=== PATIENT | female | born 1970 | race Caucasian/White ===

== ENCOUNTER 2023-03-19 09:18 | Outpatient (CLI) | payer MEDICARE, SELFPAY | END 2023-03-19 09:19 | disposition home or self-care (01) | LOC: KYNREF 09:20 | PROVIDERS: PCP Nurse Practitioner Family; Visit Provider Nurse Practitioner Family | DX: Z01.818 Encounter for other preprocedural examination (principal) | CPT/HCPCS: 84132 ==

== ENCOUNTER 2023-03-23 06:32 | Day surgery (SDC) | payer MEDICARE, SELFPAY ==
[2023-03-23 06:46] VITALS: BP 140/87; PULSE 84; RESP 16; TEMP 36.7; O2SAT 96
[2023-03-23] MEDS: LACTATED RINGERS 1000 ML 1,000 ML 100 ML IV (06:50)
[2023-03-23] MEDS: SODIUM CHLORIDE 0.9 % (FLUSH) 10 ML SYRINGE IVF (06:50)
[2023-03-23 06:59] VITALS: BMI 40.3
[2023-03-23] MEDS: MIDAZOLAM HCL 1 MG/ML inj IVP (07:08)
[2023-03-23] MEDS: fentaNYL 100 MCG/2 ML inj IVP (07:08)
[2023-03-23 07:09] VITALS: BP 130/84; PULSE 81; RESP 16; O2SAT 96
--- NOTE | 2023-03-23 07:15 | CRLHL7_ITS ---
For Patients: As a result of the Cures Act, medical imaging exams and procedure reports are released immediately into your electronic medical record. You may view this report before your referring provider. If you have questions, please contact your health care provider. Indication: intra-op wrist fx Technique: Four fluoroscopic images of the right wrist. Fluoroscopic time is 61.1 seconds. IMPRESSION: Fluoroscopic guidance for open reduction internal fixation right distal radial metaphyseal fracture. Dictated by Talib Donaldson MD @ 03/23/2023 10:45:39 AM (Electronically Signed)
--- NOTE | 2023-03-23 07:15 | SUR.PREOP ---
TIME?OUT:?0708 PT/RN/MDA?VERIFICATION?OF?SURGICAL?SITE,?PROCEDURE,?AND?CONSENT OBTAINED?PRIOR?TO?INVASIVE?PROCEDURE.
--- NOTE | 2023-03-23 08:02 | W.ANESCHARGE ---
Anesthesia Charges Start Date/Time Anesthesia Start Date: 03/23/23 Anesthesia Start Time: 07:19 Stop Date/Time Anesthesia Stop Date: 03/23/23 Anesthesia Stop Time: 08:51
--- NOTE | 2023-03-23 08:24 | P.ORPRC_ITS ---
Procedure Note Date of procedure: 03/23/23 Procedure: PREOPERATIVE DIAGNOSIS: Angulated 2 part extra-articular right upper extremity distal radius fracture POSTOPERATIVE DIAGNOSIS: Angulated 2 part extra-articular right upper extremity distal radius fracture NAME OF OPERATION: Open reduction internal fixation SURGEON: Nitin Ogden MD SECURITY ATTENDANT: Jessy Gerard PA-C ANESTHESIA: Supraclavicular block plus monitored anesthesia care ESTIMATED BLOOD LOSS: 0 mL COMPLICATIONS: None SPECIMENS: None DRAINS: None PREOPERATIVE ANTIBIOTICS: Ancef 3 grams INDICATIONS: The patient is a 52-year-old who fell landing on their upper extremity sustaining the above injury. Given the amount of angulation, reduction and plate fixation were recommended. The risks, benefits and expected outcomes were discussed in detail. These included but were not limited to: Infection, bleeding, injury to blood vessel or nerve, venous thromboembolism. All questions were answered to their satisfaction. Use of an assistant golf course superintendent was necessary throughout the case for patient positioning and safety, maintenance of the reduction, surgical site dressing and splint application. PROCEDURE: A supraclavicular block was placed by Anesthesia. The patient was placed supine on the operating room table. IV sedation was administered. The reduction was obtained with longitudinal traction and volar force on the distal fragment, held by the assistant golf course superintendent. The image intensifier was used to confirm an excellent reduction. The extremity was prepped and draped in the usual sterile fashion. The limb was exsanguinated with the bandage. The pneumatic tourniquet was inflated to 250 mm of mercury. A longitudinal incision was made over the flexor carpi radialis. Subcutaneous dissection was taken sharply through the FCR sheath. The FCR was retracted radially. Sharp dissection was carried through the floor of the FCR sheath. The flexor pollicis longus was retracted ulnarly. Sharp dissection was carried through the radial border of the pronator quadratus which was elevated ulnarly, exposing the fracture site. The assistant golf course superintendent held retractors to expose the fracture. The volar cortex of the fracture is anatomically aligned. We placed a Synthes standard, 6 hole volar locking plate over the volar cortex. It was provisionally held with a K-wire x 2, while the assistant golf course superintendent held the reduction. Its placement was confirmed with the image intensifier. We placed a cortical screw in the slot. We placed a locking screw in the shaft. We then filled the distal screw holes with smooth locking pegs using the image intensifier to confirm their extra-articular placement. Finally, a 2nd locking screw was placed in the shaft fragment. This construct was imaged in multiple views and was felt to be well placed with an anatomic reduction and well placed implants. The wound was irrigated normal saline. Subcutaneous tissues were reapproximated a 2-0 Vicryl, skin with a running 3-0 Monocryl in a subcuticular fashion. Glue was used to seal the skin. A dry dressing and short-arm dorsal volar splint was applied. These steps were all completed by the assistant golf course superintendent. The tourniquet was released, sponge and needle counts were correct x2. The patient tolerated the procedure well, there were no apparent complications. They were taken to the postanesthesia care unit in satisfactory condition. PLAN: The patient will be discharged home. They will work on elevation of the hand and active range of motion of the fingers. They will follow up next week in the office for a wound check with a PA, oblique, lateral and fossa lateral view of the wrist out of the splint prior to being seen in preparation for early active motion with Orthoplast splint protection.
--- NOTE | 2023-03-23 08:42 | P.NB_ITS ---
Nerve Block Nerve Block Time Seen by Provider: 07:13 Date Seen: 03/23/23 Type of block requested by surgeon for post-operative analgesia: axillary Side: right Time out performed: Yes Verification of patient name: Yes Verification of date of : Yes Site marking: site marked Name of person performing procedure: George Continuous monitoring Was continuous monitoring of O2 sat, B/P, portfolio specialist, recorded every 15 minutes?: Yes Procedure Checklist: sterile prep, needles and gloves Ultrasound guided. Images saved: Yes Medications given in 5ml increments after negative aspiration: Ropivicaine %: 0.5 mL: 30 Needle gauge: 22 Patient tolerated procedure well: Yes Additional comments: Needle noted adjacent to nerve Block Charges Block Charge (with Pro Fee): Brachial Plexus Use of Ultrasound Machine for Block: Yes- US Guidance/pain block
--- NOTE | 2023-03-23 08:42 | W.ANESCHARGE ---
Anesthesia Charges Start Date/Time Anesthesia Start Date: 03/23/23 Anesthesia Start Time: 07:19 Stop Date/Time Anesthesia Stop Date: 03/23/23 Anesthesia Stop Time: 08:51
[2023-03-23 08:47] VITALS: BP 140/96; PULSE 86; RESP 16; TEMP 36.7; O2SAT 95
[2023-03-23] MEDS: hydrOXYzine pamoate 25 MG CAPSULE PO (08:56)
[2023-03-23 09:00] VITALS: BP 102/77; PULSE 75; RESP 16; O2SAT 93
[2023-03-23 09:15] VITALS: BP 138/84; PULSE 77; RESP 16; O2SAT 96
[2023-03-23] MEDS: OXYCODONE 5 MG TABLET PO (09:26)
[2023-03-23 09:30] VITALS: BP 138/85; PULSE 75; RESP 16; O2SAT 96
== END 2023-03-23 10:13 | disposition home or self-care (01) ==
PROVIDERS: PCP Nurse Practitioner Family; Visit Provider Orthopaedic Surgery
PROC: (CPT 25575; principal; 2023-03-23 07:15)
DX: S52.551A Other extraarticular fracture of lower end of right radius, initial encounter for closed fracture (principal); G89.18 Other acute postprocedural pain
CPT/HCPCS: 25607; 01830; 64415; 73110; 76000; 76942; A4580; A9270; C1713; J2250; J2704; J2795; J3010; J7120

== ENCOUNTER 2023-05-05 15:00 | Outpatient (RCR) | payer MEDICARE, SELFPAY ==
--- NOTE | 2023-03-31 15:59 | OT.OPOE ---
OT Outpatient Ortho Eval OT Outpatient Ortho Eval* Start: 03/31/23 14:59 Freq: Status: Active Protocol: Document 03/31/23 14:59 AMB (Rec: 03/31/23 15:57 AMB [id number]) E-signed By Sarika Pires, OTR/L, CLT, BLASTING HELPER OT OP Ortho Eval Details Complexity Complexity Low Insurance Information Other Insurance A[employer] Outpatient History/Precautions Current Condition/Medical Diagnosis Referring Provider Dr Ogden Treatment Diagnosis RUE DR Steiner Date of Onset DOI: 03/11/23, DOS:03/23/23 Medical Conditions Depression,Metal Implants, Arthritis Other Conditions PMH: (copied from medical chart) Active Problems (Updated 03/11 @ 12:02 by Ariana Hammonds, GRAIN UNLOADER MACHINE, DELIMBER OPERATOR) Distal radial fracture (Acute) S52.509A - Unspecified fracture of the lower end of unspecified radius, initial encounter for closed fracture (ICD-10) Urinary tract infection (Acute ) N39.0 - Urinary tract infection, site not specified (ICD-10) History of gastric bypass ( Acute) Z98.84 - Bariatric surgery status (ICD-10) Urinary incontinence (Acute) R32 - Unspecified urinary incontinence (ICD-10) History of bladder surgery ( Acute) bladder sling x2 Z98.890 - Other specified postprocedural states (ICD-10) Encounter to establish care ( Acute) Z76.89 - Persons encountering health services in other specified circumstances (ICD- 10) Urinary frequency (Acute) R35.0 - Frequency of micturition (ICD-10) Cough (Acute) R05.9 - Cough, unspecified ( ICD-10) Nasal sore (Acute) right nostril, non-healing J34.89 - Other specified disorders of nose and nasal sinuses (ICD-10) Iron deficiency (Acute) E61.1 - Iron deficiency (ICD- 10) Chronic neck pain (Acute) M54.2 - Cervicalgia (ICD-10) G89.29 - Other chronic pain ( ICD-10) Chronic back pain (Acute) M54.9 - Dorsalgia, unspecified (ICD-10) G89.29 - Other chronic pain ( ICD-10) Anxiety and depression (Acute) F41.9 - Anxiety disorder, unspecified (ICD-10) F32.A - Depression, unspecified (ICD-10) Insomnia (Acute) G47.00 - Insomnia, unspecified (ICD-10) Hypertension (Acute) I10 - Essential (primary) hypertension (ICD-10) Surgical History (Updated @ 17:02 by Ariana Hammonds APRN, DELIMBER OPERATOR) History of gastric bypass Z98.84 - Bariatric surgery status (ICD-10) History of total knee replacement Z96.659 - Presence of unspecified artificial knee joint (ICD-10) History of bladder surgery Z98.890 - Other specified postprocedural states (ICD-10) History of bunionectomy Z98.890 - Other specified postprocedural states (ICD-10) History of tonsillectomy Z90.89 - Acquired absence of other organs (ICD-10) History of back surgery Z98.890 - Other specified postprocedural states (ICD-10) History of hysterectomy Z90.710 - Acquired absence of both cervix and uterus (ICD-10 ) Medical/Functional History Medical History Reviewed Yes Prior Level of Function/Mobility Full, pain-free use of her RUE . Social History Employment Status Retired Hobbies NA Fitness NA Ortho Subjective Subjective Subjective Pt states that she slipped and fell down the steps at her home on 03/11/23 sustaining the wrist fx. Pt was seen in urgent care and referred to orthopedics, underwent ORIF of the RUE DR on 03/23/23. Pt states she feels she is doing well, minimal pain most of the time, but if she bumps or twists her wrist/hand pain is 8/10. Range of Motion and Strength Wrist Range of Motion and Strength Wrist Range of Motion and Strength 03/31/23 AROM of the RUE wrist flex is 45, ext is 35, UD is 30, RD is 20, pronation is 50, supination is 70, composite fist is WNL. Strength testing was deferred secondary to the acuteness of injury/surgery. OT Objective Data Hand Hand Dominance Right Skin/Wounds/Edema Comments 03/31/23 Surgical incision is healing well, no drainage, no s/s of infection, covered with surgical glue. OT Problems Problems Problems Decreased Strength,Decreased Range of Motion,Decreased Dexterity,Pain,Lifting, Gripping,Pinching Other Problems Writing,Opening Containers, Dressing,Computer,Fasteners Patient Potential Good Assessment Assessment Assessment Pt presents to OT with pain, swelling, limited AROM, and weakness of the RUE secondary to DR steiner with ORIF. Pt is limited in her ability to open containers, cook, clean and has difficulty with self care tasks such as hooking her bra, brushing her teeth, etc. Pt will benefit from skilled OT intervention to address deficits and restore full, pain-free use of her RUE in order to resume independence with all ADLs and IADLs. Occupational Therapy Treatment Plan - OP Potential Rehabilitation Potential Good Set Goals Goals Set with Patient Yes Goals Goals 1. Pt will be independent and compliant with HEP in order to resume full, pain-free use of the involved UE. 3 weeks 2. Pt will demonstrate full, pain-free AROM of the involved UE in order to improve ability to grasp and hold. 6 weeks 3. 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 8 weeks. Treatment Plan Treatment Plan Evaluation,Edema Control,Joint Mobilization,Manual Therapy, Splinting,Wound Care/Scar Management,Therapeutic Exercise,Therapeutic Activities,Self Care/Home Management,Education Expected Frequency 1-2x Week Expected Duration 6-8 Weeks Home Program Home Program Home Program Initiated Home Program Specifics 03/31/23 Provided training and practice in HEP for AROM and non resisted muscle pumps for edema reduction of the RUE. Following demo, pt is able to complete exs with minimal cues . Pt was provided with written inst for use at home as well. Certification Certification I Certify That: Therapy Services Provided, Therapy Plan Established, Therapy Plan Reviewed Recertification Information Recertification Information Initial Certification Date 03/31/23 Recertification Due Date 06/29/23 Reasons to Continue Skilled Therapy Initiated OT today secondary to pain, weakness, swelling, and limited AROM of the RUE which limits independence in ADLs and IADLs. Rehabilitation Potential Good Continued Plan of Care and Interventions Please see above Provider Signature Shows Agreement With POC & Medical Necessity Physician Comment/Change Comment or Changes Physician NPI Number #
== END 2023-06-11 16:04 | disposition home or self-care (01) ==
PROVIDERS: PCP Nurse Practitioner Family; Visit Provider Orthopaedic Surgery
DX: S52.501D Unspecified fracture of the lower end of right radius, subsequent encounter for closed fracture with routine healing (principal); Z51.89 Encounter for other specified aftercare
CPT/HCPCS: 97140; 97165; L3906

== ENCOUNTER 2023-05-28 11:48 | Outpatient (CLI) | payer MEDICARE, SELFPAY | END 2023-05-28 11:49 | disposition home or self-care (01) | PROVIDERS: PCP Nurse Practitioner Family; Visit Provider Nurse Practitioner Family | DX: M25.50 Pain in unspecified joint (principal) | CPT/HCPCS: 85651; 86039; 86140; 86431 ==

== ENCOUNTER 2023-06-24 13:10 | Outpatient (CLI) | payer MEDICARE, SELFPAY | END 2023-06-24 13:11 | disposition home or self-care (01) | PROVIDERS: PCP Nurse Practitioner Family; Visit Provider Nurse Practitioner Family | DX: M25.50 Pain in unspecified joint (principal); R51.9 Headache, unspecified; Z11.9 Encounter for screening for infectious and parasitic diseases, unspecified; Z11.3 Encounter for screening for infections with a predominantly sexual mode of transmission | CPT/HCPCS: 85025; 85651; 86140; 86618; 87798 ==

== ENCOUNTER 2023-07-01 12:54 | Outpatient (CLI) | payer MEDICARE, SELFPAY | END 2023-07-01 12:55 | disposition home or self-care (01) | PROVIDERS: PCP Nurse Practitioner Family; Visit Provider Nurse Practitioner Family | DX: R82.90 Unspecified abnormal findings in urine (principal) | CPT/HCPCS: 81015; 87086 ==

== ENCOUNTER 2023-08-17 14:45 | Outpatient (CLI) | payer MEDICARE, SELFPAY ==
[2023-08-17 22:35] LABS: SARS PCR* POSITIVE SARS-CoV-2 (Negative)
== END 2023-08-17 14:46 | disposition home or self-care (01) ==
LOC: KYNREF 14:45
PROVIDERS: PCP Nurse Practitioner Family; Visit Provider Nurse Practitioner Family
DX: J11.1 Influenza due to unidentified influenza virus with other respiratory manifestations (principal)
CPT/HCPCS: 87635

== ENCOUNTER 2024-01-20 15:53 | Outpatient (CLI) | payer MEDICARE, SELFPAY ==
--- OUTSIDE RECORDS SUMMARY | 2024-01-20 15:56 | XMS_ITS | Clinical Summary ---
Author Name Unknown Organization [facility] Address [place], [place] [address] Care Team Providers Care Thread Cutter Name Role Phone Ayala Benites DO Primary Care Provider [phone] Allergies No known active allergies Medications Medication Sig Dispensed Refills Start Date End Date Status Cholecalciferol, Vitamin D3, (VITAMIN D-3) 5,000 unit tab Take by mouth once daily. Active Biotin 10,000 mcg capsule Take 1 capsule by mouth once daily. 0 10/28/2017 Active DULoxetine (CYMBALTA) 60 mg Delayed-release capsuleIndications:C hronic anxiety,Chronic bilateral low back pain with right-sided sciatica Take 1 capsule by mouth once daily. 90 capsule 3 06/28/2018 Active multivitamins with minerals (HAIR,SKIN AND NAILS) tablet Take 1 tablet by mouth once daily. 01/30/2019 Active ferrous sulfate, 65 mg elemental, tabletIndications:Ir on deficiency Take 1 tablet by mouth 2 times daily. 180 tablet 2 05/10/2019 Active ibuprofen (ADVIL; MOTRIN) 800 mg tabletIndications:Ba ck pain without radiation Take 1 tablet by mouth every 8 hours if needed. 270 tablet 1 05/10/2019 Active QUEtiapine (SEROQUEL) 100 mg tabletIndications:In somnia, idiopathic,MDD (major depressive disorder), recurrent severe, without psychosis (HC) Take 1 tablet by mouth at bedtime. 90 tablet 09/04/2019 Active ondansetron (ZOFRAN ODT) 4 mg disintegrating tabletIndications:Al cohol abuse Place 1 tablet on the tongue every 8 hours if needed for Nausea/Vomiting. 30 tablet 09/04/2019 Active zolpidem CR (AMBIEN CR) 12.5 mg Extended-Release tabletIndications:In somnia, idiopathic Take 1 tablet by mouth at bedtime if needed. 30 tablet 2 10/30/2019 Active gabapentin (NEURONTIN) 600 mg tabletIndications:Ch ronic bilateral low back pain with right-sided sciatica Take 1 tablet by mouth 3 times daily. 270 tablet 10/30/2019 Active cyclobenzaprine (FLEXERIL) 10 mg tabletIndications:Ch ronic bilateral low back pain with right-sided sciatica Take 1 tablet by mouth 3 times daily if needed for Muscle Spasm. 270 tablet 10/30/2019 Active sertraline (ZOLOFT) 100 mg tabletIndications:Al cohol abuse Take 1.5 tablets by mouth once daily. 135 tablet 10/30/2019 Active ondansetron (ZOFRAN) 4 mg tablet Take 4 mg by mouth 3 times daily if needed. 02/20/2020 Active amLODIPine (NORVASC) 10 mg tablet Take 10 mg by mouth. 05/22/2020 Active methylPREDNISolone (MEDROL) 4 mg tabletIndications:Ada mbar radicular pain Medrol Dosepack, Take As Directed 1 tablet 1 07/11/2020 Active busPIRone (BUSPAR) 15 mg tabletIndications:An xiety Take 15 mg by mouth 2 times daily. 60 Tab 5 07/17/2020 Active buprenorphine 5 mcg/hr (BUTRANS) 5 mcg/hour transdermal patchIndications:Lum bar disc herniation Apply 1 Patch on dry, clean, hairless skin once weekly. 4 Patch 07/23/2020 Active semaglutide (Ozempic) 2 mg/dose (8 mg/3 mL) pen Inject 0.75 mL (2 mg) subcutaneous once weekly. 3 mL 3 09/10/2023 Active Hospital, Clinic, or Other Facility Administered Medication Ordered Dose Route Frequency Start Date End Date Status midazolam (PF) (VERSED) injection 0.5-6 mgIndications:Lumbar radicular pain 0.5 - 6 mg IV EACH TIME PRN 07/17/2020 Active fentaNYL (PF) 50 mcg injection (SUBLIMAZE)Indications:Ada mbar radicular pain 50 mcg IV EACH TIME PRN 07/17/2020 Ac tive midazolam (PF) (VERSED) injection 0.5-6 mgIndications:Spondylosis of lumbar region without myelopathy or radiculopathy 0.5 - 6 mg IV EACH TIME PRN 08/09/2020 Active fentaNYL (PF) 50 mcg injection (SUBLIMAZE)Indications:Sp ondylosis of lumbar region without myelopathy or radiculopathy 50 mcg IV EACH TIME PRN 08/09/2020 Activ e Active Problems Patient Care Coordination No te Formatting of this note migh t be different from the original. Her children, and grandchildren are what matters most to Peggy. Peggy would like her care team to know has supportive kids, mother and her grandchildren. What are Peggy's challenges, stressors, or barriers? Financials, anxiety, Problem Noted Date Diagnosed Date Alcohol withdrawal syndrome without complication 04/01/2019 Hypertensive urgency 04/01/2019 Controlled substance agreement signed 04/11/2018 Overview: Controlled substance agreement signed on 04-11-18 in the pain clinic with Dr. Halley Verde MD, PhD Pain Management and Rehabilitation Specilialist of the [facility] pain clinic. See scanned images for further details. Last Assessment & Plan: Updated on 04-24-19. Primary osteoarthritis of both knees 12/24/2017 s/p pubovaginal sling repair 04/09/2017 Degenerative lumbar disc 02/19/2017 Status post lumbar discectomy 02/19/2017 Annular tear of lumbar disc 02/19/2017 Iron deficiency 12/02/2016 Menopausal hot flushes 12/02/2016 Failed back surgical syndrome 11/30/2016 Chronic bilateral low back pain with right-sided sciatica 08/24/2016 MDD (major depressive disord er), recurrent severe, without psychosis 08/24/2016 Closed fracture of sacrum and coccyx 03/09/2016 Controlled substance agreement signed 02/07/2016 Chronic abdominal pain 05/15/2015 Nausea and vomiting 06/22/2013 Gastric bypass status for obesity 03/23/2013 Torn meniscus S/P surgery 10/29/11 11/03/2011 Chronic anxiety 06/04/2011 Sleep disturbance 03/11/2011 Chronic headaches 01/29/2011 Chronic neck pain 01/29/2011 Incontinence in female Hypertension Resolved Problems Problem Noted Date Diagnosed Date Resolved Date Anxiety 02/05/2016 03/09/2016 Menopausal and perimenopausal disorder 11/07/2015 12/02/2016 Wheezing 02/07/2015 08/24/2016 Chronic pain 02/04/2015 03/09/2016 DUB (dysfunctional uterine bleeding) 02/04/2015 08/24/2016 Hypokalemia 06/22/2013 08/24/2016 Dehydration 06/22/2013 08/24/2016 Renal insufficiency 06/22/2013 08/24/20 16 Anxiety 03/23/2013 03/09/2016 Acute low back pain 11/03/2011 08/24/20 16 Chronic low back pain 11/06/20102015 Immunizations Name Administration Dates Next Due DT (Age < 7 years) 10/10/1993 Td (Age >=7 Years) 10/31/1992 Tdap 08/31/2018,09/15/2017,10/19/2007 Family History Medical History Relation Name Comments Cancer Maternal Grandfather Stroke Maternal Grandmother Diabetes Mother s/p amputations , kidney problems Kidney failure Mother Stage 4 Other Other Relation Name Status Comments Maternal Grandfather Maternal Grandmother Mother Other Social History Tobacco Use Types Packs/Day Years Used Date Smoking Tobacco: Never Cigarettes Smokeless Tobacco: Never Tobacco Cessation:Counseling Given: Yes Alcohol Use Standard Drinks/Week Comments Not Currently 0 (1 standard drink = 0.6 oz pure alcohol) 09/04/2019 - Declined to answer PHQ-2 Answer Date Recorded PHQ-2 Score 6 06/22/2019 Sex and Gender Information Value Date Recorded Sex Assigned at Not on file Gender Identity Not on file Sexual Orientation Not on file Obstetrics History Para Term AB IAB SAB Ectopic Multiple Livin g Live Births 2 2 2 2 Date Outcome GA Total Labor Labor/2nd/3rd Weight Sex Delivery Anes PTL Maggi A1 A5 Name Cl in Term Term Last Filed Vital Signs Vital Sign Reading Time Taken Comments Blood Pressure 136/80 09/04/2019 1:45 PM NEUROPHYSIOLOGICAL TECHNICIAN Pulse 102 09/04/2019 1:45 PM NEUROPHYSIOLOGICAL TECHNICIAN Temperature 36.6 ??C (97.8 ??F) 08/09/2020 1:26 PM CD T Respiratory Rate 18 09/04/2019 1:45 PM NEUROPHYSIOLOGICAL TECHNICIAN Oxygen Saturation 98% 08/09/2020 1:26 PM CDT Inhaled Oxygen Concentration - - Weight 104.3 kg (230 lb) 08/09/2020 1:26 PM CDT Height 172.7 cm (5' 8) 08/09/2020 1:26 PM CDT Body Mass Index 34.97 08/09/2020 1:26 PM CDT Plan of Treatment Health Maintenance Due Date Last Done Comments Colonoscopy through age 75 2014 Mammogram for age 45-75 2014 Zoster (shingles) series for age 50+ (1 of 2) 2019 Depression screening for age 12+ 09/04/2020 09/04/2019, 09/04/2019, 06/26/2019, Additional history exists BMI (ht and wt on same day) for age 18+ 08/09/2021 08/09/2020, 07/17/2020, 07/11/2020, Additional history exists Lipids for age 45-75 11/05/2021 11/05/2016, 11/24/19 14 COVID-19 vaccine series (2022- season) 2023 Influenza for age 50-64 06/11/2024 Tetanus booster 08/31/2028 08/31/2018, 03/2017, 10/19/2007, Additional history exists HIV for age 15-65 Completed 05/01/2016, 05/20/2012 Hepatitis C screening for age 18-79 Completed 05/01/2016 Tdap Completed 08/31/2018, 1203/2017, 10/19/2007 Pneumococcal series for age 6-64 Aged Out No longer eligible based on patient's age to complete this topic Goals Goal Patient Goal Type Associated Problems Recent Progress Patient-Stated? Author BLOOD PRESSURE-MA INTAINS BP LESS THAN 130/80 Blood Pressure No Janes [employer]e [employer] Medical Devices Implanted Type Area Threat Analyst Device Identifier Shelf Expiration Date Model / Serial / Lot Seamguard Reinforcement [id number] - [id number] Implanted:Qty: 2 on 03/22/2013 by Sergio Early MD at [facility] N/A: Stomach [employer] 11/10/2015 [id number] # / / [id number] Seamguard Reinforcement Gec60 - [id number] Implanted:Qty: 1 on 03/22/2013 by Sergio Early MD at [facility] N/A: Stomach [employer] 11/10/2015 [id number] # / / [id number] Screw Cnnltd [id number] Asnis Micro - [id number] Implanted:Qty: 1 on 07/04/2014 by Lukas Mcadams DPM at [facility] Right: Foot [employer] [id number]# / / Description:Load #4-3 2013 [employer]nn[employer] [id number] Asnis Micro - [id number] Implanted:Qty: 1 on 07/04/2014 by Lukas Mcadams DPM at [facility] Right: Foot [employer] [id number]# / / Description:Load #4-3 2013 Sling Pelvic Exact Retropubic Continence - [id number] Implanted:Qty: 1 on 02/04/2015 by Naveed Jimenes MD at [facility] N/A: Vagina [employer] 11/10/2015 [id number]# / / [id number] Sling Pelvic Lynx Suprapubic Continence - [id number] Implanted:Qty: 1 on 04/05/2017 by Cm Lucio MD at [facility] N/A: Vagina [facility] 02/05/2018 850-300# / / [id number] Explanted Type Area Threat Analyst Device Identifier Shelf Expiration Date Model / Serial / Lot Wire Kirs .[id number] Smooth6/Pk - [id number] Explanted:Qty: 1 on 07/04/2014 by Lukas Mcadams DPM at [facility] Right: Foot [employer]OMET TRAUMA 0# / / Description:Load #2-6 K-Wire [id number] Strl Sgl Use - [id number] Explanted:Qty: 3 on 07/04/2014 by Lukas Mcadams DPM at [facility] Right: Foot [employer] [id number]# / / Description:load#4-3 014 Procedures Procedure Name Priority Date/Time Associated Diagnosis Comments LIPID PANEL W REFLEX MEASURED LDL Routine 11/05/2016 2:35 PM NEUROPHYSIOLOGICAL TECHNICIAN Gastric bypass status for obesity ANTI HIV 1/2 Routine 05/01/2016 11:48 AM CDT Screening for STD (sexually transmitted disease) ANTI HCV Routine 05/01/2016 11:48 AM CDT Screening for STD (sexually transmitted disease) from Last 3 Months or Most Recently Relevant to Health Maintenance Results * (ABNORMAL) LIPID PANEL W REFLEX MEASURED LDL (11/05/2016 2:35 PM NEUROPHYSIOLOGICAL TECHNICIAN) CHOLESTEROL,TOTAL 180 100 - 199 mg/dL 11/05/2016 3:07 PM [facility] TRIGLYCERIDES 191(H) <150 mg/dL 11/05/2016 3:07 PM [facility] HDL CHOLESTEROL 47 >40 mg/dL 7 3:07 PM [facility] NON-HDL CHOLESTEROL 133 <145 mg/dl 11/05/2016 3:07 PM [facility] CHOL/HDL RATIO 3.83 <4.50 11/05/2016 3:07 PM [facility] LDL CHOLESTEROL 95 <=130 mg/dL 11/05/2016 3:07 PM [facility] PATIENT STATUS FASTING 11/05/2016 3:07 PM [facility] Blood BLOOD SPECIMEN / Unknown Venipuncture / Unknown 11/05/2016 2:35 PM NEUROPHYSIOLOGICAL TECHNICIAN 11/05/2016 2:48 PM NEUROPHYSIOLOGICAL TECHNICIAN Alisha Gomez MD CHEMISTRY [facility] SENDOUT INTERNAL ZIP [id number] [place] [address] * ANTI HCV (05/01/2016 11:48 AM CDT) HEPATITIS C ANTIBODY Non-Reacti ve Non-Reacti ve 05/01/2016 8:49 PM CDT [facility] Blood BLOOD SPECIMEN / Unknown Venipuncture / Unknown 05/01/2016 11:48 AM CDT 05/01/2016 12:57 PM CDT Narrative [facility] - 05/01/2016 8:49 PM CDT Antibodies to HCV not detected; does not exclude the possibility of exposure to HCV. Janes MUÑOZ [facility] [address] [place] [address], * ANTI HIV 1/2 (05/01/2016 11:48 AM CDT) HIV-1/HIV-2 ANTIBODY Non-Reacti ve Non-Reacti ve 05/01/2016 8:50 PM CDT [facility] Blood BLOOD SPECIMEN / Unknown Venipuncture / Unknown 05/01/2016 11:48 AM CDT 05/01/2016 11:50 AM CDT Narrative [facility] - 05/01/2016 8:50 PM CDT HIV-1 p24 and HIV-1/HIV-2 Ab not detected Janes MUÑOZ SEND OUTS [facility] [address] [place] [address], from Last 3 Months or Most Recently Relevant to Health Maintenance Mireille,Peggy S Workers Comp Self 1970 [address] [place] [id number] Mireille,Peggy S Workers Comp Self 1970 [address] [place] [address] Mireille,Peggy S Personal/Family Self 1970 [address] [place] [address] Peggy Kendrick Personal/Family Self 1970 [address] [place] [id number] Advance Directives * Full Code (Latest Code Status on File) Date Activated Date Inactivated Comments 04/01/2019 3:27 AM 04/01/2019 6:42 AM * Full Code Date Activated Date Inactivated Comments 04/05/2017 6:09 AM 04/05/2017 3:52 PM * Full Code Date Activated Date Inactivated Comments 03/09/2016 6:13 AM 03/10/2016 1:17 PM Question Answer Comments Code Status Discussion: Discussed * Full Code Date Activated Date Inactivated Comments 02/04/2015 11:13 AM 02/07/2015 3:57 PM * Full Code Date Activated Date Inactivated Comments 02/04/2015 10:21 AM 02/04/2015 11:13 AM Care Teams Thread Cutter Relationship Specialty Start Date End Date Ayala Benites DO [address] [place] [id number] PCP - General Family Practice 06/27/20
== END 2024-01-20 15:54 | disposition home or self-care (01) ==
LOC: KYNREF 15:54
PROVIDERS: PCP Nurse Practitioner Family; Visit Provider Nurse Practitioner Family
DX: R39.9 Unspecified symptoms and signs involving the genitourinary system (principal)
CPT/HCPCS: 81001; 87086

== ENCOUNTER 2024-01-25 08:21 | Outpatient (CLI) | payer MEDICARE, SELFPAY ==
--- OUTSIDE RECORDS SUMMARY | 2024-01-25 08:30 | XMS_ITS | Clinical Summary ---
Author Name Unknown Organization [facility] [employer] Address [place], [place] [address] Care Team Providers Care Electric Drill Operator Name Role Phone Ayala Benites DO Primary Care Provider [phone] Allergies No known active allergies Medications Medication [...] Pain Management and Rehabilitation Specilialist of the [facility] pain clinic. See scanned images for further [...] Comments Blood Pressure 136/80 09/04/2019 1:45 PM SUPPLY CATALOGUER Pulse 102 09/04/2019 1:45 PM SUPPLY CATALOGUER Temperature 36.6 ??C (97.8 ??F) 08/09/2020 1:26 PM CD T Respiratory Rate 18 09/04/2019 1:45 PM SUPPLY CATALOGUER Oxygen Saturation 98% 08/09/2020 1:26 PM CDT [...] [employer]e [employer] Medical Devices Implanted Type Area Dental Receptionist Device Identifier Shelf Expiration Date Model / Serial / Lot Seamguard Reinforcement Gec60 - [id number] Implanted:Qty: 2 on 03/22/2013 by Sergio Early MD at N/A: Stomach [employer] 11/10/2015 [id number] # / / [id number] Seamguard Reinforcement Gec60 - [id number] Implanted:Qty: 1 on 03/22/2013 by Sergio Early MD at N/A: Stomach [employer] 11/10/2015 [id number] # / / [id number] Scre[employer]nn[employer] [id number] Asnis Micro - [id number] Implanted:Qty: 1 on 07/04/2014 by Lukas Mcadams DPM at Right: Foot [employer] [id number]# / / Description:Load #4-3 2013 Scre[employer]nn[employer]td [id number] Asnis Micro - [id number] Implanted:Qty: 1 on 07/04/2014 by Lukas Mcadams DPM at Right: [employer] [id number]# / / Description:Load #4-3 2013 Sling Pelvic Exact Retropubic Continence - [id number] Implanted:Qty: 1 on 02/04/2015 by Naveed Jimenes MD at N/A: Vagina [employer] 11/10/2015 TVTRL# / / [id number] Sling Pelvic Lynx Suprapubic Continence - [id number] Implanted:Qty: 1 on 04/05/2017 by Cm Lucio MD at [facility] N/A: Vagina [facility] 02/05/2018 850-300# / / [id number] Explanted Type Area Dental Receptionist Device Identifier Shelf Expiration Date Model / Serial / Lot Wire Kirs .[id number] Smooth6/Pk - [id number] Explanted:Qty: 1 on 07/04/2014 by Lukas Mcadams DPM at Right: Foot BIOMET TRAUMA 0# / / Description:Load #2-6 K-Wire [id number] Strl Sgl Use - [id number] Explanted:Qty: 3 on 07/04/2014 by Lukas Mcadams DPM at Right: Foot [employer] [id number]# / / Description:load#4-3 014 Procedures Procedure Name Priority Date/Time Associated Diagnosis Comments LIPID PANEL W REFLEX MEASURED LDL Routine 11/05/2016 2:35 PM SUPPLY CATALOGUER Gastric bypass status for obesity ANTI HIV 1/2 Routine 05/01/2016 11:48 AM CDT Screening for STD (sexually transmitted disease) ANTI HCV Routine 05/01/2016 11:48 AM CDT Screening for STD (sexually transmitted disease) from Last 3 Months or Most Recently Relevant to Health Maintenance Results * (ABNORMAL) LIPID PANEL W REFLEX MEASURED LDL (11/05/2016 2:35 PM SUPPLY CATALOGUER) CHOLESTEROL,TOTAL 180 100 - 199 mg/dL 11/05/2016 3:07 PM [facility] TRIGLYCERIDES 191(H) <150 mg/dL 11/05/2016 3:07 PM [facility] HDL CHOLESTEROL 47 >40 mg/dL 7 3:07 PM [facility] NON-HDL CHOLESTEROL 133 <145 mg/dl 11/05/2016 3:07 PM [facility] CHOL/HDL RATIO 3.83 <4.50 11/05/2016 3:07 PM [facility] LDL CHOLESTEROL 95 <=130 mg/dL 11/05/2016 3:07 PM [facility] PATIENT STATUS FASTING 11/05/2016 3:07 PM [facility] Blood BLOOD SPECIMEN / Unknown Venipuncture / Unknown 11/05/2016 2:35 PM SUPPLY CATALOGUER 11/05/2016 2:48 PM SUPPLY CATALOGUER Alisha Gomez MD CHEMISTRY LABORATORY SENDOUT INTERNAL ZIP [address] [place] [id number] * ANTI HCV (05/01/2016 11:48 AM CDT) HEPATITIS C ANTIBODY Non-Reacti ve Non-Reacti ve 05/01/2016 8:49 PM CDT [facility] Blood BLOOD SPECIMEN / Unknown Venipuncture / Unknown 05/01/2016 11:48 AM CDT 05/01/2016 12:57 PM CDT Narrative [facility] - 05/01/2016 8:49 PM CDT Antibodies to HCV not detected; does not exclude the possibility of exposure to HCV. Janes MUÑOZ [facility] [address] [place] [address], * ANTI HIV 1/2 (05/01/2016 11:48 AM CDT) HIV-1/HIV-2 ANTIBODY Non-Reacti ve Non-Reacti ve 05/01/2016 8:50 PM CDT [facility] Blood BLOOD SPECIMEN / Unknown Venipuncture / Unknown 05/01/2016 11:48 AM CDT 05/01/2016 11:50 AM CDT Narrative [facility] - 05/01/2016 8:50 PM CDT HIV-1 p24 and HIV-1/HIV-2 Ab not detected Janes MUÑOZ SEND OUTS [facility] [address] [place] [address], from Last 3 Months or Most Recently Relevant to Health Maintenance Mireille,Peggy S Workers Comp Self [address] [place] [address] Mireille,Peggy S Workers Comp Self [address] [place] [address] Mireille,Peggy S Personal/Family Self [address] [place] [address] Peggy Kendrick Personal/Family Self [address] [place] [address] Advance Directives * Full Code (Latest Code [...] 10:21 AM 02/04/2015 11:13 AM Care Teams Electric Drill Operator Relationship Specialty Start Date End Date Ayala Benites DO [address] [place] [id number] PCP - General Family Practice 06/27/20
== END 2024-01-25 08:22 | disposition home or self-care (01) ==
PROVIDERS: PCP Nurse Practitioner Family; Visit Provider Nurse Practitioner Family
DX: E61.1 Iron deficiency (principal); I10 Essential (primary) hypertension; Z13.220 Encounter for screening for lipoid disorders; Z79.899 Other long term (current) drug therapy
CPT/HCPCS: 80053; 80061; 82306; 85025

== ENCOUNTER 2024-05-23 14:56 | Outpatient (CLI) | payer OTHER, SELFPAY ==
--- OUTSIDE RECORDS SUMMARY | 2024-05-23 15:01 | XMS_ITS | Encounter Summary ---
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 Venipuncture / Unknown 04/29/2024 7:31 AM CDT 04/29/2024 7:36 AM CDT Ayala Garcia MD LAB_1 Performing Organization Address City/[facility]/ZIP Co de Phone Number [address] * Troponin I (04/29/2024 7:31 AM CDT) Troponin I 0.01 0.00 - 0.03 ng/mL 04/29/2024 8:08 AM [facility] Blood Venipuncture / Unknown 04/29/2024 7:31 AM CDT 04/29/2024 7:36 AM CDT Michael Salter MD LAB_1 Performing Organization Address City/[facility]/ZIP Co de Phone Number [address] * (ABNORMAL) Basic Metabolic Panel (04/29/2024 7:31 AM CDT) Sodium 140 136 - 145 mmol/L 04/29/2024 8:04 AM [facility] Potassium 3.5 3.5 - 5.1 mmol/L 04/29/2024 8:04 AM [facility] Chloride 110(H) 98 - 109 mmol/L 04/29/2024 8:04 AM [facility] CO2 22 20 - 29 mmol/L 04/29/2024 8:04 AM [facility] Anion Gap 8 6 - 16 mmol/L 04/29/2024 8:04 AM [facility] Calcium 8.7 8.4 - 10.4 mg/dL 04/29/2024 8:04 AM [facility] BUN 11 7 - 26 mg/dL 04/29/2024 8:04 AM [facility] Creatinine 0.74 0.55 - 1.02 mg/dL 04/29/2024 8:04 AM [facility] Glucose 118(H) 70 - 100 mg/dL 04/29/2024 8:04 AM [facility] Comment:The given reference range is for the fasting state. Non-fasting reference range for glucose is 70 - 180 mg/dL. GFR, Estimated >60 >60 mL/min/1.7 3m2 04/29/2024 8:04 AM [facility] Blood Venipuncture / Unknown 04/29/2024 7:31 AM CDT 04/29/2024 7:36 AM CDT Oscar Gary MD LAB_1 Performing Organization Address [facility]/ZIP Co de Phone Number [address] * IV Insertion, LST Perform (04/28/2024 6:42 PM CDT) Pathologist [facility] IV INSERTION, LST PERFORM (LAB) Done 04/29/2024 12:00 AM [facility] Other Specimen Type IV Start / Unknown 04/28/2024 6:42 PM CDT 04/28/2024 10:11 PM CDT Oscar Gary MD LAB_1 Performing Organization Address [facility]/ZIP Co de Phone Number [address] * (ABNORMAL) Liver Panel(Hepatic Function Panel) (04/28/2024 8:02 AM CDT) Alkaline Phosphatase 146 40 - 150 U/L 04/28/2024 8:54 AM [facility] Bilirubin, Total 0.7 0.2 - 1.2 mg/dL 04/28/2024 8:54 AM [facility] Bilirubin, Direct 0.2 0.0 - 0.5 mg/dL 04/28/2024 8:54 AM [facility] AST (SGOT) 44(H) 10 - 40 U/L 04/28/2024 8:54 AM [facility] ALT (SGPT) 36 <=55 U/L 04/28/2024 8:54 AM CDT [facility] Protein, Total 6.5 6.4 - 8.3 g/dL 04/28/2024 8:54 AM CDT [facility] Albumin 3.8 3.5 - 5.0 g/dL 04/28/2024 8:54 AM CDT [facility] Blood Venipuncture / Unknown 04/28/2024 8:02 AM CDT 04/28/2024 8:20 AM CDT Michael Salter MD LAB_1 Performing Organization Address City/[facility]/ZIP Co de Phone Number [address] * Phosphorus (04/28/2024 8:02 AM CDT) Phosphorus 3.1 2.3 - 4.7 mg/dL 04/28/2024 8:54 AM CDT [facility] Blood Venipuncture / Unknown 04/28/2024 8:02 AM CDT 04/28/2024 8:20 AM CDT Michael Salter MD LAB_1 Performing Organization Address [facility] Co de Phone Number [address] * Magnesium (04/28/2024 8:02 AM CDT) Magnesium 2.0 1.6 - 2.6 mg/dL 04/28/2024 8:54 AM CDT [facility] Blood Venipuncture / Unknown 04/28/2024 8:02 AM CDT 04/28/2024 8:20 AM CDT Michael Salter MD LAB_1 Performing Organization Address [facility] Co de Phone Number [address] * (ABNORMAL) Basic Metabolic Panel (04/28/2024 8:02 AM CDT) Sodium 138 136 - 145 mmol/L 04/28/2024 8:54 AM [facility] Potassium 3.8 3.5 - 5.1 mmol/L 04/28/2024 8:54 AM [facility] Comment:Specimen slightly he molyzed. Hemolysis may affect result. Chloride 106 98 - 109 mmol/L 04/28/2024 8:54 AM [facility] CO2 19(L) 20 - 29 mmol/L 04/28/2024 8:54 AM [facility] Anion Gap 13 6 - 16 mmol/L 04/28/2024 8:54 AM [facility] Calcium 8.7 8.4 - 10.4 mg/dL 04/28/2024 8:54 AM [facility] BUN 10 7 - 26 mg/dL 04/28/2024 8:54 AM [facility] Creatinine 0.72 0.55 - 1.02 mg/dL 04/28/2024 8:54 AM [facility] Glucose 103(H) 70 - 100 mg/dL 04/28/2024 8:54 AM [facility] Comment:The given reference range is for the fasting state. Non-fasting reference range for glucose is 70 - 180 mg/dL. GFR, Estimated >60 >60 mL/min/1.7 3m2 04/28/2024 8:54 AM [facility] Blood Venipuncture / Unknown 04/28/2024 8:02 AM CDT 04/28/2024 8:20 AM T Michael Salter MD LAB_1 Performing Organization Address City/[facility] Co de Phone Number [id number] [place] [address] * Complete Blood Count-No Diff (04/28/2024 8:02 AM CDT) WBC 8.3 3.5 - 10.5 x10(9)/L 04/28/2024 8:36 AM [facility] RBC 4.72 3.90 - 5.03 x10(12)/L 04/28/2024 8:36 AM [facility] Hemoglobin 13.7 12.0 - 15.5 g/dL 04/28/2024 8:36 AM [facility] HCT 41.0 34.9 - 44.5 % 04/28/2024 8:36 AM [facility] MCV 86.9 80.0 - 100.0 fL 04/28/2024 8:36 AM [facility] MCH 29.0 27.6 - 33.3 pg 04/28/2024 8:36 AM [facility] MCHC 33.4 31.5 - 35.2 g/dL 04/28/2024 8:36 AM [facility] RDW 14.6 11.9 - 15.5 % 04/28/2024 8:36 AM [facility] Platelets 275 150 - 450 x10(9)/L 04/28/2024 8:36 AM [facility] Automated NRBC 0 <=0 /100 WBC 04/28/2024 8:36 AM [facility] Blood Venipuncture / Unknown 04/28/2024 8:02 AM CDT 04/28/2024 8:20 AM CDT Michael Salter MD LAB_1 Performing Organization Address City/[facility]/ZIP Co de Phone Number [address] * Blood Culture (04/28/2024 1:00 AM CDT) Blood Culture No Growth at 5 Days RH LAB ETEST METHOD 05/03/2024 2:00 AM CDT [facility] Blood VENIPUNCTURE / Unknown Venipuncture / Unknown 04/28/2024 1:00 AM CDT 04/28/2024 1:08 AM CDT Janie Valle MD LAB_1 [address] * Blood Culture (04/28/2024 1:00 AM CDT) Blood Culture No Growth at 5 Days RH LAB ETEST METHOD 05/03/2024 2:00 AM CDT [facility] Blood VENIPUNCTURE / Unknown Venipuncture / Unknown 04/28/2024 1:00 AM CDT 04/28/2024 1:08 AM CDT Janie Valle MD LAB_1 Performing Organization Address [facility] Phone Number [address] * Lactate Panel, Venous POCT (04/28/2024 12:42 AM CDT) Lactate, Whole Blood 0.60 0.50 - 2.00 mmol/L 04/28/2024 12:44 AM CDT [facility] PO2, Venous 42 30 - 50 mmHg 04/28/2024 12:44 AM CDT [facility] Performing Location [facility]CLAB ED E 04/28/2024 12:44 AM CDT [facility] Blood 04/28/2024 12:4 2 AM CDT 04/28/2024 12:44 AM CDT Janie Vlale MD LAB_1 Performing Organization Address [facility] Phone [address] * Troponin I (04/27/2024 11:36 PM CDT) Troponin I <0.01 0.00 - 0.03 ng/mL 04/28/2024 12:17 AM CDT [facility] Blood Venipuncture / Unknown 04/27/2024 11:36 PM CDT 04/27/2024 11:42 PM CDT Janie Valle MD LAB_1 Performing Organization Address [facility] de Phone Number [address] * (ABNORMAL) Urine Culture (04/27/2024 11:35 PM CDT) Urine Culture Growth(A) 04/29/2024 5:07 PM T [facility] Urine Culture >100,000 CFU/mL Mixed Bacterial Growth 04/29/2024 5:07 PM CDT [facility] Comment:Mixed Bacterial Grow th indicates the specimen is likely contaminated at collection with urogenital and/or fecal jen. Urine URINE SPECIMEN COLLECTION, CLEAN CATCH / Unknown Non-blood Collection / Unknown 04/27/2024 11:35 PM CDT 04/28/2024 12:47 AM CDT Khurram Graham PA-C LAB_[address] [address], [facility] * (ABNORMAL) UA Conditional UC: Clean Catch (04/27/2024 11:35 PM CDT) Urine Culture Comment Urinalysis results meet criteria for reflex, culture performed. 04/28/2024 12:47 AM [facility] Urine Color Yellow 04/28/2024 12:47 AM [facility] Urine Clarity Turbid(A) Clear 04/28/2024 12:47 AM [facility] Specific [place], Urine 1.026 <1.030 04/28/2024 12:47 AM [facility] PH Urine 6.0 5.0 - 8.0 04/28/2024 12:47 AM [facility] Protein, Urine Qual (mg/dL) 20 Negative, 10 , 20 04/28/2024 12:47 AM [facility] Glucose Urine Qual (mg/dL) Normal (Negative) Normal (Negative), 30 , 50 04/28/2024 12:47 AM [facility] Ketones, Urine (mg/dL) 40(A) Negative, Trace 04/28/2024 12:47 AM [facility] Urobilinogen, Urine (EU/dL) Normal (Negative) Normal (Negative) 04/28/2024 12:47 AM [facility] Bilirubin Urine (mg/dL) Negative Negative 04/28/2024 12:47 AM [facility] Blood, Urine (mg/dL) 0.50 (Moderate)(A) Negative, 0.03 (Trace) 04/28/2024 12:47 AM [facility] Nitrite Urine Negative Negative 04/28/2024 12:47 AM [facility] Leukocyte Esterase, Urine (Mandi/uL) 500 (Large)(A) Negative, 25 (Trace) 04/28/2024 12:47 AM [facility] Red Blood Cells 6(H) 0 - 3 /HPF 04/28/2024 12:47 AM CDT [facility] White Blood Cells 34(H) 0 - 5 /HPF 04/28/2024 12:47 AM CDT [facility] Bacteria Few(A) None Seen /HPF 04/28/2024 12:47 AM [facility] Squamous Epithelial Cells Occasional None Seen, Occasional, Few /HPF 04/28/2024 12:47 AM [facility] Mucus Present(A) None Seen /HPF 04/28/2024 12:47 AM CDT [facility] Urine Source Clean Catch 04/28/2024 12:47 AM CDT [facility] Urine URINE SPECIMEN COLLECTION, CLEAN CATCH / Unknown Non-blood Collection / Unknown 04/27/2024 11:35 PM CDT 04/27/2024 11:42 PM CDT Narrative [facility] - 04/28/2024 12:47 AM CDT The qualitative interpretive guidance provided (e.g., small, moderate, large) is intended to aid in quantitative result interpretation. It is not itself an FDA-cleared test result. Khurram Graham PA-C LAB_1 Performing Organization Address City/State/[facility] [place] [address], [facility] * XR Chest 1 View (04/27/2024 10:37 PM CDT) Anatomical Region Laterality Modality Chest, Lung Computed Radiogr aphy 04/27/2024 10:3 7 PM CDT Narrative 04/27/2024 10:48 PM CDT EXAM: XR CHEST 1 VIEW LOCATION: [facility] DATE: 04/27/2024 INDICATION: Cp, PAIN COMPARISON: 04/01/2019 IMPRESSION: Heart size and pulmonary vascularity normal. The lungs are clear. Old left eighth rib fracture. Right cervical rib. Procedure Note Jesus Sheets MD - 04/27/2024 EXAM: XR CHEST 1 VIEW LOCATION: [facility] DATE: 04/27/2024 INDICATION: Cp, PAIN COMPARISON: 04/01/2019 IMPRESSION: Heart size and pulmonary vascularity normal. The lungs areclear. Old left eighth rib fracture. Right cervical rib. Khurram Graham PA-C RAD GD * Troponin I (04/27/2024 9:36 PM CDT) Pathologist [facility] Troponin I <0.01 0.00 - 0.03 ng/mL 04/27/2024 10:09 PM CDT [facility] Blood Venipuncture / Unknown 04/27/2024 9:36 PM CDT 04/27/2024 9:38 PM CDT Khurram Graham PA-C LAB_1 Performing Organization Address [facility]/ZIP Co de Phone Number [address] * (ABNORMAL) Magnesium (04/27/2024 9:36 PM CDT) Pathologist [facility] Magnesium 1.5(L) 1.6 - 2.6 mg/dL 04/27/2024 10:07 PM CDT [facility] Blood Venipuncture / Unknown 04/27/2024 9:36 PM CDT 04/27/2024 9:38 PM CDT Donnie Felix MD LAB_1 Performing Organization Address [facility] Co de Phone Number [address] * (ABNORMAL) Liver Panel (Hepatic Function Panel) (04/27/2024 9:36 PM CDT) Pathologist [facility] Alkaline Phosphatase 156(H) 40 - 150 U/L 04/27/2024 10:07 PM CDT [facility] Bilirubin, Total 1.0 0.2 - 1.2 mg/dL 04/27/2024 10:07 PM CDT [facility] Bilirubin, Direct 0.4 0.0 - 0.5 mg/dL 04/27/2024 10:07 PM T [facility] AST (SGOT) 47(H) 10 - 40 U/L 04/27/2024 10:07 PM CDT [facility] ALT (SGPT) 33 <=55 U/L 04/27/2024 10:07 PM CDT [facility] Protein, Total 6.9 6.4 - 8.3 g/dL 04/27/2024 10:07 PM [facility] Albumin 4.1 3.5 - 5.0 g/dL 04/27/2024 10:07 PM [facility] Blood Venipuncture / Unknown 04/27/2024 9:36 PM CDT 04/27/2024 9:38 PM CDT Donnie Felix MD LAB_1 Performing Organization Address [facility] Co de Phone Number [address] * Alcohol (ethyl) Level (04/27/2024 9:36 PM CDT) Ethyl Alcohol <0.01 <=0.01 g/dL 04/27/2024 10:07 PM [facility] Blood Venipuncture / Unknown 04/27/2024 9:36 PM CDT 04/27/2024 9:38 PM CDT [facility] 04/27/2024 10:07 PM CDT For medical purposes only; not valid for forensic, legal, or employment use. Donnie Felix MD LAB_1 Performing Organization Address [facility] Phone Number [address] * (ABNORMAL) Basic Metabolic Panel (04/27/2024 9:36 PM CDT) Sodium 136 136 - 145 mmol/L 04/27/2024 10:07 PM [facility] Potassium 4.4 3.5 - 5.1 mmol/L 04/27/2024 10:07 PM [facility] Comment:Specimen slightly he molyzed. Hemolysis may affect result. Chloride 103 98 - 109 mmol/L 04/27/2024 10:07 PM [facility] CO2 16(L) 20 - 29 mmol/L 04/27/2024 10:07 PM [facility] Anion Gap 17(H) 6 - 16 mmol/L 04/27/2024 10:07 PM [facility] Calcium 9.0 8.4 - 10.4 mg/dL 04/27/2024 10:07 PM [facility] BUN 16 7 - 26 mg/dL 04/27/2024 10:07 PM [facility] Creatinine 0.74 0.55 - 1.02 mg/dL 04/27/2024 10:07 PM [facility] Glucose 145(H) 70 - 100 mg/dL 04/27/2024 10:07 PM [facility] Comment:The given reference range is for the fasting state. Non-fasting reference range for glucose is 70 - 180 mg/dL. GFR, Estimated >60 >60 mL/min/1.7 3m2 04/27/2024 10:07 PM [facility] Blood Venipuncture / Unknown 04/27/2024 9:36 PM CDT 04/27/2024 9:38 PM CDT Donnie Felix MD LAB_1 Performing Organization Address City/State/[facility] [place] [address], [facility] * (ABNORMAL) Complete Blood Count -no Diff (04/27/2024 9:02 PM CDT) WBC 13.7(H) 3.5 - 10.5 x10(9)/L 04/27/2024 9:10 PM [facility] RBC 5.53(H) 3.90 - 5.03 x10(12)/L 04/27/2024 9:10 PM [facility] Hemoglobin 15.7(H) 12.0 - 15.5 g/dL 04/27/2024 9:10 PM [facility] HCT 48.2(H) 34.9 - 44.5 % 04/27/2024 9:10 PM [facility] MCV 87.2 80.0 - 100.0 fL 04/27/2024 9:10 PM [facility] MCH 28.4 27.6 - 33.3 pg 04/27/2024 9:10 PM [facility] MCHC 32.6 31.5 - 35.2 g/dL 04/27/2024 9:10 PM [facility] RDW 14.2 11.9 - 15.5 % 04/27/2024 9:10 PM [facility] Platelets 300 150 - 450 x10(9)/L 04/27/2024 9:10 PM CDT [facility] Automated NRBC 0 <=0 /100 WBC 04/27/2024 9:10 PM CDT [facility] Blood Venipuncture / Unknown 04/27/2024 9:02 PM CDT 04/27/2024 9:06 PM CDT Donnie Felix MD LAB_1 Performing Organization Address [facility] Co de Phone Number [facility] [address] [place] [address], [facility] * ECG 12-LEAD ROUTINE (04/27/2024 8:43 PM CDT) Ventricular Rate 109 BPM [facility] Atrial Rate 109 BPM [facility] P-R Interval 138 ms [facility] QRS Duration 74 ms [facility] QT 332 ms [facility] QTc 447 ms [facility] P [place] 80 degrees MUSE G[facility] R [place] 23 degrees MUSE [facility] T [place] 48 degrees [facility] 04/27/2024 8:43 PM CDT Narrative [facility] - 04/28/2024 8:30 AM CDT Poor data quality, interpretation may be adversely affected Sinus tachycardia Nonspecific ST abnormality Abnormal ECG When compared with ECG of 21-MAY-2020 18:41, No significant change was found Confirmed by Shaquille Lanier ([id number]) on 04/28/2024 8:30:17 AM Procedure Note Shaquille Lanier MD - 04/28/2024 Poor data quality, interpretation may be adversely affected Sinus tachycardia Nonspecific ST abnormality Abnormal ECG When compared with ECG of 21-MAY-2020 18:41, No significant change was found Confirmed by Shaquille Lanier ([id number]) on 04/28/2024 8:30:17 AM Lety Alvarez MD EKG Performing Organization Address [facility] Co de Phone Number [address] [place] [address] * Glucose, Whole Blood POCT (04/27/2024 8:32 PM CDT) Glucose, Whole Blood 130 70 - 180 mg/dL 04/27/2024 8:34 PM CDT [facility] Performing Location [facility] ED T 04/27/2024 8:34 PM CDT [facility] Blood 04/27/2024 8:32 PM CDT 04/27/2024 8:34 PM CDT Interface Provider LAB_1 Performing Organization Address City/State/[facility] de Phone Number [facility] [address] [place] [address], [facility] documented in this encounter Visit Diagnoses Diagnosis Ileus (HRC)- Primary Paralytic ileus Hypomagnesemia Disorders of magnesium metabolism Nausea and vomiting, unspecified vomiting type Urinary tract infection with hematuria, site unspecified Bladder problem Unspecified disorder of bladder Ileus (HRC) Paralytic ileus Nausea Nausea alone Essential hypertension (HRC) Unspecified essential hypertension History of alcohol abuse Nondependent alcohol abuse, in remission Chronic anxiety (HRC) Anxiety state, unspecified Chronic low back pain Lumbago Chronic neck pain Cervicalgia Bariatric surgery status * Plan of Care - Tami Grijalva RN - 05/01/2024 6:19 PM CDT Pt. Alert and oriented x4. Able to make her needs known. Stated feeling better today but still having some nausea with eating. Up walking in the [place] x1. Decided it would be best to stay one more night with nausea. Call light in reach. * Plan of Care - Raisa Joshua RN - 05/01/2024 7:03 AM CDT [facility] Plan of Care Note Assessment: pain, comfort, Plan: assess and intervene as needed Subjective: Objective: A/Ox4. VSS on room air. Denies CP, SOB, N/V, lightheadedness and dizziness. Pain 06/20. Medicated pain per DEC. CIWAs 1. Independent. Able to make needs known. Sleeping between cares. Call light within reach. --- End of Report --- * Plan of Care - Raisa Joshua RN - 04/30/2024 7:20 AM CDT [facility] Plan of Care Note Assessment: pain, comfort Plan: assess and intervene as needed Subjective: Objective: A/Ox4. VSS on room air. Denies CP, SOB. N/V continuous. Lightheadedness when up with activity. Educated pt about calling staff for assistance. Numbness and tingling in back. Pain 06/20. Medicated pain per DEC. CIWAs 3-4. Able to make needs known. Sleeping between cares. Call light within r each. 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 Yes Prior Level of Function Details: Independent at baseline.Denied the use of any DMEs. Living Environment: Living Arrangements (select all that apply): Spouse/significant other, Home - 2 story Medication management by: patient How medications are managed: pillbox Personal Assistive Devices: None Physical/Mobility Assistive Devices: None Food Insecurity: Food Insecurity Present (04/28/2024) Hunger Vital Sign Worried About Running Out of Food in the Last Year: Often true Ran Out of Food in the Last Year: Often true Coping/Stress: Sources of Support: spouse Emotional/Psychological: Current Patient Assessment: appropriate, pleasant, tearful Barriers: patient continues to require acute medical care Current Services: Prior Services: Selected Continued Care - Admitted Since 04/27/2024 No services have been selected for the patient. Transport Needs: Anticipated Transportation Mode: Private Vehicle Primary Care: Primary Care Clinic: [facility] Primary Care Physician: Agustin Kelly MD Functional Level Prior: Functional Screen (Baseline Prior to Admission) Ambulation: Independent Transferring: Independent Toileting: Independent Bathing: Independent Dressing: Independent Eating: Independent Communication: Understands/communicates without difficulty Swallowing: Swallows foods/liquids without difficulty Meal Preparation: Independent Laundry: Independent Finances: Independent Shopping: Independent Transportation: Drives Independently Prior Level of Function Details: Independent at baseline.Denied the use of any DMEs. Insurance: MEDICARE Readmission Assessment: Additional Comments: Reviewed patient's chart and discussed plan of care with team during care connection. Met with patient, introduced myself and my role as registered nurse hh case manager/rn social services. CM verified demographics, PCP and emergency contacts. Patient currently lives in a private residential home with her spouse, daughter, and grand kids. The patient is independent at baseline and denied the use of any DMEs at home. She denied current or prior services at home. She manages her own medications at home. Has support from spouse. Patient drives self to get to their medical appointments. PCP is Agustin Kelly MD Patient denies case management community support Admitted for Nausea and Vomiting. Patient is not medically cleared and not ready for discharge, pending clinical improvement and medical clearance. Provider anticipates patient will need another 1-2 more days in the hospital. Anticipated Discharge Plan: Home. Barriers to their discharge: Medical Clearance, Addiction Medicine Consult, [facility] Community Resources: N/A Anticipated transport at time of discharge: Spouse. CM/SW Action Items: Met with patient and discussed about discharge disposition. The patient denied any concerns about discharge once she is medically cleared and ready. She confirmed that her would be available to pick her up at [facility] once she's medically stable. The patient denied any concerns about substance abuse, alcohol intake, and about mental health whenasked by property underwriter. The patient stated that prior to this admission, she was baby sitting her grand kids. She admitted that she missed to take her medications thinking that she would be able to get by without taking it.Otherwise,she did stated and confirmed that she has enough supply of medications at home and actively making a follow-up with her PCP. The patient denied any interest with resourcesrelated to substance abuse/alcohol. The patient voiced out frustrations about feeling of being misjudged by staff about her drinking, as she have not been drinking alcohol for about a year now. Active listening provided by property underwriter. CM/SW Team will continue to follow for coordination of care, discharge planning and offer support as needed. Tai Mancuso RN * Plan of Care - Annie Hernandez RN - 04/29/2024 7:34 AM CDT [facility] Plan of Care Note Assessment: Plan of care Plan: Continue to monitor, intervene as needed Subjective: Pt reports mild nausea, BREWSTER and back pain Objective: Pt alert, withdrawn. Mild relief from nausea with prn anti-emetics. BREWSTER and back pain managed with [place] and warm packs. Mild tremor noted to BUE with activity. Ambulating to BR with SBA, gait unsteady. Slept between cares. Addendum: Pt reporting continued nausea, BREWSTER, CP and SOB this darlene VAUGHN notified - see note. PRN valium given for CIWA 11. Mild relief reported. --- End of Report --- * Plan of Care - Michael Salter MD - 04/29/2024 5:53 AM CDT [facility] note: Called for anxiety, shortness of breath, and chest pain. Chart review notable for concurrent diastolic hypertension. CIWA is 9. Will add diazepam per CIWA protocol. Trop w/ morning lab draw. * Plan of Care - Annie Hernandez RN - 04/29/2024 5:39 AM CDT [facility]. Practitioner Notified Note Name of Practitioner notified: Caitlin Time of Practitioner notification: 5:40 AM Reason: Pt c/o left side CP and feeling SOB. BP 159/102 HR 82, 97% on room air. Feels anxious. Similar symptoms upon arrival to ED. Please advise. Response: Additional labs ordered. PRN valium per [facility] protocol. * Plan of Care - Daniel Mensah, [facility] - 04/28/2024 8:13 AM CDT [facility] Medication History Note 1. Source(s) of Medication Information: Patient, Nacho/Dr. Smalls 2. Pertinent Information: Recent prior to admission medication changes: Medications added: albuterol, phentermine Medications deleted: cyclobenzaprine, mupirocin, nystatin Medications changed: baclofen 3. Outpatient Medications Marked as Taking: Outpatient Medications Marked as Taking for the 04/27/24 encounter (Hospital Encounter) Medication Sig Note Last Dose ALBUterol sulfate HFA 108 (90 Base) MCG/ACT inhaler Inhale 1-2 Puffs every 4 hours as needed for Wheezing. amitriptyline (ELAVIL) 25 MG tablet Take 1 Tablet (25 mg) by mouth every evening. amLODIPine (NORVASC) 10 MG tablet Take 1 Tablet (10 mg) by mouth daily. baclofen (LIORESAL) 10 MG tablet Take 1 Tablet (10 mg) by mouth three times a day. Patient states taking 2 tablets (20 mg) in the morning and 1 tablet (10 mg) at night busPIRone (BUSPAR) 15 MG tablet Take 1 Tablet (15 mg) by mouth two times a day. ferrous sulfate 325 (65 Fe) MG tablet Take 1 Tablet (325 mg) by mouth daily with breakfast. FLUoxetine (PROZAC) 20 MG capsule Take 3 Capsules (60 mg) by mouth daily. gabapentin (NEURONTIN) 800 MG tablet Take 1 Tablet (800 mg) by mouth 4 times a day. HYDROcodone-acetaminophen (NORCO) 5-325 MG tablet Take 1 Tablet by mouth three times a day as needed. hydrOXYzine pamoate (VISTARIL) 25 MG capsule Take 1-2 tablets by mouth every 6 hours as needed 04/28/2024: Takes prn for anxiety ibuprofen (MOTRIN) 800 MG tablet Take 1 Tablet (800 mg) by mouth every 8 hours as needed. for pain naloxone (NARCAN) 4 MG/0.1ML nasal spray ondansetron (ZOFRAN-ODT) 4 MG disintegrating tablet Take 1 Tablet (4 mg) by mouth every 8 hours as needed for Nausea. Phentermine HCl (ADIPEX-P) 37.5 MG tablet Take 0.5 Tablets (18.75 mg) by mouth daily before breakfast. Patient states she's taking 1/2 tablet (18.75 mg) right now with plan to increase to 1 full tablet (37.5 mg) QUEtiapine (SEROQUEL) 100 MG tablet Take 1 Tablet (100 mg) by mouth daily at bedtime. zolpidem tartrate (AMBIEN CR) 12.5 MG controlled release tablet Take 1 Tablet (12.5 mg) by mouth atbedtime as needed for Sleep. Thank you. This list represents the best possible medication history available at the time of note completion and should be used as a guide in reconciling home medications for hospital use. ? * Plan of Care - Leon Fischer RN - 04/28/2024 4:58 AM CDT [facility] Plan of Care Note Assessment: Safety, pain mgt, CIWA. Plan: Assess and intervene as needed. Subjective: The pain on my back is 9 Objective: Pt is alert & oriented x 4, lower back pain was managed with warm pack & norco was given, intervention was effective. On CIWA protocol with score of 8, provider was updated, symptoms mimic medication withdrawal & plan to monitor if symptoms subsides with home meds or persist after taking home med. Medicated for nausea with Zofran & was effective. Assist of 1 with walkerto bedside commode. She was bale to sleep in between cares. --- End of Report --- * Triage Assessment Note - Char Mandel RN - 04/27/2024 8:25 PM CDT Pt states drank too much today. States drank small bottle of vodka. States has not been taking medsfor 2 days due to babysitting son. Pt tremulous. Denies drinking everyday. Pt states needs her buspirone, fluoxetine, gabapentin, Seroquel. Pt states last drink this afternoon. Pt somewhat diaphoretic. Pt denies hx of withdrawal seizure. Pt also states has not eaten today. +nausea. documented in this encounter Administered Medications Inactive Administered Medications - up to 3 most recent administrations Medication Order MAR Action Action Date Dose Rate Site acetaminophen (TYLENOL) tablet 1,000 mg 1,000 mg, Oral, TID, First dose on Wed04/30/24 at 1400, Until Discontinued Given 05/02/2024 1:17 PM CDT 1,000 mg Given 05/02/2024 7:35 AM CDT 1,000 mg Given 05/01/2024 9:26 PM CDT 1,000 mg amitriptyline (ELAVIL) tablet 25 mg 25 mg, Oral, EVENING, First dose on Wed04/28/24 at 0300, Until Discontinued Given 05/02/2024 4:15 PM CDT 25 mg Given 05/01/2024 4:55 PM CDT 25 mg Given 04/30/2024 4:52 PM CDT 25 mg amLODIPine (NORVASC) tablet 10 mg 10 mg, Oral, DAILY, First dose (after last modification) on Wed04/28/24 at 0300, Until Discontinued Given 05/02/2024 7:36 AM CDT 10 mg Given 05/01/2024 7:58 AM CDT 10 mg Given 04/30/2024 9:44 AM CDT 10 mg baclofen (LIORESAL) tablet 10 mg 10 mg, Oral, TID, First dose (after last modification) on Wed04/28/24 at 0315, Until Discontinued Given 05/02/2024 1:17 PM CDT 10 mg Given 05/02/2024 7:36 AM CDT 10 mg Given 05/01/2024 9:27 PM CDT 10 mg busPIRone (BUSPAR) tablet 15 mg 15 mg, Oral, BID, First dose (after last modification) on Wed04/28/24 at 0800, Until Discontinued Given 05/02/2024 7:35 AM CDT 15 mg Given 05/01/2024 9:27 PM CDT 15 mg Given 05/01/2024 7:58 AM CDT 15 mg cefTRIAXone (ROCEPHIN) injection 2 g 2 g, Intravenous, ONCE, On Wed04/28/24 at 0115, For 1 dose, Dilute with 20 mL of normal saline and give slow IV push over 4-5 minutes , Indications: Pyelonephritis Given 04/28/2024 1:20 AM CDT 2 g cloNIDine (CATAPRES) tablet 0.1 mg 0.1 mg, Oral, Q4H PRN, Other, Give for SBP greater than 160 and/or DBP greater than 110. DO NOT GIVE if HR less than 70., Starting on Wed04/29/24 at 0924, Until Wed05/02/24 at 1919, Call practitioner for additional orders if elevated SBP or DBP and HR less than 70., Indications: Alcohol withdrawal associated hypertension cyclobenzaprine (FLEXERIL) tablet 10 mg 10 mg, Oral, TID PRN, Muscle Spasms, Starting on Wed04/28/24 at 0232, Until Wed05/02/24 at 1919 Given 05/02/2024 11:09 AM CDT 10 mg Given 05/01/2024 12:16 PM CDT 10 mg Given 05/01/2024 12:31 AM CDT 10 mg diazePAM (VALIUM) injection 2.5-10 mg 2.5-10 mg, Intravenous, Q30MIN PRN, Alcohol Withdrawal Symptoms, Starting on Wed04/29/24 at 0550, Until Wed04/30/24 at 0751, If patient has scheduled diazepam, use PRN dose if it is more than 1 hour until next scheduled dose; if it's within 1 hour of next scheduled dose give scheduled dose early. Give oral/enteral dose if able; give IV dose if unable to give oral/enteral dose. Rate of IV push: do not exceed 5mg/min in adults or 1-2mg/min in children Dosing Guidelines: *CIWA-Ar score 0-4: No diazepam dosing indicated. Reassess CIWA-Ar score in 8 hours. If symptoms arise/worsen during this 8 hour period check CIWA-Ar. If CIWA-Ar is 5 or greater, initiate medication as score indicates. *CIWA-Ar score 5-9: give diazepam 2.5 mg. If CIWA-Ar score stays the same or increases in 10 minutes, give additional diazepam 2.5 mg x 1 and then reassess CIWA-Ar score in 4 hours. *CIWA-Ar score 10-15: give diazepam 5 mg. If CIWA-Ar score stays the same or increases in 10 minutes, give additional diazepam 5 mg x 1 and then reassess CIWA-Ar score in 1 hour. *CIWA-Ar score 16 or greater: give diazepam 10 mg. If CIWA-Ar score stays the same or increases in 10 minutes, give additional diazepam 5 mg x 1 and then reassess CIWA-Ar score in 30 minutes. *If CIWA-Ar score 16 or greater x 3 after dosing with benzodiazepines: contact Practitioner to transfer to ICU/Critical Care team. If escalating CIWA-Ar symptoms/score or patient condition declining within reassessment window, review MAR for adjunct medication orders (e.g. haloperidol or clonidine) or contact Practitioner for one-time orders or permission to advance to next level before the scheduled time., Indications: alcohol withdrawal Given 04/29/2024 6:01 AM CDT 5 mg dicyclomine (BENTYL) capsule 10 mg 10 mg, Oral, QID, First dose on Wed05/02/24 at 1030, Until Discontinued Given 05/02/2024 4:18 PM CDT 10 mg Given 05/02/2024 11:15 AM CDT 10 mg droPERidol (INAPSINE) injection 2.5 mg 2.5 mg, Intravenous, ONCE, On Melissa 04/27/24 at 2145, For 1 dose, Administer via slow IV push Given 04/27/2024 9:3 2 PM CDT 2.5 mg FLUoxetine (PROZAC) capsule 60 mg 60 mg, Oral, DAILY, First dose on Wed04/28/24 at 1045, Until Discontinued Given 05/02/2024 7:35 AM CDT 60 mg Given 05/01/2024 7:58 AM CDT 60 mg Given 04/30/2024 9:44 AM CDT 60 mg gabapentin (NEURONTIN) capsule 800 mg 800 mg, Oral, QID, First dose (after last modification) on Wed04/28/24 at 0800, Until Discontinued Given 05/02/2024 4:15 PM CDT 800 mg Given 05/02/2024 11:09 AM CDT 800 mg Given 05/02/2024 7:35 AM CDT 800 mg HYDROcodone-acetaminophen (NORCO) 5-325 MG per tablet 1 Tablet 1 Tablet, Oral, TID PRN, Pain, Starting on Wed04/28/24 at 0232, Until Wed05/02/24 at 191 Given 05/02/2024 2:44 PM CDT 1 Tablet Given 05/02/2024 6:19 AM CDT 1 Tablet Given 05/01/2024 9:35 PM CDT 1 Tablet hydrOXYzine pamoate (VISTARIL) capsule 25-50 mg 25-50 mg, Oral, Q6H PRN, Pain, Anxiety, Nausea/Vomiting, Starting on Wed04/30/24 at 0755, Until Wed05/02/24 at 1919 Given 05/02/2024 4:14 PM CDT 50 mg Given 05/02/2024 7:34 AM CDT 50 mg Given 05/01/2024 4:55 PM CDT 50 mg lactated ringers IV bolus 1,000 mL 1,000 mL, Intravenous, Administer over 1 Hours, ONCE, On Wed04/28/24 at 1415, For 1 dose Started 04/28/2024 4:31 PM CDT 1,000 mL lidocaine (ASPERCREAM) 4 % patch 1 Patch 1 Patch, Transdermal, DAILY, First dose on Wed05/02/24 at 1030, Until Discontinued, Apply patch to left abdomen. Patch may remain in place for up to 12 hours in any 24 hour period, i.e. patches placed at 0800 should be removed at 2000. May cut patch to appropriate size. Patch Applied 05/02/2024 11:10 AM CDT 1 Patch Abdomen magnesium sulfate 1 g in dextrose 5% 100 mL premade IVPB 1 g, Intravenous, Administer over 60 Minutes, ONCE, On Wed04/29/24 at 1845, For 1 dose Started 04/29/2024 9:49 PM CDT 1 g magnesium sulfate 2 g in water 50 mL premade IVPB 2 g, Intravenous, Administer over 30 Minutes, ONCE, On Melissa 04/27/24 at 2245, For 1 dose Started 04/27/2024 10:30 PM CDT 2 g melatonin tablet 6 mg 6 mg, Oral, HS PRN, Sedation, Starting on Wed04/28/24 at 0232, Until Wed05/02/24 at 191 Given 05/01/2024 12:31 AM CDT 6 mg Given 04/30/2024 1:11 AM CDT 6 mg metoclopramide (REGLAN) injection 5 mg 5 mg, Intravenous, Q6H PRN, Nausea, Vomiting, Starting on Wed04/28/24 at 0232, Until Wed05/02/24 at 191, Give 1st line medications, then 2nd line, then 3rd line. Progress to next line if medication is ineffective after 15 minutes, or has been previously ineffective, or if a medication for a line is not ordered. May use medication from any line if patient preference indicates. If 3rd line agent is ineffective, call Practitioner. If unable to give IV medications contact Practitioner. Aromatherapy may be used at any time as adjunct therapy. 1st Line - ondansetron (give ondansetron ODT (oral) if able to take oral, otherwise give IV) 2nd Line -prochlorperazine 3rd Line - metoclopramide Given 05/01/2024 4:59 PM CDT 5 mg Given 04/28/2024 11:38 PM CDT 5 mg ondansetron (ZOFRAN) injection 4 mg 4 mg, Intravenous, Q6H PRN, Nausea, Vomiting, Other, If unable to take ODT ondansetron, Starting on Wed04/28/24 at 0232, Until Wed05/02/24 at 1919, Give 1st line medications, then 2nd line, then 3rd line. Progress to next line if medication is ineffective after 15 minutes, or has been previously ineffective, or if a medication for a line is not ordered. May use medication from any line if patient preference indicates. If 3rd line agent is ineffective, call Practitioner. If unable to give IV medications contact Practitioner. Aromatherapy may be used at any time as adjunct therapy. 1st line: ondansetron (give ondansetron ODT (oral) if able to take oral, otherwise give IV) 2nd line: prochlorperazine 3rd line: metoclopramide Given 04/29/2024 5:14 AM CDT 4 mg Given 04/28/2024 8:42 PM CDT 4 mg Given 04/28/2024 1:18 PM CDT 4 mg ondansetron (ZOFRAN-ODT) disintegrating tablet 4 mg 4 mg, Oral, ONCE, On Melissa 04/27/24 at 2115, For 1 dose, Do not swallow tablet whole. Allow to dissolve on the tongue without chewing. Given 04/27/2024 9:31 PM CDT 4 mg ondansetron (ZOFRAN-ODT) disintegrating tablet 4 mg 4 mg, Oral, Q6H PRN, Vomiting, Nausea, Starting on Wed04/28/24 at 0232, Until Wed05/02/24 at 1919, Give 1st line medications, then 2nd line, then 3rd line. Progress to next line if medication is ineffective after 15 minutes, or has been previously ineffective, or if a medication for a line is not ordered. May use medication from any line if patient preference indicates. If 3rd line agent is ineffective, call Practitioner. If unable to give IV medications contact Practitioner. Aromatherapy may be used at any time as adjunct therapy. 1st line: ondansetron (give ondansetron ODT (oral) if able to take oral, otherwise give IV) 2nd line: prochlorperazine 3rd line: metoclopramide Given 05/02/2024 11:14 AM CDT 4 mg Given 05/01/2024 9:35 PM CDT 4 mg Given 05/01/2024 10:45 AM CDT 4 mg pantoprazole (PROTONIX IV) 40 mg in sodium chloride 0.9% 10 mL IV push 40 mg, Intravenous, Administer over 2 Minutes, DAILY, First dose on Wed04/30/24 at 1300, Add 10 mL of 0.9% sodium chloride to 40 mg vial of pantoprazole for a final concentration of 4 mg/mL Give IV push over 2 minutes OR infuse over 10 minutes via a syringe pump. Given 05/02/2024 7:37 AM CDT 40 mg Given 05/01/2024 7:58 AM CDT 40 mg Given 04/30/2024 1:22 PM CDT [address] (PROTONIX) tablet 40 mg 40 mg, Oral, DAILY AT 0600, First dose on Wed05/03/24 at 0600, Until Discontinued, Tablet should be swallowed whole. Best when taken before a meal, but may be taken with food. prochlorperazine (COMPAZINE) injection 5 mg 5 mg, Intravenous, Q6H PRN, Nausea, Vomiting, Starting on Wed04/28/24 at 0232, Until Wed05/02/24 at 1919, Give 1st line medications, then 2nd line, then 3rd line. Progress to next line if medication is ineffective after 15 minutes, or has been previously ineffective, or if a medication for a line is not ordered. May use medication from any line if patient preference indicates. If 3rd line agent is ineffective, call Practitioner. If unable to give IV medications contact Practitioner. Aromatherapy may be used at any time as adjunct therapy. 1st Line - ondansetron (give ondansetron ODT (oral) if able to take oral, otherwise give IV) 2nd Line -prochlorperazine 3rd Line - metoclopramide Given 05/01/2024 12:16 PM CDT 5 mg Given 04/29/2024 3:04 PM CDT 5 mg Given 04/28/2024 6:21 PM CDT 5 mg QUEtiapine (SEROquel) tablet 100 mg 100 mg, Oral, HS, First dose (after last modification) on Wed04/28/24 at 0300, Until Discontinued Given 05/01/2024 9:27 PM CDT 100 mg Given 04/30/2024 8:47 PM CDT 100 mg Given 04/29/2024 9:47 PM CDT 100 mg senna (SENOKOT) tablet 2 Tablet 2 Tablet, Oral, BID, First dose on Wed04/29/24 at 0945, Until Discontinued, as laxative/stimulant agent Hold if loose stools. Given 05/02/2024 7:35 AM CDT 2 Tablets Given 05/01/2024 9:27 PM CDT 2 Tablets Given 05/01/2024 7:58 AM CDT 2 Tablets simethicone (MYLICON) chewable tablet 160 mg 160 mg, Oral, TID, First dose on Wed05/02/24 at 1030, Until Discontinued Given 05/02/2024 11:15 AM CDT 160 mg sodium chloride 0.9% bolus 1,000 mL 1,000 mL, Intravenous, Administer over 1 Hours, ONCE, On Melissa 04/27/24 at 2100, For 1 dose Started 04/27/2024 9:25 PM CDT 1,000 mL sodium chloride 0.9% bolus 1,000 mL 1,000 mL, Intravenous, Administer over 1 Hours, ONCE, On Wed04/28/24 at 0115, For 1 dose Started 04/28/2024 1:20 AM CDT 1,000 mL sodium chloride 0.9% infusion Intravenous, at 75 mL/hr, CONTINUOUS, Starting on 04/29/24 at 1845 Started 04/29/2024 9:49 PM CDT 75 mL/hr thiamine (VITAMIN B-1) 100 mg in sodium chloride 0.9 % 50 mL IVPB 100 mg, Intravenous, Administer over 30 Minutes, ONCE, On Wed04/28/24 at 0300, For 1 dose Started 04/28/2024 3:40 AM CDT 100 mg thiamine (VITAMIN B-1) tablet 100 mg 100 mg, Oral, DAILY, First dose on Wed04/29/24 at 0800, Until Discontinued Given 05/02/2024 7:35 AM CDT 100 mg Given 05/01/2024 7:58 AM CDT 100 mg Given 04/30/2024 9:44 AM CDT 100 mg documented in this encounter Active and Recently Administered Medications Times are shown in CDT. Scheduled Medication Order 04/30/2024 05/01/2024 05/02/2024 acetaminophen (TYLENOL) tablet 1,000 mg 1,000 mg, Oral, TID, First dose on Wed04/30/24 at 1400, Until Discontinued 1323 (Given - Provider: Fatemeh Torres RN)2031 (Not Given - Provider: Raisa Joshua RN - Reason: Patient/family refused) 0758 (Given - Provider: Tami Grijalva RN)1350 (Given - Provider: Tami Grijalva RN)2126 (Given - Provider: Prosper Castellanos RN) 0735 (Given - Provider: Tami Grijalva RN)1317 (Given - Provider: Tami Grijalva RN) amitriptyline (ELAVIL) tablet 25 mg 25 mg, Oral, EVENING, First dose on Wed04/28/24 at 0300, Until Discontinued 165 (Given - Provider: Fatemeh Torres RN) 165 (Given - Provider: Tami Grijalva RN) 1615 (Given - Provider: Tami Grijalva RN) amLODIPine (NORVASC) tablet 10 mg 10 mg, Oral, DAILY, First dose (after last modification) on Wed04/28/24 at 0300, Until Discontinued 0944 (Given - Provider: Fatemeh Torres RN) 075 (Given - Provider: Tami Grijalva RN) 0736 (Given - Provider: Tami Grijalva RN) baclofen (LIORESAL) tablet 10 mg 10 mg, Oral, TID, First dose (after last modification) on Wed04/28/24 at 0315, Until Discontinued 0945 (Given - Provider: Fatemeh Torres RN)1323 (Given - Provider: Fatemeh Torres RN)204 (Given - Provider: Raisa Joshua RN) 0758 (Given - Provider: Tami Grijalva RN)1350 (Given - Provider: Tami Grijalva RN)2127 (Given - Provider: Prosper Castellanos, JESSICA) 0736 (Given - Provider: Tami Grijalva RN)1317 (Given - Provider: Tami Grijalva RN) busPIRone (BUSPAR) tablet 15 mg 15 mg, Oral, BID, First dose (after last modification) on Wed04/28/24 at 0800, Until Discontinued 0944 (Given - Provider: Faetmeh Torres RN)204 (Given - Provider: Raisa Joshua RN) 0758 (Given - Provider: Tami Grijalva RN)2127 (Given - Provider: Prosper Castellanos, JESSICA) 0735 (Given - Provider: Tami Grijalva RN) dicyclomine (BENTYL) capsule 10 mg 10 mg, Oral, QID, First dose on Wed05/02/24 at 1030, Until Discontinued 1115 (Given - Provider: Tami Grijalva RN)1618 (Given - Provider: Tami Grijalva RN) FLUoxetine (PROZAC) capsule 60 mg 60 mg, Oral, DAILY, First dose on Wed04/28/24 at 1045, Until Discontinued 0944 (Given - Provider: Fatemeh Torres RN) 0758 (Given - Provider: Tami Grijalva RN) 0735 (Given - Provider: Tami Grijalva RN) gabapentin (NEURONTIN) capsule 800 mg 800 mg, Oral, QID, First dose (after last modification) on Wed04/28/24 at 0800, Until Discontinued 0944 (Given - Provider: Fatemeh Torres RN)1322 (Given - Provider: Fatemeh Torres RN)1651 (Given - Provider: Fatemeh Torres RN)2047 (Given - Provider: Raisa Joshua RN) 0758 (Given - Provider: Tami Grijalva RN)1216 (Given - Provider: Tami Grijalva RN)1654 (Given - Provider: Tami Grijalva RN)2127 (Given - Provider: Prosper Castellanos RN) 0735 (Given - Provider: Tami Grijalva RN)1109 (Given - Provider: Tami Grijalva RN)1615 (Given - Provider: Tami Grijalva RN) lidocaine (ASPERCREAM) 4 % patch 1 Patch 1 Patch, Transdermal, DAILY, First dose on Wed05/02/24 at 1030, Until Discontinued, Apply patch to left abdomen. Patch may remain in place for up to 12 hours in any 24 hour period, i.e. patches placed at 0800 should be removed at 2000. May cut patch to appropriate size. 1110 (Patch Applied - Provider: Tami Grijalva RN)2310 (Due: Patch Removed - Provider: Tami Grijalva RN) pantoprazole (PROTONIX IV) 40 mg in sodium chloride 0.9% 10 mL IV push (CANCELED) 40 mg, Intravenous, Administer over 2 Minutes, DAILY, First dose on Wed04/30/24 at 1300, Add 10 mL of 0.9% sodium chloride to 40 mg vial of pantoprazole for a final concentration of 4 mg/mL Give IV push over 2 minutes OR infuse over 10 minutes via a syringe pump. 1322 (Given - Provider: Fatemeh Torres RN) 0758 (Given - Provider: Tami Grijalva RN) 0737 (Given - Provider: Tami Grijalva RN) pantoprazole DR (PROTONIX) tablet 40 mg 40 mg, Oral, DAILY AT 0600, First dose on Wed05/03/24 at 0600, Until Discontinued, Tablet should be swallowed whole. Best when taken before a meal, but may be taken with food. QUEtiapine (SEROquel) tablet 100 mg 100 mg, Oral, HS, First dose (after last modification) on Wed04/28/24 at 0300, Until Discontinued 2046 (Given - Provider: Raisa Joshua RN) 2126 (Given - Provider: Prosper Castellanos, JESSICA) senna (SENOKOT) tablet 2 Tablet 2 Tablet, Oral, BID, First dose on Wed04/29/24 at 0945, Until Discontinued, as laxative/stimulant agent Hold if loose stools. 0947 (Not Given - Provider: Fatemeh Torres RN - Reason: Order parameters not [phone] (Not Given - Provider: Raisa Joshua RN - Reason: Patient/family refused) 075 (Given - Provider: Tami Grijalva RN)[phone] (Given - Provider: Prosper Castellanos RN) 0735 (Given - Provider: Tami Grijalva RN) simethicone (MYLICON) chewable tablet 160 mg 160 mg, Oral, TID, First dose on Wed05/02/24 at 1030, Until Discontinued 1115 (Given - Provider: Tami Grijalva RN) thiamine (VITAMIN B-1) tablet 100 mg(Linked Group 1) 100 mg, Oral, DAILY, First dose on Wed04/29/24 at 0800, Until Discontinued 0944 (Given - Provider: Fatemeh Torres RN) 075 (Given - Provider: Tami Grijalva RN) 0735 (Given - Provider: Tami Grijalva RN) PRN Medication Order 04/30/2024 05/01/2024 05/02/2024 benzocaine-menthol (Chloraseptic) lozenge 1 Lozenge 1 Lozenge, Oral, Q2H PRN, Throat Pain, Cough, Starting on Wed04/28/24 at 0232, Until Wed05/02/24 at 1918 calcium carbonate (TUMS) chewable tablet 1,000 mg 1,000 mg, Oral, Q4H PRN, Heartburn, Upset Stomach, Starting on Wed04/28/24 at 0232, Until Wed05/02/24 at 1918, For indigestion/upset stomach carboxymethylcellulose PF (REFRESHPLUS) 0.5 % eye drops 1 Drop 1 Drop, Both Eyes, Q1H PRN, Dry Eyes, Itchy Eyes, Starting on Wed04/28/24 at 0232, Until Wed05/02/24 at 1918 cloNIDine (CATAPRES) tablet 0.1 mg 0.1 mg, Oral, Q4H PRN, Other, Give for SBP greater than 160 and/or DBP greater than 110. DO NOT GIVE if HR less than 70., Starting on Wed04/29/24 at 0924, Until Wed05/02/24 at 1918, Call practitioner for additional orders if elevated SBP or DBP and HR less than 70., Indications: Alcohol withdrawal associated hypertension cyclobenzaprine (FLEXERIL) tablet 10 mg 10 mg, Oral, TID PRN, Muscle Spasms, Starting on Wed04/28/24 at 0232, Until Wed05/02/24 at 1918 0110 (Given - Provider: Raisa Joshua RN) 0031 (Given - Provider: Raisa Joshua RN)1216 (Given - Provider: Tami Grijalva RN) 1109 (Given - Provider: Tami Grijalva RN) HYDROcodone-acetaminophen (NORCO) 5-325 MG per tablet 1 Tablet 1 Tablet, Oral, TID PRN, Pain, Starting on Wed04/28/24 at 0232, Until Wed05/02/24 at 1918 0407 (Given - Provider: Raisa Joshua RN)1651 (Given - Provider: Fatemeh Torres RN)2046 (Given - Provider: Raisa Joshua RN) 0032 (Given - Provider: Raisa Joshua RN)1044 (Given - Provider: Tami Grijalva, JESSICA)2135 (Given - Provider: Prosper Castellanos, JESSICA) 0619 (Given - Provider: Prosper Castellanos RN)1444 (Given - Provider: Tami Grijalva RN) hydrOXYzine pamoate (VISTARIL) capsule 25-50 mg 25-50 mg, Oral, Q6H PRN, Pain, Anxiety, Nausea/Vomiting, Starting on Wed04/30/24 at 0755, Until Wed05/02/24 at 1919 0944 (Given - Provider: Fatemeh Torres RN)2045 (Given - Provider: Raisa Joshua RN) 0758 (Given - Provider: Tami Grijalva RN)1655 (Given - Provider: Tami Grijalva RN) 0734 (Given - Provider: Tami Grijalva RN)1614 (Given - Provider: Tami Grijalva RN) melatonin tablet 6 mg 6 mg, Oral, HS PRN, Sedation, Starting on Wed04/28/24 at 0232, Until Wed05/02/24 at 1919 0111 (Given - Provider: Raisa Joshua RN) 0031 (Given - Provider: Raisa Joshua RN) metoclopramide (REGLAN) injection 5 mg(Linked Group 2) 5 mg, Intravenous, Q6H PRN, Nausea, Vomiting, Starting on Wed04/28/24 at 0232, Until Wed05/02/24 at 1919, Give 1st line medications, then 2nd line, then 3rd line. Progress to next line if medication is ineffective after 15 minutes, or has been previously ineffective, or if a medication for a line is not ordered. May use medication from any line if patient preference indicates. If 3rd line agent is ineffective, call Practitioner. If unable to give IV medications contact Practitioner. Aromatherapy may be used at any time as adjunct therapy. 1st Line - ondansetron (give ondansetron ODT (oral) if able to take oral, otherwise give IV) 2nd Line -prochlorperazine 3rd Line - metoclopramide 1658 (Given - Provider: Tami Grijalva RN) nystatin (MYCOSTATIN) 496997 UNIT/GM topical powder Topical, BID PRN, Other, for rash due to yeast, Starting on Wed04/28/24 at 023, Apply topically to affected area. Hazardous waste disposal required. ondansetron (ZOFRAN) injection 4 mg(Linked Group 2) 4 mg, Intravenous, Q6H PRN, Nausea, Vomiting, Other, If unable to take ODT ondansetron, Starting on Wed04/28/24 at 0232, Until Wed05/02/24 at 191, Give 1st line medications, then 2nd line, then 3rd line. Progress to next line if medication is ineffective after 15 minutes, or has been previously ineffective, or if a medication for a line is not ordered. May use medication from any line if patient preference indicates. If 3rd line agent is ineffective, call Practitioner. If unable to give IV medications contact Practitioner. Aromatherapy may be used at any time as adjunct therapy. 1st line: ondansetron (give ondansetron ODT (oral) if able to take oral, otherwise give IV) 2nd line: prochlorperazine 3rd line: metoclopramide ondansetron (ZOFRAN-ODT) disintegrating tablet 4 mg(Linked Group 2) 4 mg, Oral, Q6H PRN, Vomiting, Nausea, Starting on Wed04/28/24 at 0232, Until Wed05/02/24 at 191, Give 1st line medications, then 2nd line, then 3rd line. Progress to next line if medication is ineffective after 15 minutes, or has been previously ineffective, or if a medication for a line is not ordered. May use medication from any line if patient preference indicates. If 3rd line agent is ineffective, call Practitioner. If unable to give IV medications contact Practitioner. Aromatherapy may be used at any time as adjunct therapy. 1st line: ondansetron (give ondansetron ODT (oral) if able to take oral, otherwise give IV) 2nd line: prochlorperazine 3rd line: metoclopramide 1045 (Given - Provider: Tami Grijalva RN)2135 (Given - Provider: Prosper Castellanos RN) 1114 (Given - Provider: Tami Grijalva RN) prochlorperazine (COMPAZINE) injection 5 mg(Linked Group 2) 5 mg, Intravenous, Q6H PRN, Nausea, Vomiting, Starting on Wed04/28/24 at 0232, Until Wed05/02/24 at 1918, Give 1st line medications, then 2nd line, then 3rd line. Progress to next line if medication is ineffective after 15 minutes, or has been previously ineffective, or if a medication for a line is not ordered. May use medication from any line if patient preference indicates. If 3rd line agent is ineffective, call Practitioner. If unable to give IV medications contact Practitioner. Aromatherapy may be used at any time as adjunct therapy. 1st Line - ondansetron (give ondansetron ODT (oral) if able to take oral, otherwise give IV) 2nd Line -prochlorperazine 3rd Line - metoclopramide 1216 (Given - Provider: Tami Grijalva RN) sodium chloride (OCEAN) 0.65 % nasal solution 1 [place] 1 [place], Both Nostrils, Q2H PRN, Dry Nose, Starting on Wed04/28/24 at 0232, Until Wed05/02/24 at 1918 Linked Groups Order Group 1: thiamine (VITAMIN B-1) 100 mg in sodium chloride 0.9 % 50 mL IVPB (COMPLETED) 100 mg, Intravenous, Administer over 30 Minutes, ONCE, On Wed04/28/24 at 0300, For 1 dose Followed by thiamine (VITAMIN B-1) tablet 100 mgJump to med 100 mg, Oral, DAILY, First dose on Wed04/29/24 at 0800, Until Discontinued Group 2: ondansetron (ZOFRAN-ODT) disintegrating tablet 4 mgJump to med 4 mg, Oral, Q6H PRN, Vomiting, Nausea, Starting on Wed04/28/24 at 0232, Until Wed05/02/24 at 191, Give 1st line medications, then 2nd line, then 3rd line. Progress to next line if medication is ineffective after 15 minutes, or has been previously ineffective, or if a medication for a line is not ordered. May use medication from any line if patient preference indicates. If 3rd line agent is ineffective, call Practitioner. If unable to give IV medications contact Practitioner. Aromatherapy may be used at any time as adjunct therapy. 1st line: ondansetron (give ondansetron ODT (oral) if able to take oral, otherwise give IV) 2nd line: prochlorperazine 3rd line: metoclopramide And ondansetron (ZOFRAN) injection 4 mgJump to med 4 mg, Intravenous, Q6H PRN, Nausea, Vomiting, Other, If unable to take ODT ondansetron, Starting on Wed04/28/24 at 0232, Until Wed05/02/24 at 191, Give 1st line medications, then 2nd line, then 3rd line. Progress to next line if medication is ineffective after 15 minutes, or has been previously ineffective, or if a medication for a line is not ordered. May use medication from any line if patient preference indicates. If 3rd line agent is ineffective, call Practitioner. If unable to give IV medications contact Practitioner. Aromatherapy may be used at any time as adjunct therapy. 1st line: ondansetron (give ondansetron ODT (oral) if able to take oral, otherwise give IV) 2nd line: prochlorperazine 3rd line: metoclopramide And prochlorperazine (COMPAZINE) injection 5 mgJump to med 5 mg, Intravenous, Q6H PRN, Nausea, Vomiting, Starting on Wed04/28/24 at 0232, Until Wed05/02/24 at 191, Give 1st line medications, then 2nd line, then 3rd line. Progress to next line if medication is ineffective after 15 minutes, or has been previously ineffective, or if a medication for a line is not ordered. May use medication from any line if patient preference indicates. If 3rd line agent is ineffective, call Practitioner. If unable to give IV medications contact Practitioner. Aromatherapy may be used at any time as adjunct therapy. 1st Line - ondansetron (give ondansetron ODT (oral) if able to take oral, otherwise give IV) 2nd Line -prochlorperazine 3rd Line - metoclopramide And metoclopramide (REGLAN) injection 5 mgJump to med 5 mg, Intravenous, Q6H PRN, Nausea, Vomiting, Starting on Wed04/28/24 at 0232, Until Wed05/02/24 at 191, Give 1st line medications, then 2nd line, then 3rd line. Progress to next line if medication is ineffective after 15 minutes, or has been previously ineffective, or if a medication for a line is not ordered. May use medication from any line if patient preference indicates. If 3rd line agent is ineffective, call Practitioner. If unable to give IV medications contact Practitioner. Aromatherapy may be used at any time as adjunct therapy. 1st Line - ondansetron (give ondansetron ODT (oral) if able to take oral, otherwise give IV) 2nd Line -prochlorperazine 3rd Line - metoclopramide documented in this encounter Care Teams [facility] Relationship Specialty Start Date End Date No Primary/Referring, Phy PCP - General 04/28/24 documented as of this encounter
--- OUTSIDE RECORDS SUMMARY | 2024-05-23 15:01 | XMS_ITS | Clinical Summary ---
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 12:47 [facility] Leukocyte Esterase, Urine (Mandi/uL) 500 (Large)(A) Negative, 25 (Trace) 04/28/2024 12:47 [facility] Red Blood Cells 6(H) 0 - 3 /HPF 04/28/2024 12:47 [facility] White Blood Cells 34(H) 0 - 5 /HPF 04/28/2024 12:47 [facility] Bacteria Few(A) None Seen /HPF 04/28/2024 12:47 [facility] Squamous Epithelial Cells Occasional None Seen, Occasional, Few /HPF 04/28/2024 12:47 [facility] Mucus Present(A) None Seen /HPF 04/28/2024 12:47 [facility] Urine Source Clean Catch 04/28/2024 12:47 AM [facility] Urine URINE SPECIMEN COLLECTION, CLEAN CATCH / Unknown Non-blood Collection / Unknown 04/27/2024 11:35 PM CDT 04/27/2024 11:42 PM CDT [facility] - 04/28/2024 12:47 AM CDT The qualitative interpretive guidance provided (e.g., small, moderate, large) is intended to aid in quantitative result interpretation. It is not itself an FDA-cleared test result. Khurram Graham PA-C LAB_1 [facility] [address] [place] [address], [facility] * XR Chest 1 View (04/27/2024 10:37 PM CDT) Anatomical Region Laterality Modality Chest, Lung Computed Radiogr aphy 04/27/2024 10:3 7 PM CDT Narrative 04/27/2024 10:48 PM CDT EXAM: XR CHEST 1 VIEW LOCATION: [facility] DATE: 04/27/2024 INDICATION: Cp, PAIN COMPARISON: 04/01/2019 IMPRESSION: Heart size and pulmonary vascularity normal. The lungs are clear. Old left eighth rib fracture. Right cervical rib. Procedure Note Jesus Sheets MD - 04/27/2024 EXAM: XR CHEST 1 VIEW LOCATION: [facility] DATE: 04/27/2024 INDICATION: Cp, PAIN COMPARISON: 04/01/2019 IMPRESSION: Heart size and pulmonary vascularity normal. The lungs areclear. Old left eighth rib fracture. Right cervical rib. Khurram Graham PA-C RAD GD * Alcohol (ethyl) Level (04/27/2024 9:36 PM CDT) Ethyl Alcohol <0.01 <=0.01 g/dL 04/27/2024 10:07 PM CDT [facility] Blood Venipuncture / Unknown 04/27/2024 9:36 PM CDT 04/27/2024 9:38 PM CDT [facility] - 04/27/2024 10:07 PM CDT For medical purposes only; not valid for forensic, legal, or employment use. Donnie Felix MD LAB_1 Performing Organization Address [facility] Co de Phone Number [address] * ECG 12-LEAD ROUTINE (04/27/2024 8:43 PM CDT) Ventricular Rate 109 BPM [facility]USE [facility] Atrial Rate 109 BPM [facility]USE [facility] P-R Interval 138 ms MUSE [facility] QRS Duration 74 ms MUSE GHP QT 332 ms MUSE GHP QTc 447 ms MUSE GHP P [place] 80 degrees MUSE GHP R [place] 23 degrees MUSE GHP T [place] 48 degrees MUSE GHP 04/27/2024 8:43 PM CDT Narrative [facility] - 04/28/2024 8:30 AM CDT Poor data quality, interpretation may be adversely affected Sinus tachycardia Nonspecific ST abnormality Abnormal ECG When compared with ECG of 21-MAY-2020 18:41, No significant change was found Confirmed by Shaquille Lanier ([id number]) on 04/28/2024 8:30:17 AM Procedure Note Shaquille Lanier MD - 04/28/2024 Poor data quality, interpretation may be adversely affected Sinus tachycardia Nonspecific ST abnormality Abnormal ECG When compared with ECG of 21-MAY-2020 18:41, No significant change was found Confirmed by Shaquille Lanier ([id number]) on 04/28/2024 8:30:17 AM Lety Alvarez MD EKG Performing Organization Address [facility] Co de Phone Number [facility] [address] [place] [address] * Lipid Panel and Direct LDL(If Needed) (01/08/2021 5:09 PM CDT) Cholesterol 195 0 - 199 mg/dL 01/08/2021 7:38 PM CDT [facility] Triglyceride 118 <=149 mg/dL 01/08/2021 7:38 PM CDT [facility] HDL Cholesterol 53 >=40 mg/dL 7:38 PM CDT [facility] LDL, Calculated 118 <130 mg/dL 7:38 PM CDT [facility] Non HDL Chol, Calculated 142 mg/dL 01/08/2021 7:38 PM CDT [facility] Cholesterol/HDL Ratio 3.7 01/08/2021 7:38 PM CDT [facility] Hours Fasting 5 01/08/2021 7:38 PM CDT [facility] Blood Venipuncture / Unknown 01/08/2021 5:09 PM CDT 01/08/2021 5:10 PM CDT Ayala Benites DO LAB_1 [facility] [address] [place] [address], [facility] [phone] [facility] [address] [place] [address], [facility] [phone] * (ABNORMAL) MM Mammogram Screening Bilat W CAD (10/16/2020 1:59 PM LOCKSTITCH HEMMER) Anatomical Region Laterality Modality Breast Bilateral Mammography Impressions 10/17/2020 8:52 AM LOCKSTITCH HEMMER : ACR BI-RADS Category 0: Need Additional Imaging Evaluation RECOMMENDATION: Additional Mammographic Images and Possible Ultrasound The results and recommendations of this examination will be communicated to the patient and the imaging center will attempt to schedule any recommended follow up with the patient. Narrative 10/17/2020 8:52 AM LOCKSTITCH HEMMER MM MAMMOGRAM SCREENING BILAT W CAD performed on 10/16/20 No comparisons were made when reading this study. ??Baseline. FINDINGS: Bilateral screening mammogram was performed with the assistance of Computer-Aided Detection . The breasts have scattered areas of fibroglandular density. There is an asymmetry in the right breast at the 10 o'clock position at middle depth. The remainder of the breast tissue is unremarkable. Ayala Benites DO RAD JASMIN * (ABNORMAL) FIT Colon Rectal Cancer Screening (08/23/2020 8:00 AM LOCKSTITCH HEMMER) FIT Specimen 1 Positive( A) Negative 08/26/2020 10:04 AM [facility]ST[facility] H[facility] Stool 08/23/2020 8:00 AM LOCKSTITCH HEMMER 08/23/2020 4:28 PM LOCKSTITCH HEMMER Ayala Benites DO LAB_1 [facility] [address] [address], [facility] [phone] from Last 3 Months or Most Recently Relevant to Health Maintenance Advance Directives * Full Code (Latest Code Status on File) Date Activated Date Inactivated Comments 04/28/2024 2:32 AM 05/02/2024 7:19 PM * Full Code Date Activated Date Inactivated Comments 10/24/2020 2:57 PM 10/26/2020 4:10 PM * Full Code Date Activated Date Inactivated Comments 05/23/2020 1:58 PM 05/25/2020 3:04 PM * Full Code Date Activated Date Inactivated Comments 09/01/2018 1:28 PM 09/04/2018 2:27 PM Care Teams Portrait Photographer Relationship Specialty Start Date End Date No Primary/Referring, Phy PCP - General 04/28/24
--- OUTSIDE RECORDS SUMMARY | 2024-05-23 15:02 | XMS_ITS | Encounter Summary ---
Author Organization [facility] Address [address], [place] [address] Care Team Providers Care Piling Setter Name Role Phone Unavailable Primary Care Provider Unavailabl e Reason for Visit * Reason Onset Date Comments Refill 04/10/2024 FLUoxetine (PROZ AC) 20 MG capsule Encounter Details Date Type Department Care Team (Late st Contact Info) Description 04/10/2024 Refill [facility] [address] [facility] [place] [address] Brice Al, WEBSPHERE ADMINISTRATOR, FIRE LOSS PREVENTION ENGINEER [address] [place] [address] Refill (FLUoxetine (PROZAC) 20 MG capsule ) Social History Tobacco Use Types Packs/Day Years Used Date Smoking Tobacco: Never Smokeless Tobacco: Never Alcohol Use Standard Drinks/Week Comments Not Currently 0 (1 standard drink = 0.6 oz pure alcohol) Quit 1.5 months ago. Was drinking a 6 pack and a shot at a time. Sex and Gender Information Value Date Recorded Sex Assigned at Not on file Gender Identity Not on file Sexual Orientation Not on file documented as of this encounter Nursing Notes * Isis Mendoza RN - 04/14/2024 8:08 AM CDT RN will deny per message below * Destiny Wellington - 04/12/2024 12:01 PM CDT Medication Refill - Due for Visit Medication still pending, patient is due to be seen in the next 30 days. Called patient, was: Successful in reaching patient. We recently received a refill request for one of your medications. To continue managing your medication refills, your clinician would like to see you for a(n): Patient is due for a: Video/Office Visit Patient declined to schedule due to: Patient no longer receiving care within organization. Frontline Action: Remove pended medication and Sign Visit or if unable, route as low priority to Refill bus driver. * Macie Rizvi - 04/12/2024 11:26 AM CDT Medication Refill - Due for Visit Medication still pending, patient is due to be seen in the next 30 days. Called patient, was: unable to reach patient. 1st call attempted. Left message to call back. Scheduling Action: Patient needs to schedule an appointment in the next 30 days. If able to schedule, please document date of appointment and route to clinician/pool identified in nursing documentation below. * Tiffany Valerio RN - 04/12/2024 8:29 AM CDT Further Assistance Needed on Refill from [facility] Nurse Practitioner Patient is due for Qualifying Visit The most recent order on 03/17/2023. Last qualifying visit: 02/17/2023 (with BRICE AL) Medication is still pending. Patient is due for an Office/Video Visit in the next 30 days. Call Patient and document using .EVLINCOLN. After attempting to schedule patient: Please route to: Scheduling proivder Requested Prescriptions Pending Prescriptions Disp Refills FLUoxetine (PROZAC) 20 MG capsule 270 Capsule 0 Sig: Take 3 Capsules (60 mg) by mouth daily. * Kane Canales Xrwcomjustin - 04/10/2024 9:52 AM CDT FLUoxetine (PROZAC) 20 MG capsule Antidepressants -> The most recent order on 03/17/2023. -> An office visit is overdue (performed 14 months ago, required every 12 months). Last qualifying visit: 02/17/2023 (with BRICE AL) Next scheduled visit: None Last ordered by BRICE AL: 12/17/2022 (480 days ago) QTY: 270, Refills: 3, Sig: take 3 capsules (60 mg) by mouth daily. (unchanged) Age: 54 [employer] Embedded Refills, Reference: [id number], 04/10/2024 9:52:55 AM [facility] - Primary Care [[id number]] ([id number]) YT Sharee Saldaña CMA - 04/10/2024 9:51 AM CDT FLUoxetine (PROZAC) 20 MG capsule Last date filled: 08/23/23 Qty: 270 Si caps daily Sharee Nova CMA 04/10/2024, 9:51 AM documented in this encounter Plan of Treatment Not on file documented as of this encounter Visit Diagnoses Diagnosis Chronic anxiety (HRC) Anxiety state, unspecified documented in this encounter
--- OUTSIDE RECORDS SUMMARY | 2024-05-23 15:02 | XMS_ITS | Encounter Summary ---
Author Organization [facility] Address [address], [place] [address] Care Team Providers Care Seeing Eye Dog Teacher Name Role Phone Unavailable Primary Care Provider Unavailabl e Reason for Visit * Reason Onset Date Comments Refill 02/23/2024 ferrous sulfate 325 (65 Fe) MG tablet Encounter Details Date Type Department Care Team (Late st Contact Info) Description 02/23/2024 Refill [facility] [address] [place] [phone] Ayala Benites, [address] [place], [place] [id number] Refill (ferrous sulfate 325 (65 Fe) MG tablet) Social History Tobacco Use Types Packs/Day Years [...] as of this encounter Nursing Notes * Aleah Cantu RN - 02/24/2024 1:48 PM CDT Per 02/17/23 encounter, pt lives in [place] and gets her care there Will deny * Kane Canaleswcomm - 02/23/2024 9:54 AM CDT ferrous sulfate 325 (65 Fe) MG tablet Iron Supplements -> An office visit is overdue (performed over 12 months ago, required every 12 months). -> The ordering provider on the previous renewal is linked to a different protocol set. -> The ordering provider is not on a protocol set. -> Labs required if chronic use -> HCT and HGB are overdue (performed over 37 months ago, required every 12 months) Last qualifying visit: 02/17/2023 (with BRICE STAPLETON) Next scheduled visit: None Last ordered by BRICE STAPLETON: 12/17/2022 (433 days ago) QTY: 90, Refills: 3, Sig: take 1 tablet (325 mg) by mouth daily with breakfast. (changed but equivalent) HCT: 41.1 % on 02/03/2021 HGB: 12.6 g/dL on 02/03/2021 [facility] Embedded Refills, Reference: [id number], 02/23/2024 9:53:59 AM Adelina JIM[facility] - Primary Care [[id number]] ([id number]) * Kane Canales Xrwcomm - 02/23/2024 9:54 AM CDT The following lab order(s) may be associated with the Result Note below: COMPLETE BLOOD COUNT-W/DIFF Notes recorded by Ayala Benites DO on 02/06/2021 at 10:27 AM CDT See telephone encounter. Ayala Benites DO 02/06/2021, 10:27 AM ------ Notes recorded by Ayala Benites DO on 02/05/2021 at 4:01 PM CDT Blood work is all normal, which is great news. Urine culture is positive for bladder infection. Please finish the antibiotics and let me know if your symptoms do not improve. Please call patient with above information. Thanks. Ayala Benites DO 02/05/2021, 4:01 PM * Trisha Fox - 02/23/2024 9:53 AM CDT ferrous sulfate 325 (65 Fe) MG tablet LAST FILL: 09/14/2023 QTY: 90 SI tablet by mouth daily Trisha Fox CMA 02/23/2024 9:53 AM documented in this encounter Plan of Treatment Not on file documented as of this encounter Visit Diagnoses Diagnosis Iron deficiency anemia, unspecified iron deficiency anemia type documented in this encounter
--- OUTSIDE RECORDS SUMMARY | 2024-05-23 15:02 | XMS_ITS | Encounter Summary ---
Author Organization [facility] Address [address], [place] [address] Care Team Providers Care Compression Molding Machine Operator Name Role Phone No Primary/Referring, Phy Primary Care Provider Unavailable Encounter Details Date Type Department Care Team (Late st Contact Info) Description 08/31/2018 Consent for Procedure/Treatme nt [facility] Department INFORMED CONSENT RECORD Social History Tobacco Use Types Packs/Day Years Used Date Smoking Tobacco: Never Assessed Sex and Gender Information Value Date Recorded Sex Assigned at Not on file Gender Identity Not on file Sexual Orientation Not on file documented as of this encounter Plan of Treatment Not on file documented as of this encounter Visit Diagnoses Not on filedocumented in this encounter Care Teams Compression Molding Machine Operator Relationship Specialty Start Date End Date No Primary/Referring, Phy PCP - General 04/28/24 documented as of this encounter
--- OUTSIDE RECORDS SUMMARY | 2024-05-23 15:02 | XMS_ITS | Encounter Summary ---
Author Organization [facility] Address [address] [address] Care Team Providers Care Veterinary X Ray Operator Name Role Phone No Primary/Referring, Phy Primary Care Provider Unavailable Encounter Details Date Type Department Care Team (Late st Contact Info) Description 08/31/2018 [facility] Department RH PERMISSION TO CUT RINGS Social History Tobacco Use Types Packs/Day Years Used Date Smoking Tobacco: Never Assessed Sex and Gender Information Value Date Recorded Sex Assigned at Not on file Gender Identity Not on file Sexual Orientation Not on file documented as of this encounter Plan of Treatment Not on file documented as of this encounter Visit Diagnoses Not on filedocumented in this encounter Care Teams Veterinary X Ray Operator Relationship Specialty Start Date End Date No Primary/Referring, Phy PCP - General 04/28/24 documented as of this encounter
--- OUTSIDE RECORDS SUMMARY | 2024-05-23 15:02 | XMS_ITS | Encounter Summary ---
Author Organization [facility] Address [address], [place] [address] Care Team Providers Care Employment Adjudicator Name Role Phone Unavailable Primary Care Provider Unavailabl e Reason for Visit * Auth/Cert (Routine) Specialty Diagnoses / Procedures Referred By Contac t Referred To Contact Diagnoses Nausea and vomiting, unspecified vomiting type Hypomagnesemia Urinary tract infection with hematuria, site unspecified Hypomagnesemia Nausea and vomiting, unspecified vomiting type Urinary tract infection with hematuria, site unspecified Referral ID Status Reason Start Date Expiration Date Visits Re quested Visits Authorized [id number] 1 1 Encounter Details Date Type Department Care Team (Late st Contact Info) Description 04/27/2024 10:30 PM CDT Ancillary Procedure [facility] [address] [place] [address] Social History Tobacco Use Types Packs/Day Years Used Date Smoking Tobacco: Never Smokeless Tobacco: Never Alcohol Use Standard Drinks/Week Comments Not Currently 0 (1 standard drink = 0.6 oz pure alcohol) Quit 1.5 months ago. Was drinking a 6 pack and a shot at a time. [facility] Utilities Answer Date Recorded In the past 12 months has [employer], gas, oil, or water [employer] threatened to shut off services in your [...] on file documented as of this encounter Procedures Procedure Name Priority Date/Time Associated Diagnosis Comments XR CHEST 1 VIEW STAT 04/27/2024 10:37 PM CDT documented in this encounter Results * XR Chest 1 View (04/27/2024 10:37 PM CDT) Anatomical Region Laterality Modality Chest, Lung Computed Radiogr aphy 04/27/2024 10:3 7 PM CDT Narrative 04/27/2024 10:48 PM CDT EXAM: XR CHEST 1 VIEW LOCATION: [facility] DATE: 04/27/2024 INDICATION: Cp, PAIN COMPARISON: 04/01/2019 IMPRESSION: Heart size and pulmonary vascularity normal. The lungs are clear. Old left eighth rib fracture. Right cervical rib. Procedure Note Jesus Sheets MD - 04/27/2024 EXAM: XR CHEST 1 VIEW LOCATION: [facility] DATE: 04/27/2024 INDICATION: Cp, PAIN COMPARISON: 04/01/2019 IMPRESSION: Heart size and pulmonary vascularity normal. The lungs areclear. Old left eighth rib fracture. Right cervical rib. Khurram Graham PA-C RAD GD documented in this encounter Visit Diagnoses Not on filedocumented in this encounter
--- OUTSIDE RECORDS SUMMARY | 2024-05-23 15:02 | XMS_ITS | Encounter Summary ---
Author Organization [facility] Address [address], [place] [address] Care Team Providers Care Aerospace Medicine Physician Name Role Phone Unavailable Primary Care Provider Unavailabl e Reason for Visit * Reason Comments Refill gabapentin (NEURONTI N) 800 MG tablet [Pharmacy Med Name: GABAPENTIN 800MG TABLETS] Encounter Details Date Type Department Care Team (Late st Contact Info) Description 02/23/2024 Refill [facility] [address] [place] [phone] Helen Mena, [address] [place], [place] [phone] Refill (gabapentin (NEURONTIN) 800 MG tablet [Pharmacy Med Name: GABAPENTIN 800MG TABLETS]) Social History Tobacco Use Types Packs/Day Years [...] as of this encounter Nursing Notes * Flory Olguin - 03/09/2024 2:00 PM CDT Medication Refill - Due for Visit Medication denied. Needs to be seen prior to refills. Called patient, was: unable to reach patient. 2nd call attempted. Unsuccessful in reaching patient. Frontline Action: Route to clinician identified in nursing documentation below. Clinician Action: Unsuccessful in reaching patient to schedule, requests refill. Please determine whether refill is appropriate. Recommend using ???Refuse All?? quick action to address request. * Flory Olguin - 03/07/2024 12:55 PM CDT Medication Refill - Due for Visit Medication denied. Needs to be seen prior to refills. Called patient, was: unable to reach patient. 1st call attempted. Left message to call back. Scheduling Action: Patient needs to schedule an appointment in the next 30 days. If able to schedule, please document date of appointment and route to clinician/pool identified in nursing documentation below. * Helen Mena DO - 02/23/2024 12:38 PM CDT I have not seen her since 2020. She needs an appointment. Refill request denied. Helen Mena DO 02/23/2024, 12:38 PM * Kane Canales Xrwcomm - 02/23/2024 5:36 AM CDT gabapentin (NEURONTIN) 800 MG tablet [Pharmacy Med Name: GABAPENTIN 800MG TABLETS] None Exists -> The ordering provider on the previous renewal is linked to a different protocol set. -> The ordering provider is not on a protocol set. -> Medication cannot be delegated. -> A qualifying visit was not found within the last 2 years. Last qualifying visit: None (A recent visit (in Family Practice with BRICE STAPLETON) was found) Next scheduled visit: None Last ordered by HELEN MENA: 01/10/2024 (44 days ago) QTY: 120, Refills: 0, Sig: take 1 tablet (800 mg) by mouth 4 times a day. (changed but equivalent) [facility] Embedded Refills, Reference: [id number], 02/23/2024 5:36:57 AM CDT, Crow: Rodri Refill [facility] - Primary Care [[id number]] ([id number]) documented in this encounter Plan of Treatment Not on file documented as of this encounter Visit Diagnoses Diagnosis Chronic bilateral low back pain with bilateral sciatica documented in this encounter
--- OUTSIDE RECORDS SUMMARY | 2024-05-23 15:02 | XMS_ITS | Encounter Summary ---
Author Organization [facility] Address [address] [address] Care Team Providers Care Monument Mason Name Role Phone No Primary/Referring, Phy Primary Care Provider Unavailable Encounter Details Date Type Department Care Team (Latest Contact Info) Description 12/11/1997 Orders Only Marjan Soliz, FRUIT BUYING GRADER, ANIMAL HEALTH TECHNICIAN [address] [address] Social History Tobacco Use Types Packs/Day Years Used Date Smoking Tobacco: Never Assessed Sex and Gender Information Value Date Recorded Sex Assigned at Not on file Gender Identity Not on file Sexual Orientation Not on file documented as of this encounter Plan of Treatment Not on file documented as of this encounter Visit Diagnoses Not on filedocumented in this encounter Care Teams Monument Mason Relationship Specialty Start Date End Date No Primary/Referring, Phy PCP - General 04/28/24 documented as of this encounter
--- OUTSIDE RECORDS SUMMARY | 2024-05-23 15:02 | XMS_ITS | Encounter Summary ---
Author Organization [facility] Address [address] [address] Care Team Providers Care Shaving Machine Operator Name Role Phone No Primary/Referring, Phy Primary Care Provider Unavailable Reason for Visit * Auth/Cert (Routine) Specialty Diagnoses / Procedures Referred By Contac t Referred To Contact Diagnoses Nausea and vomiting, unspecified vomiting type Hypomagnesemia Urinary tract infection with hematuria, site unspecified Hypomagnesemia Nausea and vomiting, unspecified vomiting type Urinary tract infection with hematuria, site unspecified Referral ID Status Reason Start Date Expiration Date Visits Re quested Visits Authorized [id number] 1 1 Encounter Details Date Type Department Care Team (Late st Contact Info) Description 04/29/2024 4:55 PM CDT Ancillary Procedure [facility] [address] [place] [id number] Social History Tobacco Use Types Packs/Day Years Used Date Smoking Tobacco: Never Smokeless Tobacco: Never Alcohol Use Standard Drinks/Week Comments Not Currently 0 (1 standard drink = 0.6 oz pure alcohol) Quit 1.5 months ago. Was drinking a 6 pack and a shot at a time. [facility] Utilities Answer Date Recorded In the past 12 months has [employer], gas, oil, or water [employer] threatened to shut off services in your [...] place to sleep or slept in a m[facility]p (including now)? No 04/28/2024 Sex and Gender Information Value Date Recorded Sex Assigned at Not on file Gender Identity Not on file Sexual Orientation Not on file documented as of this encounter Plan of Treatment Not on file documented as of this encounter Procedures Procedure Name Priority Date/Time Associated Diagnosis Comments XR ABD 2 VIEWS ROUTINE Routine 04/29/2024 5:19 PM CDT documented in this encounter Results * XR Abd 2 Views Routine (04/29/2024 5:19 PM CDT) Anatomical Region Laterality Modality Abdomen Computed Radiogr aphy 04/29/2024 5:19 PM CDT Narrative 04/29/2024 6:09 PM CDT EXAM: XR ABD 2 VIEWS ROUTINE LOCATION: [facility] DATE: 04/29/2024 INDICATION: Nausea, abdominal discomfort, no BM, concern for SBP or ileus, NAUSEA COMPARISON: None. IMPRESSION: Nondistended loops of large and small bowel with associated air- fluid levels suggesting ileus. No free air. No evidence for renal stones. Pelvic phleboliths. Procedure Note Beny Ruvalcaba MD - 04/29/2024 EXAM: XR ABD 2 VIEWS ROUTINE LOCATION: [facility] DATE: 04/29/2024 INDICATION: Nausea, abdominal discomfort, no BM, concern for SBP or ileus,NAUSEA COMPARISON: None. IMPRESSION: Nondistended loops of large and small bowel with associatedair-fluid levels suggesting ileus. No free air. No evidence for renalstones. Pelvic phleboliths. Ayala Garcia MD RAD GD documented in this encounter Visit Diagnoses Not on filedocumented in this encounter Care Teams Shaving Machine Operator Relationship Specialty Start Date End Date No Primary/Referring, Phy PCP - General 04/28/24 documented as of this encounter
--- OUTSIDE RECORDS SUMMARY | 2024-05-23 15:02 | XMS_ITS | Encounter Summary ---
Author Organization [facility] Address [address] [address] Care Team Providers Care Hunter Guide Name Role Phone Unavailable Primary Care Provider Unavailabl e Reason for Visit * Reason Comments Refill QUEtiapine (SEROQUEL ) 100 MG tablet [Pharmacy Med Name: QUETIAPINE 100MG TABLETS] Encounter Details Date Type Department Care Team (Late st Contact Info) Description 01/30/2024 Refill [facility] [address] [place] [phone] Helen Mena, [address] [place] [address] Refill (QUEtiapine (SEROQUEL) 100 MG tablet [Pharmacy Med Name: QUETIAPINE 100MG TABLETS]) Social History Tobacco Use Types Packs/Day [...] as of this encounter Nursing Notes * Krystal Shannon - 02/01/2024 11:39 AM CDT Medication Refill - Due for Visit Medication still pending, patient is due to be seen in the next 30 days. *Per prior note, pt no longer lives in the area. Please inform patient to notify her pharmacy they are sending this request tothe wrong clinic. Called patient, was: unable to reach patient. 1st call attempted. Left message to call back. Scheduling Action: Patient needs to schedule an appointment in the next 30 days. If able to schedule, please document date of appointment and route to clinician/pool identified in nursing documentation below. * Helen Mena DO - 01/31/2024 8:11 AM CDT I have not seen her since 2020. Rx not approved. Needs visit for further refills. Please notify patient. Thanks. Helen Mena DO 01/31/2024, 8:11 AM * Kane Canales Xrwcomm - 01/30/2024 10:16 PM CDT QUEtiapine (SEROQUEL) 100 MG tablet [Pharmacy Med Name: QUETIAPINE 100MG TABLETS] None Exists -> Medication cannot be delegated. -> A qualifying visit was not found within the last 2 years. Last qualifying visit: None (A recent visit (in Family Practice with BRICE STAPLETON) was found) Next scheduled visit: None Last ordered by HELEN MENA: 01/10/2024 (20 days ago) QTY: 30, Refills: 0, Sig: take 1 tablet (100 mg) by mouth daily at bedtime. (changed but equivalent) [employer] Embedded Refills, Reference: [id number], 01/30/2024 10:16:41 PM CDT, Pool: [facility] - Primary Care [[id number]] ([id number]) documented in this encounter Plan of Treatment Not on file documented as of this encounter Visit Diagnoses Diagnosis Anxiety with depression (HRC) documented in this encounter
--- OUTSIDE RECORDS SUMMARY | 2024-05-23 15:02 | XMS_ITS | Encounter Summary ---
Author Organization [facility] Address [address] [place] [address] Care Team Providers Care Pole Maker Name Role Phone No Primary/Referring, Phy Primary Care Provider Unavailable Encounter Details Date Type Department Care Team (Late Contact Info) Description 06/09/2012 Education Security Contact-Annie Schwab Social History Tobacco Use Types Packs/Day Years Used Date Smoking Tobacco: Never Smokeless Tobacco: Never Alcohol Use Standard Drinks/Week Comments Yes 0 (1 standard drink = 0.6 oz pur e alcohol) rare Sex and Gender Information Value Date Recorded Sex Assigned at Not on file Gender Identity Not on file Sexual Orientation Not on file documented as of this encounter Progress Notes * Annie Chapman - 06/09/2012 12:00 AM CDT DEPT: Health Promotion Provider: Annie Chapman Bariatric Pre-Operative Call #1 S: Reached for pre-operative call #1; member reported: will be having RYGB; had this procedure 3 years ago and lost 113#, has gained only 5#; other support: aunt mom sister dad kids has a grandbaby; pros of surgery: health, children, be able to play with grandbaby; cons of surgery: scared of needles; wt loss before surgery: none given because is right at border of qualifying for surgery; has been chewing more; when I work, I go out often for fast food; I don't like cafeteria food; last wednesday I went to two fast food restaurants; what to do instead: grab something healthier/make lunch and take with her. O: Discussed: support and support groups, pros/cons, goals. A: client is at Action stage of change for self monitoring, making changes in preparation for bariatric surgery. P: Goals: eat better foods - less fast food and pack own lunch; Next call scheduled on 06/23/2012 with Annie Chapman. documented in this encounter Plan of Treatment Not on file documented as of this encounter Visit Diagnoses Not on filedocumented in this encounter Care Teams Pole Maker Relationship Specialty Start Date End Date No Primary/Referring, Phy PCP - General 04/28/24 documented as of this encounter
--- OUTSIDE RECORDS SUMMARY | 2024-05-23 15:02 | XMS_ITS | Encounter Summary ---
Author Organization [facility] Address [address] [address] Care Team Providers Care Glove Parts Inspector Name Role Phone No Primary/Referring, Phy Primary Care Provider Unavailable Encounter Details Date Type Department Care Team (Late st Contact Info) Description 09/27/2018 [facility] [address] [place] [address] Tran De La Vega PA-C [address] [place] [address] FMLA Social History Tobacco Use Types Packs/Day Years [...] on filedocumented in this encounter Care Teams Glove Parts Inspector Relationship Specialty Start Date End Date No Primary/Referring, Phy PCP - General 04/28/24 documented as of this encounter
--- OUTSIDE RECORDS SUMMARY | 2024-05-23 15:02 | XMS_ITS | Encounter Summary ---
Author Organization [facility] Address [address], [place] [address] Care Team Providers Care Urban Gardening Specialist Name Role Phone No Primary/Referring, Phy Primary Care Provider Unavailable Encounter Details Date Type Department Care Team (Latest Contact Info) Description 05/08/1997 Orders Only Samaria Felix Social History Tobacco Use Types Packs/Day Years Used Date Smoking Tobacco: Never Assessed Sex and Gender Information Value Date Recorded Sex Assigned at Not on file Gender Identity Not on file Sexual Orientation Not on file documented as of this encounter Plan of Treatment Not on file documented as of this encounter Visit Diagnoses Not on filedocumented in this encounter Care Teams Urban Gardening Specialist Relationship Specialty Start Date End Date No Primary/Referring, Phy PCP - General 04/28/24 documented as of this encounter
--- OUTSIDE RECORDS SUMMARY | 2024-05-23 15:02 | XMS_ITS | Encounter Summary ---
Author Organization [facility] Address [address] [address] Care Team Providers Care Government Gauger Name Role Phone Unavailable Primary Care Provider Unavailabl e Reason for Visit * Reason Comments Refill gabapentin (NEURONTI N) 800 MG tablet [Pharmacy Med Name: GABAPENTIN 800MG TABLETS] Encounter Details Date Type Department Care Team (Late st Contact Info) Description 03/24/2024 Refill [facility] [address] [place] [phone] Helen Mena, [address] [place], [place] [phone] Refill (gabapentin (NEURONTIN) 800 MG tablet [Pharmacy [...] as of this encounter Nursing Notes * Destiny Wellington - 04/12/2024 12:05 PM CDT Medication Refill - Due for [...] unable, route as low priority to Refill JESSICA gutierrez. * Grace Stover RN - 03/28/2024 8:29 AM CDT No return call after two unsuccessful attempts to reach patient. Letter sent. ..Adelaida Stover RN03/28/2024 8:30 AM * Arie Lawler RN - 03/27/2024 9:23 AM CDT Left message for patient to return call to clinic. Arie Lawler RN 03/27/2024, 9:23 AM * Arie Lawler RN - 03/24/2024 12:21 PM CDT Left message for patient to return call to clinic. Arie Lawler RN 03/24/2024, 12:21 PM * Arie Lawler RN - 03/24/2024 9:57 AM CDT Unable to leave message, busy signal. Arie Lawler RN 03/24/2024, 9:57 AM * Helen Mena DO - 03/24/2024 9:36 AM CDT I have not seen patient since 2020. Rx not approved. Needs visit for further refills. Helen Mena DO 03/24/2024, 9:36 AM * Kane Canales - 03/24/2024 9:11 AM CDT gabapentin (NEURONTIN) 800 MG tablet [Pharmacy Med Name: GABAPENTIN 800MG TABLETS] None Exists -> Medication cannot be delegated. -> A qualifying visit was not found within the last 2 years. Last qualifying visit: None (A recent visit (in Family Practice with BRICE STAPLETON) was found) Next scheduled visit: None Last ordered by HELEN MENA: 01/10/2024 (74 days ago) QTY: 120, Refills: 0, Sig: take 1 tablet (800 mg) by mouth 4 times a day. (changed but equivalent) [employer] Embedded Refills, Reference: [id number], 03/24/2024 9:11:24 AM CDT, [facility] - [facility] [[id number]] ([id number]) documented in this encounter Plan of Treatment Not on file documented as of this encounter Visit Diagnoses Diagnosis Chronic bilateral low back pain with bilateral sciatica documented in this encounter
--- OUTSIDE RECORDS SUMMARY | 2024-05-23 15:02 | XMS_ITS | Clinical Summary ---
Author Organization [facility] Address [place], [place] [address] Care Team Providers Care Economic Development Manager Name Role Phone Ayala Benites Primary Care Provider [phone] Allergies No known active allergies Medications Medication [...] Pain Management and Rehabilitation Specilialist of the [facility] pain clinic. See scanned images for further [...] 08/24/20 16 Chronic low back pain 11/06/20102015 Encounters Date Type Department Care Team Description 03/15/2024 Orders Only INTERFACED 1 Patricia Maher MD <No scans attached> from Last 3 Months Immunizations Name Administration [...] Outcome GA Total Labor Labor/2nd/3rd Weight Sex Type Anes PTL Maggi A1 A5 Name Clin Term Term Last Filed Vital Signs Vital Sign Reading Time Taken Comments Blood Pressure 136/80 09/04/2019 1:45 PM BLOCK CABLEMAN Pulse 102 09/04/2019 1:45 PM BLOCK CABLEMAN Temperature 36.6 ??C (97.8 ??F) 08/09/2020 1:26 PM CD T Respiratory Rate 18 09/04/2019 1:45 PM BLOCK CABLEMAN Oxygen Saturation 98% 08/09/2020 1:26 PM CDT Inhaled Oxygen Concentration - - Weight 104.3 kg (230 lb) 08/09/2020 1:26 PM CDT Height 172.7 cm (5' 8) 08/09/2020 1:26 PM CDT Body Mass Index 34.97 08/09/2020 1:26 PM CDT Plan of Treatment Health Maintenance Due Date Last Done Comments Mammogram for age 45-75 2014 Zoster (shingles) [...] 08/31/2028 08/31/2018, 03/2017, 10/19/2007, Additional history exists Colonoscopy through age 75 03/15/2034 03/15/2024 HIV for age 15-65 Completed 05/01/2016, 05/20/2012 Hepatitis C screening for age 18-79 Completed 05/01/2016 Tdap Completed 08/31/2018, 03/2017, 10/19/2007 Pneumococcal series for age 6-64 Aged Out No longer eligible based on patient's age to complete this topic Goals Goal Patient Goal Type Associated Problems Recent Progress Patient-Stated? Author BLOOD PRESSURE-MA INTAINS BP LESS THAN 130/80 Blood Pressure No Janes Goode [employer]BS Medical Devices Implanted Type Area Washing Machine Loader And Puller Device Identifier Shelf Expiration Date Model / Serial / Lot Seamguard Reinforcement [id number] - [id number] Implanted:Qty: 2 on 03/22/2013 by Sergio Early MD at [facility] N/A: Stomach [employer] 11/10/2015 [id number] # / / [id number] Seamguard Reinforcement Gec60 - [id number] Implanted:Qty: 1 on 03/22/2013 by Sergio Early MD at [facility] N/A: Stomach [employer] 11/10/2015 [id number] # / / [id number] Screw [employer] [id number] Asnis [employer] - [id number] Implanted:Qty: 1 on 07/04/2014 by Lukas Mcadams DPM at [facility] Right: Foot [employer] [id number]# / / Description:Load #4-3 2013 [employer] [id number] Asnis Micro - [id number] Implanted:Qty: 1 on 07/04/2014 by Lukas Mcadams DPM at [facility] Right: Foot [employer] [id number]# / / Description:Load #4-3 2013 Sling Pelvic Exact Retropubic Continence - [id number] Implanted:Qty: 1 on 02/04/2015 by Naveed Jimenes MD at [facility] N/A: Vagina [employer] 11/10/2015 [id number]# / / [id number] Sling Pelvic Lynx Suprapubic Continence - [id number] Implanted:Qty: 1 on 04/05/2017 by Cm Lucio MD at [facility] N/A: Vagina [facility] 02/05/2018 [id number]# / / [id number] Explanted Type Area Washing Machine Loader And Puller Device Identifier Shelf Expiration Date Model / Serial / Lot Wire Kirs .[id number] Smooth6/Pk - [id number] Explanted:Qty: 1 on 07/04/2014 by Lukas Mcadams DPM at [facility] Right: Foot [employer]UMA 0# / / Description:Load #2-6 K-Wire [id number] Strl Sgl Use - [id number] Explanted:Qty: 3 on 07/04/2014 by Lukas Mcadams DPM at [facility] Right: Foot [employer] [id number]# / / Description:load#4-3 014 Procedures Procedure Name Priority Date/Time Associated Diagnosis Comments SCAN-COLONOSCOPY 03/15/2024 1:30 PM CDT LIPID PANEL W REFLEX MEASURED LDL Routine 11/05/2016 2:35 PM BLOCK CABLEMAN Gastric bypass status for obesity ANTI HIV 1/2 Routine 05/01/2016 11:48 AM CDT Screening for STD (sexually transmitted disease) ANTI HCV Routine 05/01/2016 11:48 AM CDT Screening for STD (sexually transmitted disease) from Last 3 Months or Most Recently Relevant to Health Maintenance Results * SCAN-COLONOSCOPY (03/15/2024 1:30 PM CDT) Narrative Procedure Note Patricia Maher MD - 03/15/2024 12:34 PM CDT [facility] [address], [address], [place] [address] Patient Name: Peggy Kendrick Gender: Female Exam Date: 03/15/2024 Visit Number: [id number] Age: 53 Years Date of : 1970 Attending MD: Patricia Maher MD Medical Record#: [id number] Procedure: Colonoscopy Indications: Screening after positive non-invasive stool test Referring MD: Ariana Hammonds EVALUATION ANALYST Primary MD: Ariana Hammonds EVALUATION ANALYST Medications: Admitting Medications: 0.9% Normal Saline at [facility] Ondansetron Hydrochloride (Zofran) given 4mg by IV Intra Procedure Medications: Patient received monitored anesthesia care. Complications: No immediate complications Procedure: An examination of the heart and lungs was performed and found to be withinacceptable limits. . The patient was therefore deemed a reasonablecandidate for endoscopy and sedation. The risks and benefits of the procedure were explained to the patient.After obtaining informed consent, the patient received monitoredanesthesia care and I passed the scope with difficulty via the rectum to the cecum. The appendiceal orifice andic valve were identified. The scope was retroflexed during theexamination The quality of the prep was adequate (Phillip/Gat DoubleSplit). This was a complete examination throughout the entire colon. Findings: Polyp location: transverse colon-proximal. Quantity: 1. Size: 18-20.Polyp shape: sessile. Maneuver: endoscopic tattoo and polypectomy was performed with a coldsnare and hemoclip. Removal: complete. Retrieval: complete. Bleeding: none. Polyp location: transverse colon-mid. Quantity: 1. Size: 11-15 mm.Polyp shape: sessile. Maneuver: polypectomy was performed with a cold snare andhemoclip. Removal: complete. Retrieval: complete. Bleeding: none. Polyp location: transverse colon. Quantity: 1. Size: 5 mm. Polypshape: sessile. Maneuver: polypectomy was performed with a cold snare. Removal: complete. Retrieval: complete. Bleeding: none. 2 hemoclips placed on the prox and mid transverse colon polyp sites givenpersistent oozing after polypectomy. The proximal polyp was removedpiecemeal and tattoo placed just distal. Extremely long and redundant colon. Position changes and 2 personabdominal pressure required to reach cecum with the scope hubbed.Location. Impression: Colorectal polyps MD impression comments: 3 polyps removed, 2 advanced by size extremely long and redundant colon prep was generally adequate after extensive cleaning- this was with adouble prep Preliminary Plan: Repeat colonoscopy in 1 year Pathology Results: A: COLON, TRANSVERSE, POLYP: 1. Tubular adenoma 2. Negative for high grade dysplasia 3. Per the colonoscopy report: a. Polyp size: 5 mm b. Resection: Complete c. Retrieval: Complete B: COLON, MID TRANSVERSE, POLYP: 1. Tubular adenoma which is an advanced adenoma due to size (seecomment) 2. Negative for high grade dysplasia and invasive malignancy 3. Per the colonoscopy report: a. Polyp size: 11-15 mm b. Resection: Complete c. Retrieval: Complete C: COLON, PROXIMAL TRANSVERSE, POLYP: 1. Tubular adenoma which is an advanced adenoma due to size (seecomment) 2. Negative for high grade dysplasia and malignancy 3. Per the colonoscopy report: a. Polyp size: 18 mm - 20 mm b. Resection: Complete c. Retrieval: Complete COMMENTS B,C. Advanced adenoma of the colorectum is defined by the [place] [employer]of G[employer] (ACG) as an adenoma that is 1 cm or more in size,contains an appreciable villous component, or has high grade dysplasia(Zia JH; Polyp Guideline: Diagnosis, Treatment, and Surveillance forPatients with Colorectal Polyps. Am J [id number];95(11):1866-6926). This polyp qualifies as such. Patients withadvanced adenomas are at increased risk for synchronous and metachronousadditional advanced adenomas. Appropriate follow-up is suggested. MICROSCOPIC A: Performed B: Performed C: Performed Electronically signed by: Linda Bustamante [place] [address] Orders Instruction(s)/Education: Instruction/Education Timeframe Assessment Colon Cancer Prevention K63.5 Colon Polyps K63.5 Final Plan: Repeat colonoscopy in 1 year. We will attempt to contact you at appropriate intervals via U.S. mail. Wemay not be able to find you or contact you at that time, therefore youshould know that the responsibility for following our recommendation restswith you. If you don't hear from us at the time your procedure is due,please contact our office to schedule an appointment. If your contactinformation should change, please contact our office so that we can updateyour record. _Electronically signed by: Patricia Maher MD 03/15/2024 cc: Ariana Hammonds NP cc: Ariana Hammonds NP Patricia Maher MD OTHER * (ABNORMAL) LIPID PANEL W REFLEX MEASURED LDL (11/05/2016 2:35 PM BLOCK CABLEMAN) CHOLESTEROL,TOTAL 180 100 - 199 mg/dL 11/05/2016 3:07 PM [facility] TRIGLYCERIDES 191(H) <150 mg/dL 11/05/2016 3:07 PM BLOCK CABLEMAN [facility] HDL CHOLESTEROL 47 >40 mg/dL 7 3:07 PM BLOCK CABLEMAN [facility] NON-HDL CHOLESTEROL 133 <145 mg/dl 11/05/2016 3:07 PM BLOCK CABLEMAN [facility] CHOL/HDL RATIO 3.83 <4.50 11/05/2016 3:07 PM BLOCK CABLEMAN [facility] LDL CHOLESTEROL 95 <=130 mg/dL 11/05/2016 3:07 PM BLOCK CABLEMAN [facility] PATIENT STATUS FASTING 11/05/2016 3:07 PM BLOCK CABLEMAN [facility] Blood BLOOD SPECIMEN / Unknown Venipuncture / Unknown 11/05/2016 2:35 PM BLOCK CABLEMAN 11/05/2016 2:48 PM BLOCK CABLEMAN Alisha Gomez MD CHEMISTRY [facility] SENDOUT INTERNAL ZIP [address] [place] [address] * ANTI HCV (05/01/2016 11:48 AM CDT) HEPATITIS C ANTIBODY Non-Reacti ve Non-Reacti ve 05/01/2016 8:49 PM CDT [facility] Blood BLOOD SPECIMEN / Unknown Venipuncture / Unknown 05/01/2016 11:48 AM CDT 05/01/2016 12:57 PM CDT Narrative [facility] - 05/01/2016 8:49 PM CDT Antibodies to HCV not detected; does not exclude the possibility of exposure to HCV. Janes ESCALANTEBS SEND OUTS [facility] [address] [place] [address], * ANTI HIV 1/2 (05/01/2016 11:48 AM CDT) HIV-1/HIV-2 ANTIBODY Non-Reacti ve Non-Reacti ve 05/01/2016 8:50 PM CDT [facility]AL [facility] Blood BLOOD SPECIMEN / Unknown Venipuncture / Unknown 05/01/2016 11:48 AM CDT 05/01/2016 11:50 AM CDT Narrative [facility] - 05/01/2016 8:50 PM CDT HIV-1 p24 and HIV-1/HIV-2 Ab not detected Janes MUÑOZ SEND OUTS [facility] [address] [place] [address], from Last 3 Months or Most Recently Relevant to Health Maintenance Nhung Kendricknda Rosana Personal/Family Self 1970 [address] [address] Nhung Kendricknda Rosana Workers Comp Self 1970 [address] [place] [address] MireilleNhung downsnda S Workers Comp Self 1970 [address] [place] [address] Mireille, Peggy S Workers Comp Self 1970 [address] [place] [address] Mireille, Peggy S Workers Comp Self 1970 [address] [place] [address] Mireille, Peggy S Workers Comp Self 1970 [address] [place] [address] Mireille, Peggy S Workers Comp Self 1970 [address] [place] [address] Nhung Kendricknda S Personal/Family Self 1970 [address] [place] [id number] Mireille, Peggy S Personal/Family Self 1970 [address] [place] [phone] Advance Directives * Full Code (Latest Code [...] 10:21 AM 02/04/2015 11:13 AM Care Teams Economic Development Manager Relationship Specialty Start Date End Date Ayala Benites DO [address] [place] [address] PCP - General Family Practice 06/27/20
== END 2024-05-23 14:57 | disposition home or self-care (01) ==
PROVIDERS: PCP Nurse Practitioner Family; Visit Provider Nurse Practitioner Family
DX: R10.32 Left lower quadrant pain (principal); Z98.84 Bariatric surgery status; Z87.19 Personal history of other diseases of the digestive system
CPT/HCPCS: 80053; 81001; 82607; 85025; 87086

== ENCOUNTER 2024-05-30 11:27 | Outpatient (CLI) | payer OTHER, SELFPAY ==
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
--- OUTSIDE RECORDS SUMMARY | 2024-05-30 11:31 | XMS_ITS | Encounter Summary ---
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 Was drinking a 6 pack and a shot at a time. [facility] Utilities Answer Date Recorded In the past 12 months has [employer], gas, oil, or water [employer] threatened to shut off services in your [...] CDT EXAM: XR CHEST 1 VIEW LOCATION: [facility] DATE: 04/27/2024 INDICATION: Cp, PAIN COMPARISON: 04/01/2019 IMPRESSION: Heart size and pulmonary vascularity normal. The lungs are clear. Old left eighth rib fracture. Right cervical rib. Procedure Note Jesus Sheets MD - 04/27/2024 EXAM: XR CHEST 1 VIEW LOCATION: [facility] DATE: 04/27/2024 INDICATION: Cp, PAIN COMPARISON: 04/01/2019 IMPRESSION: Heart size and pulmonary vascularity normal. The lungs areclear. Old left eighth rib fracture. Right cervical rib. Khurram Graham PA-C RAD GD documented in this encounter Visit Diagnoses Not on filedocumented in this encounter
--- OUTSIDE RECORDS SUMMARY | 2024-05-30 11:31 | XMS_ITS | Encounter Summary ---
Author Organization [facility] Address [address] [address] Care Team Providers Care Network Control Supervisor Name Role Phone No Primary/Referring, Phy Primary [...] on filedocumented in this encounter Care Teams Network Control Supervisor Relationship Specialty Start Date End Date No Primary/Referring, Phy PCP - General 04/28/24 documented as of this encounter
--- OUTSIDE RECORDS SUMMARY | 2024-05-30 11:31 | XMS_ITS | Encounter Summary ---
Author Organization [facility] Address [address], [place] [address] Care Team Providers Care Washer Carcass Name Role Phone Unavailable Primary Care Provider Unavailabl e Reason for Visit * Reason Onset Date Comments Refill 02/23/2024 ferrous sulfate 325 (65 Fe) MG tablet Encounter Details Date Type Department Care Team (Late st Contact Info) Description 02/23/[address] [facility] [address] [place] [phone] 266 Ayala Benites, [address] [place], [place] [phone] Refill (ferrous sulfate 325 (65 Fe) MG [...] CDT Per 02/17/23 encounter, pt lives in [place] and gets her care there Will deny [...] 02/03/2021 HGB: 12.6 g/dL on 02/03/2021 [facility] Embedded Refills, Reference: [id number], 02/23/2024 9:53:59 AM Adelina JIMENEZ [facility] Services - Primary Care [[id number]] ([id number]) * Kane Canales Xrwcomm - 02/23/2024 9:54 [...]
--- OUTSIDE RECORDS SUMMARY | 2024-05-30 11:31 | XMS_ITS | Encounter Summary ---
Author Organization [facility] Address [address], [place] [address] Care Team Providers Care Compressor Operator Portable Name Role Phone No Primary/Referring, Phy Primary Care Provider Unavailable Encounter Details Date Type Department Care Team (Latest Contact Info) Description 12/11/1997 Orders Only Marjan Soliz, TRACK WATCHMAN, INSIDE SALES RECRUITER [address] [id number] Social History Tobacco Use Types Packs/Day Years Used Date Smoking Tobacco: Never Assessed Sex and Gender Information Value Date Recorded Sex Assigned at Not on file Gender Identity Not on file Sexual Orientation Not on file documented as of this encounter Plan of Treatment Not on file documented as of this encounter Visit Diagnoses Not on filedocumented in this encounter Care Teams Compressor Operator Portable Relationship Specialty Start Date End Date No Primary/Referring, Phy PCP - General 04/28/24 documented as of this encounter
--- OUTSIDE RECORDS SUMMARY | 2024-05-30 11:31 | XMS_ITS | Encounter Summary ---
Author Organization [facility] Address [address], [place] [address] Care Team Providers Care Window Maker Name Role Phone No Primary/Referring, Phy Primary Care Provider Unavailable Encounter Details Date Type Department Care Team (Late st Contact Info) Description 08/31/2018 Consent for Procedure/Treatme nt [facility] INFORMED CONSENT RECORD Social History Tobacco [...] on filedocumented in this encounter Care Teams Window Maker Relationship Specialty Start Date End Date No Primary/Referring, Phy PCP - General 04/28/24 documented as of this encounter
--- OUTSIDE RECORDS SUMMARY | 2024-05-30 11:31 | XMS_ITS | Encounter Summary ---
Author Organization [facility] Address [address] [address] Care Team Providers Care Buffet Server Name Role Phone Unavailable Primary Care Provider Unavailabl e Reason for Visit * Reason Comments Refill QUEtiapine (SEROQUEL ) 100 MG tablet [Pharmacy Med Name: QUETIAPINE 100MG TABLETS] Encounter Details Date Type Department Care Team (Late st Contact Info) Description 01/30/2024 Refill [facility] [address] [place] [phone] Helen Mena, [address] [place] [address] Refill (QUEtiapine (SEROQUEL) 100 MG tablet [Pharmacy [...] mouth daily at bedtime. (changed but equivalent) [facility] Embedded Refills, Reference: [id number], 01/30/2024 10:16:41 PM CDT, Pool: [facility] - Primary Care [[id number]] ([id number]) documented in this encounter Plan of Treatment Not on file documented as of this encounter Visit Diagnoses Diagnosis Anxiety with depression (HRC) documented in this encounter
--- OUTSIDE RECORDS SUMMARY | 2024-05-30 11:31 | XMS_ITS | Encounter Summary ---
Author Organization [facility] Address [address], [place] [address] Care Team Providers Care Asp Net Mvc Developer Name Role Phone Unavailable Primary Care Provider Unavailabl e Reason for Visit * Reason Onset Date Comments Refill 04/10/2024 FLUoxetine (PROZ AC) 20 MG capsule Encounter Details Date Type Department Care Team (Late st Contact Info) Description 04/10/2024 Refill [facility] [address] [facility] [place] [address] Brice Al, FRANCHISE SALES MANAGER, FLOUR BLENDER [address] [place] [address] Refill (FLUoxetine (PROZAC) 20 MG capsule ) [...] unable, route as low priority to Refill pool installer. * Macie Rizvi - 04/12/2024 11:26 AM [...] CDT Further Assistance Needed on Refill from Farm Consultant Patient is due for Qualifying Visit The [...] Age: 54 [facility] Embedded Refills, Reference: [id number], 04/10/2024 9:52:55 AM RANDYTAdelina [facility] - Primary Care [[id number]] ([id number]) YT Sharee Saldaña CMA - 04/10/2024 9:51 [...]
--- OUTSIDE RECORDS SUMMARY | 2024-05-30 11:31 | XMS_ITS | Encounter Summary ---
Author Organization [facility] Address [address], [place] [address] Care Team Providers Care Rn Acls Name Role Phone Unavailable Primary Care Provider Unavailabl e Reason for Visit * Reason Comments Refill gabapentin (NEURONTI N) 800 MG tablet [Pharmacy Med Name: GABAPENTIN 800MG TABLETS] Encounter Details Date Type Department Care Team (Late st Contact Info) Description 02/23/2024 Refill [facility] [address] [place] [phone] Helen Mena, [address] [place], [place] [phone] Refill (gabapentin (NEURONTIN) 800 MG tablet [Pharmacy [...] times a day. (changed but equivalent) [facility] Embedded Refills, Reference: [id number], 02/23/2024 5:36:57 AM CDT, Crow: Rodri Refill [facility] - Primary Care [[id number]] ([id number]) documented in this encounter Plan of Treatment Not on file documented as of this encounter Visit Diagnoses Diagnosis Chronic bilateral low back pain with bilateral sciatica documented in this encounter
--- OUTSIDE RECORDS SUMMARY | 2024-05-30 11:31 | XMS_ITS | Encounter Summary ---
Author Organization [employer] Address [address], [place] [address] Care Team Providers Care Lotteries Agent Name Role Phone No Primary/Referring, Phy Primary [...] Expiration Date Visits Re quested Visits Authorized [id number] 1 1 Encounter Details Date Type Department Care Team (Late st Contact Info) Description 04/29/2024 4:55 PM CDT Ancillary Procedure [facility] [address] [place] [address] Social History Tobacco Use Types Packs/Day Years Used Date Smoking Tobacco: Never Smokeless Tobacco: Never Alcohol Use Standard Drinks/Week Comments Not Currently 0 (1 standard drink = 0.6 oz pure alcohol) Quit 1.5 months ago. Was drinking a 6 pack and a shot at a time. [facility] Utilities Answer Date Recorded In the past 12 months has [employer], gas, oil, or water [employer] threatened to shut off services in your [...] place to sleep or slept in a mcc (including now)? No 04/28/2024 Sex and Gender [...] EXAM: XR ABD 2 VIEWS ROUTINE LOCATION: [facility] DATE: 04/29/2024 INDICATION: Nausea, abdominal discomfort, no BM, concern for SBP or ileus, NAUSEA COMPARISON: None. IMPRESSION: Nondistended loops of large and small bowel with associated air- fluid levels suggesting ileus. No free air. No evidence for renal stones. Pelvic phleboliths. Procedure Note Beny Ruvalcaba MD - 04/29/2024 EXAM: XR ABD 2 VIEWS ROUTINE LOCATION: [facility] DATE: 04/29/2024 INDICATION: Nausea, abdominal discomfort, no BM, concern for SBP or ileus,NAUSEA COMPARISON: None. IMPRESSION: Nondistended loops of large and small bowel with associatedair-fluid levels suggesting ileus. No free air. No evidence for renalstones. Pelvic phleboliths. Ayala Garcia MD RAD GD documented in this encounter Visit Diagnoses Not on filedocumented in this encounter Care Teams Lotteries Agent Relationship Specialty Start Date End Date No Primary/Referring, Phy PCP - General 04/28/24 documented as of this encounter
--- OUTSIDE RECORDS SUMMARY | 2024-05-30 11:31 | XMS_ITS | Encounter Summary ---
Author Organization [facility] Address [address], [place] [address] Care Team Providers Care Pvc Loader Name Role Phone No Primary/Referring, Phy Primary Care Provider Unavailable Encounter Details Date Type Department Care Team (Late st Contact Info) Description 08/31/2018 [facility] Department RH PERMISSION TO CUT RINGS Social [...] on filedocumented in this encounter Care Teams Pvc Loader Relationship Specialty Start Date End Date No Primary/Referring, Phy PCP - General 04/28/24 documented as of this encounter
--- OUTSIDE RECORDS SUMMARY | 2024-05-30 11:31 | XMS_ITS | Encounter Summary ---
Author Organization [facility] Address [address] [address] Care Team Providers Care Compensation Programs Manager Name Role Phone No Primary/Referring, Phy Primary Care Provider Unavailable Encounter Details Date Type Department Care Team (Late st Contact Info) Description 09/27/2018 [facility] [address] [facility] [address] [place] [address] Tran De La Vega PA-C [address] [place] [address] FMLA Social History Tobacco Use Types Packs/Day [...] on filedocumented in this encounter Care Teams Compensation Programs Manager Relationship Specialty Start Date End Date No Primary/Referring, Phy PCP - General 04/28/24 documented as of this encounter
--- OUTSIDE RECORDS SUMMARY | 2024-05-30 11:31 | XMS_ITS | Encounter Summary ---
Author Organization [facility] Address [address] [address] Care Team Providers Care Heading Repairer Name Role Phone Unavailable Primary Care Provider Unavailabl e Reason for Visit * Reason Comments Refill gabapentin (NEURONTI N) 800 MG tablet [Pharmacy Med Name: GABAPENTIN 800MG TABLETS] Encounter Details Date Type Department Care Team (Late st Contact Info) Description 03/24/2024 Refill [facility] [address] [place] [phone] Helen Mena, [address] [place], [place] [phone] Refill (gabapentin (NEURONTIN) 800 MG tablet [Pharmacy [...] but equivalent) [facility] Embedded Refills, Reference: [id number], 03/24/2024 9:11:24 AM CDT, Adelina Wadsworth [facility] Services - Primary Care [[id number]] ([id number]) documented in this encounter Plan of Treatment Not on file documented as of this encounter Visit Diagnoses Diagnosis Chronic bilateral low back pain with bilateral sciatica documented in this encounter
--- OUTSIDE RECORDS SUMMARY | 2024-05-30 11:31 | XMS_ITS | Encounter Summary ---
Author Organization formerly [facility] Address [address] [place] [id number] Care Team Providers Care Residential Door Installer Name Role Phone No Primary/Referring, Phy Primary Care Provider Unavailable Reason for Referral * Consult/Transfer Care (Routine) - New Request Specialty Diagnoses / Procedures Referred By Contac t Referred To Contact Diagnoses Ileus (HRC) Armaan Montenegro MD [address] [place] [address] Referral ID Status Reason Start Date Expiration Date V isits Requested Visits Authorized [id number] New Request 05/02/2024 07/31/2024 1 1 Scheduling Instructions Your clinician has recommended an appointment with [facility] for your ongoing patient care. You can quickly make your appointment online at [employer]/[email or web address]. You can also call [phone] for help scheduling your appointment. We suggest [...] Contact Diagnoses Bladder problem Armaan Montenegro MD [address] [place] [id number] Referral ID Status Reason Start Date Expiration Date V isits Requested Visits Authorized [id number] New Request 05/02/2024 08/01/2025 1 1 Scheduling Instructions Your clinician has recommended an appointment with a [facility]. You can quickly make your appointment online at [employer]/schedule. You can also call [phone] for help scheduling your appointment. We suggest you call your health insurance company about your coverage and benefits for this appointment. Question Answer Appointment Urgency? Non-Urgent Reason for visit? hx of bladder sling needs follow up * Procedure/Equipment (Routine) - Incomplete Specialty Diagnoses / Procedures Referred By Anika shane Referred To Contact Procedures XR Abd 2 Views Routine Ayala Garcia MD [address] [place] [id number] Referral ID Status Reason Start Date Expiration Date V isits Requested Visits Authorized [id number] Incomplete 04/29/2024 07/29/2025 1 1 * Procedure/Equipment (Routine) - Incomplete Specialty Diagnoses / Procedures Referred By Anika shane Referred To Contact Procedures XR Chest 1 View Khurram Graham PA-C [address] [place] [address] Referral ID Status Reason Start Date Expiration Date V isits Requested Visits Authorized [id number] Incomplete 04/27/2024 07/27/2025 1 1 Reason for [...] Expiration Date Visits Re quested Visits Authorized [id number] 1 1 Encounter Details Date Type Department Care Team (Late st Contact Info) Description 04/27/2024 9:05 PM CDT - 05/02/2024 5:15 PM CDT Hospital Encounter RH S[address] [place] [id number] Janie Valle MD [address] [place] [address] Michael Salter MD [address] [place] [address] Oscar Gary MD [address] [place] [address] Ayala Garcia MD [address] [place] [address] Jb Claire MD [address] [place] [address] Armaan Montenegro MD [address] [place] [address] [phone] Urinary tract infection with hematuria, site unspecified [...] and a shot at a time. [facility] Utilities Answer Date Recorded In the past 12 months has [employer], gas, oil, or water [employer] threatened to shut off services in your [...] place to sleep or slept in a residential (including now)? No 04/28/2024 Sex and Gender [...] Montenegro MD - 05/02/2024 11:03 AM CDT [facility] Medicine Discharge Summary Report () Admit Date/Time: [...] she drank a bottle of peppermint schnapps [id number] hours prior to presenting to the ED. She says she was sober for >1 year prior to that. She lives in [place] but has been staying with her son in [facility] in recent days to help take care [...] Asymptomatic at discharge. Ileus Likely from chronic [place], potentially contribution from phentermine, psych meds, and [...] trial for 1-2 months. 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 Anxiety, depression, chronic pain: - Continue home amitriptyline, baclofen, buspirone, fluoxetine, quetiapine, and gabapentin. - On chronic narcotics and ambien. DC home ambien. - Recommend she work with PCP to wean off [place], transition to buprenorphine HTN: - flight service specialist amlodipine Obesity: hx of bariatric surgery. - [...] as tolerated - No Restrictions Regular Diet Material Preparation Worker needed? No [2] Pending Results and Other [...] from the original note were not included. [facility] General Medicine Progress Note Patient Name: Peggy Kendrick : 1970 Date of Admission: 04/27/2024 9:05 PM Date of Service: 05/01/2024 Attending/Staff: Jb Claire MD Material Preparation Worker Used: no Assessment/Plan 54 y.o. old female with a history of EtOH disorder, chronic pain, and anxiety admitted for nonspecific symptoms but concern for EtOH vs medication withdrawal. Patient denies EtOH within last year except for this 1 episode where she drank a 375 mL bottle of schnapps. 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 Hospital course complicated by abdominal pain, found to have ileus on CT scan. Ileus Likely from chronic [place], potentially contribution from phentermine, psych meds, and [...] she work with PCP to wean off [place]. - Hold home phentermine. HTN: - Restart [...] >50 minutes including, but not limited to, zlo-rldl-nn-face time spent reviewing records, counseling, and coordination of care. Jb Claire MD [facility] Subjective/24 hour events Nursing notes [...] results for input(s): PH, PHV, PHCAP, PCO2, UAE8KOW, PCO2V, KFD8LUU, PO2, PO2ART, PO2V, PO2CAP in the last 72 hours. Recent Labs 04/28/24 0802 ALKPHOS 146 BILIRUBINTOT 0.7 BILIRUBINDIR 0.2 ALT 36 AST 44* TPRO 6.5 ALB 3.8 Recent Labs 04/28/24 0802 WBC 8.3 HGB 13.7 HCT 41.0 Jb Claire MD [facility] * Fatemeh Torres RN - [...] from the original note were not included. 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 - Restart home medications, with exception of [...] she work with PCP to wean off [place]. - Hold home phentermine. HTN: - Restart home amlodipine - PRN clonidine Obesity: hx of bariatric surgery. - Hold home phentermine. - No NSAIDS Diet: regular Prophylaxis: not indicated Disposition: pending resolution of ileus and tolerating diet Code Status/Goals of Care: Full Total time for the visit was 35 minutes including, but not limited to, aus-oblm-pu-face time spent reviewing records, counseling, and coordination of care. Ayala Garcia MD [facility], [facility] Phone/pager: [phone] * Nitin Cordova PA-C - 04/29/2024 6:18 PM CDT Hospital Medicine Cross Cover Regarding: Peggy Kendrick; 54 y.o. Principal Problem/Reason for Admission: Nausea Situation: Asked to f/u on abdominal x-ray. Official read notes ileus. Recommendations: NPO for bowel rest. Encourage ambulation. Avoid opioids as able. Will replace magnesium w/goal of >2. Start IV fluids for maintenance of hydration. Nitin Cordova PA-C [facility] Cross Cover 04/29/24 6:18 PM [...] from the original note were not included. [facility] Medicine Progress Note () Patient Name: Peggy Kendrick Attending: Ayala Garcia MD Date of Service: 04/29/2024 Subjective: Developed chest pain, SOB, tension, anxiety, and tremors this morning. Chest pain is on the left side, some radiation into left shoulder and arm. Holding her left chest seems to help. thread cutter tender when pushing on chest wall. 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 - PRN valium and clonidine. - Restart [...] she work with PCP to wean off [place]. - Hold home phentermine. HTN: - Restart home amlodipine - PRN clonidine Obesity: hx of bariatric surgery. - Hold home phentermine. Diet: regular Prophylaxis: not indicated Disposition: pending resolution of withdrawal symptoms Code Status/Goals of Care: Full Total time for the visit was 35 minutes including, but not limited to, mlg-zbeo-hi-face time spent reviewing records, counseling, and coordination of care. Ayala Garcia MD [facility], [facility] Phone/pager: [phone] * Fatemeh Torres RN - 04/28/2024 5:46 [...] MD Hospitalist Internal Medicine & Palliative Care [phone] Non-billable. documented in this encounter Consult Notes * Mario Alexandre PA-C - 05/01/2024 9:51 AM CDTAssociated Order(s): ADDICTION MEDICINE CONSULT [facility] Addiction Medicine Consultation 05/01/2024 Assessment, Recommendations/Plan: Peggy Kendrick is a 54 y.o. old female with a past medical history significant for AUD, chronic pain, obesity, anxiety, depression who presented to [facility] for nausea, tremor, diaphoresis after sudden [...] Chief Complaint: chronic pain and anxiety HPI: Pegyg Kendrick is a 54 y.o. old female with a past medical history significant for AUD, chronic pain, obesity, anxiety, depression who presented to [facility] for nausea, tremor, diaphoresis after sudden discontinuation of multiple medications. Addiction medicine consultation was requested from: Ayala Garcia MD Admission HPI: 54 year old woman who presents with nausea and tremors. She reports 2 days of nausea, dry heaving, tremors, and hot flushes, and sweats. She says that she drank a bottle of peppermint schnapps [id number] hours prior to presenting to the ED. She says she was sober for >1 year prior to that. She lives in [place] but has been staying with her son in [facility] in recent days to help take care [...] and L5-S1 12/29/[address] Thomson with [facility]. Was noted patient drove after receiving IV [...] 01/13/2023) 30 g 1 [DISCONTINUED] nystatin (MYCOSTATIN) 486239 UNIT/GM cream Apply topically two times a [...] need for redirection. 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 Filled Written ID Drug QTY Days Prescriber RX # Dispenser Refill Daily Dose* Pymt Type EMBEDDED LINUX DEVELOPER 04/22/2024 04/07/2024 1 Hydrocodone-Acetamin 5-325 Mg 100.00 25 Ja Dvo [id number] Wal (4596) 0/0 20.00M[place] 03/29/2024 03/09/2024 1 Hydrocodone-Acetamin 5-325 Mg 100.00 25 Ja Dvo [id number] Wal (4596) 0/0 20.[place] 03/22/2024 03/22/2024 1 Phentermine 37.5 Mg Tablet 90.00 90 Lubna Tuan [id number] Wal (4596) 0/0 Comm [facility] 03/07/2024 02/29/2024 1 Hydrocodone-Acetamin 5-325 Mg 100.00 25 Ja Dvo [id number] Wal (4596) 0/0 20.00[place] 02/29/2024 02/29/2024 1 Hydrocodone-Acetamin 5-325 Mg 28.00 7 Ja Dvo [id number] Wal (4596) 0/0 20.00 MME [place] 02/22/2024 02/22/2024 1 Gabapentin 800 Mg Tablet 360.00 90 Ch Wer [id number] Wal (4596[place] 0/1 [place] 02/04/2024 08/17/2023 1 Zolpidem Tart Er 12.5 Mg Tab 90.00 90 Ch M [id number] Wal (9198) 0/1 0.63 [place] 02/02/2024 02/02/2024 1 Hydrocodone-Acetamin 5-325 Mg 100.00 25 Ja Dvo [id number] Wal (9198) 0/0 20.00[place] 01/11/2024 01/11/2024 1 Hydrocodone-Acetamin 5-325 Mg 100.00 25 [facility] [id number] Wal (9198) 0/0 20.00[place] 01/10/2024 01/10/2024 1 Gabapentin 800 Mg Tablet 120.00 30 [facility] [id number] Wal (9198[place] 12/13/2023 12/13/2023 1 Hydrocodone-Acetamin 5-325 Mg 100.00 25 Ja Dvo [id number] Wal (9198) 0/0 20.[place] 11/16/2023 11/16/2023 1 Hydrocodone-Acetamin 5-325 Mg 100.00 25 Ja Dvo [id number] Wal (9198) 0/0 20.[place] 11/15/2023 08/17/2023 1 Zolpidem Tart Er 12.5 Mg Tab 90.00 90 Ch M [id number] Wal (9198) 0/2 0.63 [place] 10/22/2023 10/22/2023 1 Hydrocodone-Acetamin 5-325 Mg 100.00 25 Ja Dvo [id number] Wal (9198) 0/0 [place] 10/14/2023 12/17/2022 1 Gabapentin 800 Mg Tablet 360.00 90 Ca O'h [id number] Wal (9198[place] 09/25/2023 09/20/2023 1 Hydrocodone-Acetamin 5-325 Mg 100.00 30 Ja Dvo [id number] Wal (9198) 0/0 16.67[place] 09/20/2023 09/20/2023 1 Hydrocodone-Acetamin 5-325 Mg 10.00 5 Ja Dvo [id number] Wal (9198) 0/0 10.00 [place] 08/29/2023 08/25/2023 1 Hydrocodone-Acetamin 5-325 Mg 90.00 30 Ja Dvo [id number] Wal (9198) 0/0 15.00 [place] 08/17/2023 08/17/2023 1 Zolpidem Tart Er 12.5 Mg Tab 90.00 90 [facility] [id number] Wal (9198) 0/3 0.63 [place] 07/31/2023 07/21/2023 1 Hydrocodone-Acetamin 5-325 Mg 90.00 30 Ja Dvo [id number] Wal (9198) 0/0 15.00 [place] 07/22/2023 12/17/2022 1 Gabapentin 800 Mg Tablet 360.00 90 Ca O'h [id number] Wal (7857[place] 07/18/2023 07/15/2023 1 Zolpidem Tart Er 12.5 Mg Tab 30.00 30 [facility] [id number] Wal (9198) 0/0 0.63 [place] 07/03/2023 06/29/2023 1 Hydrocodone-Acetamin 5-325 Mg 90.00 30 Ja Dvo [id number] Wal (9198) 0/0 15.00 [place] 06/21/2023 01/13/2023 1 Zolpidem Tart Er 12.5 Mg Tab 30.00 30 Ca O'h [id number] Wal (9198) 2/4 0.63 [place] 06/03/2023 06/03/2023 1 Hydrocodone-Acetamin 5-325 Mg 90.00 30 Ja Dvo [id number] Wal (9198) 0/0 15.00 [place] 05/23/2023 12/17/2022 1 Zolpidem Tart Er 12.5 Mg Tab 30.00 30 Ca O'h [id number] Wal (9198) 2/4 0.63 [place] 05/07/2023 05/04/2023 1 Hydrocodone-Acetamin 5-325 Mg 90.00 30 Ja Dvo [id number] Wal (9198) 0/0 15.00 [place] Care Everywhere reviewed Mario Alexandre PA-C Addiction [facility] documented in this encounter OR Notes * H&P - Michael Salter MD - 04/28/2024 1:25 AM CDT [facility] Medicine History and Physical ASSESSMENT/PLAN: 54 year [...] as below given possibility of medication withdrawal CIKY protocol - add benzodiazepine orders if scoring [...] me personally at bedside Michael Salter MD [facility] The patient is being admitted [...] she drank a bottle of peppermint schnapps [id number] hours prior to presenting to the ED. She says she was sober for >1 year prior to that. She lives in [place] but has been staying with her son in [facility] in recent days to help take care [...] and L5-S1 12/29/[address] Thomson with [facility]. Was noted patient drove after [...] 04/27/2024 EXAM: XR CHEST 1 VIEW LOCATION: [facility] DATE: 04/27/2024 INDICATION: Cp, PAIN COMPARISON: 04/01/2019 IMPRESSION: Heart size and pulmonary vascularity normal. The lungs are clear. Old left eighth rib fracture. Right cervical rib. ECG: Personally interpreted, NSR Michael Salter MD [facility] documented in this encounter ED Notes * Khurram Graham PA-C - 04/27/2024 9:25 PM CDT [facility] Emergency Medicine Visit Note Chief Complaint: Nausea [...] her medication but is 1 hour from [place]. She stated her son picks her up. [...] PA-C ED Course as of 04/28/24 0127 [facility] Apr 27, [id number] Lab results reviewed with patient, with magnesium of 1.5, magnesium ordered. Patient is calm now and stated she feels better. Patient is no longer hyperventilating and restless [MT] 2243 Patient signed out pending reevaluation and better than discharge. [MT] 2310 ATTENDING: I personally saw the patient, performed calvin elements of the visit, and supervised patient care with the senior clinician. MDM: Peggy Kendrick is a 54 y.o. [...] BLOOD CULTURE Routine 04/28/2024 1:00 AM CDT [address]654 LACTATE, WHOLE BLOOD Routine 04/28/2024 12:42 AM [...] PERFORM (LAB) Done 05/02/2024 10:00 AM CDT [facility] Other Specimen Type IV Start / Unknown 05/02/2024 7:51 AM CDT 05/02/2024 8:43 AM CDT Armaan Montenegro MD LAB_[address] [address], [facility] * Basic Metabolic Panel (05/02/2024 7:51 AM CDT) Pathologist [facility] Sodium 136 136 - 145 mmol/L 05/02/2024 8:32 AM [facility] Potassium 4.3 3.5 - 5.1 mmol/L 05/02/2024 8:32 AM [facility] Comment:Specimen slightly he molyzed. Hemolysis may affect result. Chloride 107 98 - 109 mmol/L 05/02/2024 8:32 AM [facility] CO2 21 20 - 29 mmol/L 05/02/2024 8:32 AM [facility] Anion Gap 8 6 - 16 mmol/L 05/02/2024 8:32 AM [facility] Calcium 8.7 8.4 - 10.4 mg/dL 05/02/2024 8:32 AM [facility] BUN 17 7 - 26 mg/dL 05/02/2024 8:32 AM [facility] Creatinine 0.71 0.55 - 1.02 mg/dL 05/02/2024 8:32 AM [facility] Glucose 95 70 - 100 mg/dL 05/02/2024 8:32 AM [facility] Comment:The given reference range is for the fasting state. Non-fasting reference range for glucose is 70 - 180 mg/dL. GFR, Estimated >60 >60 mL/min/1.7 3m2 05/02/2024 8:32 AM [facility] Blood Venipuncture / Unknown 05/02/2024 7:51 AM CDT 05/02/2024 8:03 AM CDT Jb Claire MD LAB_1 Performing Organization Address City/[facility]/ZIP Co de Phone Number [address] * (ABNORMAL) C-Reactive Protein (05/01/2024 9:22 AM CDT) C-Reactive Protein 0.7(H) 0.0 - 0.5 mg/dL 05/01/2024 2:16 PM [facility] Blood Venipuncture / Unknown 05/01/2024 9:22 AM CDT 05/01/2024 9:27 AM CDT Jb Claire MD LAB_1 [place] [address] * Magnesium (05/01/2024 9:22 AM CDT) Magnesium 2.0 1.6 - 2.6 mg/dL 05/01/2024 10:28 AM [facility] Blood Venipuncture / Unknown 05/01/2024 9:22 AM CDT 05/01/2024 9:27 AM CDT Ayala Garcia MD LAB_[address] * (ABNORMAL) Basic Metabolic Panel (05/01/2024 9:22 AM CDT) Sodium 138 136 - 145 mmol/L 05/01/2024 10:28 AM [facility] Potassium 3.9 3.5 - 5.1 mmol/L 05/01/2024 10:28 AM [facility] Chloride 108 98 - 109 mmol/L 05/01/2024 10:28 AM [facility] CO2 22 20 - 29 mmol/L 05/01/2024 10:28 AM [facility] Anion Gap 8 6 - 16 mmol/L 05/01/2024 10:28 AM [facility] Calcium 9.0 8.4 - 10.4 mg/dL 05/01/2024 10:28 AM [facility] BUN 9 7 - 26 mg/dL 05/01/2024 10:28 AM [facility] Creatinine 0.72 0.55 - 1.02 mg/dL 05/01/2024 10:28 AM [facility] Glucose 106(H) 70 - 100 mg/dL 05/01/2024 10:28 AM [facility] Comment:The given reference range is for the fasting state. Non-fasting reference range for glucose is 70 - 180 mg/dL. GFR, Estimated >60 >60 mL/min/1.7 3m2 05/01/2024 10:28 AM [facility] Blood Venipuncture / Unknown 05/01/2024 9:22 AM CDT 05/01/2024 9:27 AM CDT Ayala Garcia MD LAB_1 Performing Organization Address [facility]/ZIP Co de Phone Number [address] * MAGNESIUM (04/30/2024 9:55 AM CDT) Magnesium 2.0 1.6 - 2.6 mg/dL 04/30/2024 10:31 AM [facility] Blood Venipuncture / Unknown 04/30/2024 9:55 AM CDT 04/30/2024 10:02 AM CDT Ayala Garcia MD LAB_1 Performing Organization Address [facility]/[address] * (ABNORMAL) Basic Metabolic Panel (04/30/2024 9:55 AM CDT) Sodium 137 136 - 145 mmol/L 04/30/2024 10:31 AM [facility] Potassium 4.2 3.5 - 5.1 mmol/L 04/30/2024 10:31 AM [facility] Comment:Specimen slightly he molyzed. Hemolysis may affect result. Chloride 110(H) 98 - 109 mmol/L 04/30/2024 10:31 AM [facility] CO2 17(L) 20 - 29 mmol/L 04/30/2024 10:31 AM [facility] Anion Gap 10 6 - 16 mmol/L 04/30/2024 10:31 AM [facility] Calcium 8.4 8.4 - 10.4 mg/dL 04/30/2024 10:31 AM [facility] BUN 13 7 - 26 mg/dL 04/30/2024 10:31 AM [facility] Creatinine 0.85 0.55 - 1.02 mg/dL 04/30/2024 10:31 AM [facility] Glucose 98 70 - 100 mg/dL 04/30/2024 10:31 AM [facility] Comment:The given reference range is for the fasting state. Non-fasting reference range for glucose is 70 - 180 mg/dL. GFR, Estimated >60 >60 mL/min/1.7 3m2 04/30/2024 10:31 AM CDT [facility] Blood Venipuncture / Unknown 04/30/2024 9:55 AM CDT 04/30/2024 10:02 AM CDT Ayala Garcia MD LAB_1 Performing Organization Address City/[facility]/ZIP Co de Phone Number [address] * Glucose, Whole Blood POCT (04/30/2024 6:04 AM CDT) Glucose, Whole Blood 102 70 - 180 mg/dL 04/30/2024 6:05 AM T [facility] POCT Comment 1 MD/RN Notified 04/30/2024 6:05 AM T [facility] Performing Location RCLab S95 04/30/2024 6:05 AM CDT [facility] Blood 04/30/2024 6:04 AM CDT 04/30/2024 6:05 AM CDT Ayala Garcia MD LAB_1 Performing Organization Address [facility] [place] [address], [facility] * Glucose, Whole Blood POCT (04/30/2024 2:23 AM CDT) Glucose, Whole Blood 107 70 - 180 mg/dL 04/30/2024 2:24 AM T [facility] POCT Comment 1 MD/RN Notified 04/30/2024 2:24 AM T [facility] Performing Location RCLab S95 04/30/2024 2:24 AM CDT [facility] Blood 04/30/2024 2:23 AM CDT 04/30/2024 2:24 AM CDT Ayala Garcia MD LAB_1 Performing Organization Address City/[facility]/[place] [address], [facility] * IV Insertion, LST Perform (04/29/2024 9:26 PM CDT) IV INSERTION, LST PERFORM (LAB) Done 04/30/2024 12:00 AM CDT [facility] Other Specimen Type IV Start / Unknown 04/29/2024 9:26 PM CDT 04/29/2024 10:14 PM CDT Ayala Garcia MD LAB_[address] [address], [facility] * XR Abd 2 Views Routine (04/29/2024 5:19 PM CDT) Anatomical Region Laterality Modality Abdomen Computed Radiogr aphy 04/29/2024 5:19 PM CDT Narrative 04/29/2024 6:09 PM CDT EXAM: XR ABD 2 VIEWS ROUTINE LOCATION: [facility] DATE: 04/29/2024 INDICATION: Nausea, abdominal discomfort, no BM, concern for SBP or ileus, NAUSEA COMPARISON: None. IMPRESSION: Nondistended loops of large and small bowel with associated air- fluid levels suggesting ileus. No free air. No evidence for renal stones. Pelvic phleboliths. Procedure Note Beny Ruvalcaba MD - 04/29/2024 EXAM: XR ABD 2 VIEWS ROUTINE LOCATION: [facility] DATE: 04/29/2024 INDICATION: Nausea, abdominal discomfort, no BM, concern for SBP or ileus,NAUSEA COMPARISON: None. IMPRESSION: Nondistended loops of large and small bowel with associatedair-fluid levels suggesting ileus. No free air. No evidence for renalstones. Pelvic phleboliths. Ayala Garcia MD RAD GD * Lipase (04/29/2024 7:31 AM CDT) Lipase 28 8 - 78 U/L 04/29/2024 10:11 AM CDT [facility] Blood Venipuncture / Unknown 04/29/2024 7:31 AM CDT 04/29/2024 7:36 AM CDT Ayala Garcia MD LAB_[address] * MAGNESIUM (04/29/2024 7:31 AM CDT) Magnesium 1.9 1.6 - 2.6 mg/dL 04/29/2024 9:37 AM [facility] Blood Venipuncture / Unknown 04/29/2024 7:31 AM CDT 04/29/2024 7:36 AM CDT Ayala Garcia MD LAB_1 Performing Organization Address City/[facility]/ZIP Co de Phone Number [address] * Troponin I (04/29/2024 7:31 AM CDT) Troponin I 0.01 0.00 - 0.03 ng/mL 04/29/2024 8:08 AM [facility] Blood Venipuncture / Unknown 04/29/2024 7:31 AM CDT 04/29/2024 7:36 AM CDT Michael Salter MD LAB_1 Performing Organization Address City/[facility]/ZIP Co de Phone Number [address] * (ABNORMAL) Basic Metabolic Panel (04/29/2024 7:31 AM CDT) Sodium 140 136 - 145 mmol/L 04/29/2024 8:04 AM [facility] Potassium 3.5 3.5 - 5.1 mmol/L 04/29/2024 8:04 AM [facility] Chloride 110(H) 98 - 109 mmol/L 04/29/2024 8:04 AM [facility] CO2 22 20 - 29 mmol/L 04/29/2024 8:04 AM [facility] Anion Gap 8 6 - 16 mmol/L 04/29/2024 8:04 AM [facility] Calcium 8.7 8.4 - 10.4 mg/dL 04/29/2024 8:04 AM [facility] BUN 11 7 - 26 mg/dL 04/29/2024 8:04 AM [facility] Creatinine 0.74 0.55 - 1.02 mg/dL 04/29/2024 8:04 AM [facility] Glucose 118(H) 70 - 100 mg/dL 04/29/2024 8:04 AM [facility] Comment:The given reference range is for the fasting state. Non-fasting reference range for glucose is 70 - 180 mg/dL. GFR, Estimated >60 >60 mL/min/1.7 3m2 04/29/2024 8:04 AM [facility] Blood Venipuncture / Unknown 04/29/2024 7:31 AM CDT 04/29/2024 7:36 AM CDT Oscar Gary MD LAB_1 Performing Organization Address [facility]/ZIP Co de Phone Number [address] * IV Insertion, LST Perform (04/28/2024 6:42 PM CDT) Pathologist [facility] IV INSERTION, LST PERFORM (LAB) Done 04/29/2024 12:00 AM [facility] Other Specimen Type IV Start / Unknown 04/28/2024 6:42 PM CDT 04/28/2024 10:11 PM CDT Oscar Gary MD LAB_1 Performing Organization Address [facility]/ZIP Co de Phone Number [address] * (ABNORMAL) Liver Panel(Hepatic Function Panel) (04/28/2024 8:02 AM CDT) Alkaline Phosphatase 146 40 - 150 U/L 04/28/2024 8:54 AM [facility] Bilirubin, Total 0.7 0.2 - 1.2 mg/dL 04/28/2024 8:54 AM [facility] Bilirubin, Direct 0.2 0.0 - 0.5 mg/dL 04/28/2024 8:54 AM [facility] AST (SGOT) 44(H) 10 - 40 U/L 04/28/2024 8:54 AM [facility] ALT (SGPT) 36 <=55 U/L 04/28/2024 8:54 AM CDT [facility] Protein, Total 6.5 6.4 - 8.3 g/dL 04/28/2024 8:54 AM CDT [facility] Albumin 3.8 3.5 - 5.0 g/dL 04/28/2024 8:54 AM CDT [facility] Blood Venipuncture / Unknown 04/28/2024 8:02 AM CDT 04/28/2024 8:20 AM CDT Michael Salter MD LAB_1 Performing Organization Address City/[facility]/ZIP Co de Phone Number [address] * Phosphorus (04/28/2024 8:02 AM CDT) Phosphorus 3.1 2.3 - 4.7 mg/dL 04/28/2024 8:54 AM CDT [facility] Blood Venipuncture / Unknown 04/28/2024 8:02 AM CDT 04/28/2024 8:20 AM CDT Michael Salter MD LAB_1 Performing Organization Address [facility] Co de Phone Number [address] * Magnesium (04/28/2024 8:02 AM CDT) Magnesium 2.0 1.6 - 2.6 mg/dL 04/28/2024 8:54 AM CDT [facility] Blood Venipuncture / Unknown 04/28/2024 8:02 AM CDT 04/28/2024 8:20 AM CDT Michael Salter MD LAB_1 Performing Organization Address [facility] Co de Phone Number [address] * (ABNORMAL) Basic Metabolic Panel (04/28/2024 8:02 AM CDT) Sodium 138 136 - 145 mmol/L 04/28/2024 8:54 AM [facility] Potassium 3.8 3.5 - 5.1 mmol/L 04/28/2024 8:54 AM [facility] Comment:Specimen slightly he molyzed. Hemolysis may affect result. Chloride 106 98 - 109 mmol/L 04/28/2024 8:54 AM [facility] CO2 19(L) 20 - 29 mmol/L 04/28/2024 8:54 AM [facility] Anion Gap 13 6 - 16 mmol/L 04/28/2024 8:54 AM [facility] Calcium 8.7 8.4 - 10.4 mg/dL 04/28/2024 8:54 AM [facility] BUN 10 7 - 26 mg/dL 04/28/2024 8:54 AM [facility] Creatinine 0.72 0.55 - 1.02 mg/dL 04/28/2024 8:54 AM [facility] Glucose 103(H) 70 - 100 mg/dL 04/28/2024 8:54 AM [facility] Comment:The given reference range is for the fasting state. Non-fasting reference range for glucose is 70 - 180 mg/dL. GFR, Estimated >60 >60 mL/min/1.7 3m2 04/28/2024 8:54 AM [facility] Blood Venipuncture / Unknown 04/28/2024 8:02 AM CDT 04/28/2024 8:20 AM T Michael Salter MD LAB_1 Performing Organization Address City/[facility] Co de Phone Number [id number] [place] [address] * Complete Blood Count-No Diff (04/28/2024 8:02 AM CDT) WBC 8.3 3.5 - 10.5 x10(9)/L 04/28/2024 8:36 AM [facility] RBC 4.72 3.90 - 5.03 x10(12)/L 04/28/2024 8:36 AM [facility] Hemoglobin 13.7 12.0 - 15.5 g/dL 04/28/2024 8:36 AM [facility] HCT 41.0 34.9 - 44.5 % 04/28/2024 8:36 AM [facility] MCV 86.9 80.0 - 100.0 fL 04/28/2024 8:36 AM [facility] MCH 29.0 27.6 - 33.3 pg 04/28/2024 8:36 AM [facility] MCHC 33.4 31.5 - 35.2 g/dL 04/28/2024 8:36 AM [facility] RDW 14.6 11.9 - 15.5 % 04/28/2024 8:36 AM [facility] Platelets 275 150 - 450 x10(9)/L 04/28/2024 8:36 AM [facility] Automated NRBC 0 <=0 /100 WBC 04/28/2024 8:36 AM [facility] Blood Venipuncture / Unknown 04/28/2024 8:02 AM CDT 04/28/2024 8:20 AM CDT Michael Salter MD LAB_1 Performing Organization Address City/[facility]/ZIP Co de Phone Number [address] * Blood Culture (04/28/2024 1:00 AM CDT) Blood Culture No Growth at 5 Days RH LAB ETEST METHOD 05/03/2024 2:00 AM CDT [facility] Blood VENIPUNCTURE / Unknown Venipuncture / Unknown 04/28/2024 1:00 AM CDT 04/28/2024 1:08 AM CDT Janie Valle MD LAB_[address] * Blood Culture (04/28/2024 1:00 AM CDT) Blood Culture No Growth at 5 Days RH LAB ETEST METHOD 05/03/2024 2:00 AM CDT [facility] Blood VENIPUNCTURE / Unknown Venipuncture / Unknown 04/28/2024 1:00 AM CDT 04/28/2024 1:08 AM CDT Janie Valle MD LAB_1 Performing Organization Address [facility] Phone Number [address] * Lactate Panel, Venous POCT (04/28/2024 12:42 AM CDT) Lactate, Whole Blood 0.60 0.50 - 2.00 mmol/L 04/28/2024 12:44 AM CDT [facility] PO2, Venous 42 30 - 50 mmHg 04/28/2024 12:44 AM CDT [facility] Performing Location [facility] ED E 04/28/2024 12:44 AM CDT [facility] Blood 04/28/2024 12:4 2 AM CDT 04/28/2024 12:44 AM CDT Janie Valle MD LAB_1 Performing Organization Address [facility] Phone [address] * Troponin I (04/27/2024 11:36 PM CDT) Troponin I <0.01 0.00 - 0.03 ng/mL 04/28/2024 12:17 AM CDT [facility] Blood Venipuncture / Unknown 04/27/2024 11:36 PM CDT 04/27/2024 11:42 PM CDT Janie Valle MD LAB_1 Performing Organization Address [facility] de Phone Number [address] * (ABNORMAL) Urine Culture (04/27/2024 11:35 PM CDT) Urine Culture Growth(A) 04/29/2024 5:07 PM T [facility] Urine Culture >100,000 CFU/mL Mixed Bacterial Growth 04/29/2024 5:07 PM CDT [facility] Comment:Mixed Bacterial Grow th indicates the specimen is likely contaminated at collection with urogenital and/or fecal jen. Urine URINE SPECIMEN COLLECTION, CLEAN CATCH / Unknown Non-blood Collection / Unknown 04/27/2024 11:35 PM CDT 04/28/2024 12:47 AM CDT Khurram Graham PA-C LAB_[address] [address], [facility] * (ABNORMAL) UA Conditional UC: Clean Catch (04/27/2024 11:35 PM CDT) Urine Culture Comment Urinalysis results meet criteria for reflex, culture performed. 04/28/2024 12:47 AM [facility] Urine Color Yellow 04/28/2024 12:47 AM [facility] Urine Clarity Turbid(A) Clear 04/28/2024 12:47 AM [facility] Specific Horner, Urine 1.026 <1.030 04/28/2024 12:47 AM [facility] PH Urine 6.0 5.0 - 8.0 04/28/2024 12:47 AM [facility] Protein, Urine Qual (mg/dL) 20 Negative, 10 , 20 04/28/2024 12:47 AM [facility] Glucose Urine Qual (mg/dL) Normal (Negative) Normal (Negative), 30 , 50 04/28/2024 12:47 AM [facility] Ketones, Urine (mg/dL) 40(A) Negative, Trace 04/28/2024 12:47 AM [facility] Urobilinogen, Urine (EU/dL) Normal (Negative) Normal (Negative) 04/28/2024 12:47 AM [facility] Bilirubin Urine (mg/dL) Negative Negative 04/28/2024 12:47 AM [facility] Blood, Urine (mg/dL) 0.50 (Moderate)(A) Negative, 0.03 (Trace) 04/28/2024 12:47 AM [facility] Nitrite Urine Negative Negative 04/28/2024 12:47 AM [facility] Leukocyte Esterase, Urine (Mandi/uL) 500 (Large)(A) Negative, 25 (Trace) 04/28/2024 12:47 AM [facility] Red Blood Cells 6(H) 0 - 3 /HPF 04/28/2024 12:47 AM CDT [facility] White Blood Cells 34(H) 0 - 5 /HPF 04/28/2024 12:47 AM CDT [facility] Bacteria Few(A) None Seen /HPF 04/28/2024 12:47 AM [facility] Squamous Epithelial Cells Occasional None Seen, Occasional, Few /HPF 04/28/2024 12:47 AM [facility] Mucus Present(A) None Seen /HPF 04/28/2024 12:47 AM CDT [facility] Urine Source Clean Catch 04/28/2024 12:47 AM CDT [facility] Urine URINE SPECIMEN COLLECTION, CLEAN CATCH / Unknown Non-blood Collection / Unknown 04/27/2024 11:35 PM CDT 04/27/2024 11:42 PM CDT Narrative [facility] - 04/28/2024 12:47 AM CDT The qualitative interpretive guidance provided (e.g., small, moderate, large) is intended to aid in quantitative result interpretation. It is not itself an FDA-cleared test result. Khurram Graham PA-C LAB_1 Performing Organization Address City/State/[facility] [place] [address], [facility] * XR Chest 1 View (04/27/2024 10:37 PM CDT) Anatomical Region Laterality Modality Chest, Lung Computed Radiogr aphy 04/27/2024 10:3 7 PM CDT Narrative 04/27/2024 10:48 PM CDT EXAM: XR CHEST 1 VIEW LOCATION: [facility] DATE: 04/27/2024 INDICATION: Cp, PAIN COMPARISON: 04/01/2019 IMPRESSION: Heart size and pulmonary vascularity normal. The lungs are clear. Old left eighth rib fracture. Right cervical rib. Procedure Note Jesus Sheets MD - 04/27/2024 EXAM: XR CHEST 1 VIEW LOCATION: [facility] DATE: 04/27/2024 INDICATION: Cp, PAIN COMPARISON: 04/01/2019 IMPRESSION: Heart size and pulmonary vascularity normal. The lungs areclear. Old left eighth rib fracture. Right cervical rib. Khurram Graham PA-C RAD GD * Troponin I (04/27/2024 9:36 PM CDT) Pathologist [facility] Troponin I <0.01 0.00 - 0.03 ng/mL 04/27/2024 10:09 PM CDT [facility] Blood Venipuncture / Unknown 04/27/2024 9:36 PM CDT 04/27/2024 9:38 PM CDT Khurram Graham PA-C LAB_1 Performing Organization Address [facility]/ZIP Co de Phone Number [address] * (ABNORMAL) Magnesium (04/27/2024 9:36 PM CDT) Pathologist [facility] Magnesium 1.5(L) 1.6 - 2.6 mg/dL 04/27/2024 10:07 PM CDT [facility] Blood Venipuncture / Unknown 04/27/2024 9:36 PM CDT 04/27/2024 9:38 PM CDT Donnie Felix MD LAB_1 Performing Organization Address [facility] Co de Phone Number [address] * (ABNORMAL) Liver Panel (Hepatic Function Panel) (04/27/2024 9:36 PM CDT) Pathologist [facility] Alkaline Phosphatase 156(H) 40 - 150 U/L 04/27/2024 10:07 PM CDT [facility] Bilirubin, Total 1.0 0.2 - 1.2 mg/dL 04/27/2024 10:07 PM CDT [facility] Bilirubin, Direct 0.4 0.0 - 0.5 mg/dL 04/27/2024 10:07 PM T [facility] AST (SGOT) 47(H) 10 - 40 U/L 04/27/2024 10:07 PM CDT [facility] ALT (SGPT) 33 <=55 U/L 04/27/2024 10:07 PM CDT [facility] Protein, Total 6.9 6.4 - 8.3 g/dL 04/27/2024 10:07 PM [facility] Albumin 4.1 3.5 - 5.0 g/dL 04/27/2024 10:07 PM [facility] Blood Venipuncture / Unknown 04/27/2024 9:36 PM CDT 04/27/2024 9:38 PM CDT Donnie Felix MD LAB_1 Performing Organization Address [facility] Co de Phone Number [address] * Alcohol (ethyl) Level (04/27/2024 9:36 PM CDT) Ethyl Alcohol <0.01 <=0.01 g/dL 04/27/2024 10:07 PM [facility] Blood Venipuncture / Unknown 04/27/2024 9:36 PM CDT 04/27/2024 9:38 PM CDT [facility] 04/27/2024 10:07 PM CDT For medical purposes only; not valid for forensic, legal, or employment use. Donnie Felix MD LAB_1 Performing Organization Address [facility] Phone Number [address] * (ABNORMAL) Basic Metabolic Panel (04/27/2024 9:36 PM CDT) Sodium 136 136 - 145 mmol/L 04/27/2024 10:07 PM [facility] Potassium 4.4 3.5 - 5.1 mmol/L 04/27/2024 10:07 PM [facility] Comment:Specimen slightly he molyzed. Hemolysis may affect result. Chloride 103 98 - 109 mmol/L 04/27/2024 10:07 PM [facility] CO2 16(L) 20 - 29 mmol/L 04/27/2024 10:07 PM [facility] Anion Gap 17(H) 6 - 16 mmol/L 04/27/2024 10:07 PM [facility] Calcium 9.0 8.4 - 10.4 mg/dL 04/27/2024 10:07 PM [facility] BUN 16 7 - 26 mg/dL 04/27/2024 10:07 PM [facility] Creatinine 0.74 0.55 - 1.02 mg/dL 04/27/2024 10:07 PM [facility] Glucose 145(H) 70 - 100 mg/dL 04/27/2024 10:07 PM [facility] Comment:The given reference range is for the fasting state. Non-fasting reference range for glucose is 70 - 180 mg/dL. GFR, Estimated >60 >60 mL/min/1.7 3m2 04/27/2024 10:07 PM [facility] Blood Venipuncture / Unknown 04/27/2024 9:36 PM CDT 04/27/2024 9:38 PM CDT Donnie Felix MD LAB_1 Performing Organization Address City/State/[facility] [place] [address], [facility] * (ABNORMAL) Complete Blood Count -no Diff (04/27/2024 9:02 PM CDT) WBC 13.7(H) 3.5 - 10.5 x10(9)/L 04/27/2024 9:10 PM [facility] RBC 5.53(H) 3.90 - 5.03 x10(12)/L 04/27/2024 9:10 PM [facility] Hemoglobin 15.7(H) 12.0 - 15.5 g/dL 04/27/2024 9:10 PM [facility] HCT 48.2(H) 34.9 - 44.5 % 04/27/2024 9:10 PM [facility] MCV 87.2 80.0 - 100.0 fL 04/27/2024 9:10 PM [facility] MCH 28.4 27.6 - 33.3 pg 04/27/2024 9:10 PM [facility] MCHC 32.6 31.5 - 35.2 g/dL 04/27/2024 9:10 PM [facility] RDW 14.2 11.9 - 15.5 % 04/27/2024 9:10 PM [facility] Platelets 300 150 - 450 x10(9)/L 04/27/2024 9:10 PM CDT [facility] Automated NRBC 0 <=0 /100 WBC 04/27/2024 9:10 PM CDT [facility] Blood Venipuncture / Unknown 04/27/2024 9:02 PM CDT 04/27/2024 9:06 PM CDT Donnie Felix MD LAB_1 Performing Organization Address [facility] Co de Phone Number [facility] [address] [place] [address], [facility] * ECG 12-LEAD ROUTINE (04/27/2024 8:43 PM CDT) Ventricular Rate 109 BPM [facility] Atrial Rate 109 BPM [facility] P-R Interval 138 ms [facility] QRS Duration 74 ms [facility] QT 332 ms [facility] QTc 447 ms [facility] P [place] 80 degrees MUSE [facility] R [place] 23 degrees MUSE [facility] T [place] 48 degrees [facility]USE [facility] 04/27/2024 8:43 PM CDT Narrative [facility] - 04/28/2024 8:30 AM CDT Poor data quality, interpretation may be adversely affected Sinus tachycardia Nonspecific ST abnormality Abnormal ECG When compared with ECG of 21-MAY-2020 18:41, No significant change was found Confirmed by Shaquille Lanier ([id number]) on 04/28/2024 8:30:17 AM Procedure Note Shaquille Lanier MD - 04/28/2024 Poor data quality, interpretation may be adversely affected Sinus tachycardia Nonspecific ST abnormality Abnormal ECG When compared with ECG of 21-MAY-2020 18:41, No significant change was found Confirmed by Shaquille Lanier ([id number]) on 04/28/2024 8:30:17 AM Lety Alvarez MD EKG Performing Organization Address [facility] Co de Phone Number [address] [address] [place] [address] * Glucose, Whole Blood POCT (04/27/2024 8:32 PM CDT) Glucose, Whole Blood 130 70 - 180 mg/dL 04/27/2024 8:34 PM CDT [facility] Performing Location [facility] ED T 04/27/2024 8:34 PM CDT [facility] Blood 04/27/2024 8:32 PM CDT 04/27/2024 8:34 PM CDT Interface Provider LAB_1 Performing Organization Address City/State/[facility] de Phone Number [facility] [address] [place] [address], [facility] documented in this encounter Visit [...] Joshua RN - 05/01/2024 7:03 AM CDT [facility] Plan of Care Note Assessment: pain, comfort, [...] Joshua RN - 04/30/2024 7:20 AM CDT [facility] Plan of Care Note Assessment: pain, comfort Plan: assess and intervene as needed Subjective: Objective: A/Ox4. VSS on room air. Denies CP, SOB. N/V continuous. Lightheadedness when up with activity. Educated pt about calling staff for assistance. Numbness and tingling in back. Pain 06/20. Medicated pain per DEC. CIWAs 3-4. Able to make needs known. Sleeping between cares. Call light within r each. [phone] --- End of Report --- * Initial Assessments - Tai Mancuso RN - 04/29/2024 1:02 PM CDT [facility] Care Management Initial Assessment Plan: Care Team Actions Needed: MD medical clearance, discharge orders Actual patient/family choice(s):: Home Expected discharge date: 04/30/2024 Anticipated Discharge Plan: Home Admission Info: Chart Reviewed: discussed with patient, discussed with interdisciplinary team Contacts: Emergency Contacts Website Developer (Rel.) Home Phone Work Phone Mobile Phone Florencio Kendrick (Spouse) [phone] MaryDavidLuanne (Mother) [phone] -- -- Cognitive capacity prior to admission: [...] Private Vehicle Primary Care: Primary Care Clinic: [facility] Primary Care Physician: Agustin Kelly MD Functional [...] patient, introduced myself and my role as director of casework services/social work lecturer. CM verified demographics, PCP and emergency contacts. [...] their discharge: Medical Clearance, Addiction Medicine Consult, [facility] Community Resources: N/A Anticipated transport at time [...] intake, and about mental health whenasked by marketing copywriter. The patient stated that prior to this [...] a year now. Active listening provided by marketing copywriter. CM/SW Team will continue to follow for coordination of care, discharge planning and offer support as needed. Tai Mancuso RN * Plan of Care - Annie Hernandez RN - 04/29/2024 7:34 AM CDT [facility] Plan of Care Note Assessment: Plan of care Plan: Continue to monitor, intervene as needed Subjective: Pt reports mild nausea, BREWSTER and back pain Objective: Pt alert, withdrawn. Mild relief from nausea with prn anti-emetics. BREWSTER and back pain managed with [place] and warm packs. Mild tremor noted to [...] Hernandez RN - 04/29/2024 5:39 AM CDT [facility]. Practitioner Notified Note Name of Practitioner notified: Caitlin Time of Practitioner notification: 5:40 AM Reason: Pt c/o left side CP and feeling SOB. BP 159/102 HR 82, 97% on room air. Feels anxious. Similar symptoms upon arrival to ED. Please advise. Response: Additional labs ordered. PRN valium per [facility] protocol. * Plan of Care - Daniel Mensah, [facility] - 04/28/2024 8:13 AM CDT [facility] Medication History Note 1. Source(s) of [...] Fischer RN - 04/28/2024 4:58 AM CDT [facility] Plan of Care Note Assessment: Safety, pain [...] 2.5 mg 2.5 mg, Intravenous, ONCE, On Melisas 04/27/24 at 2145, For 1 dose, Administer [...] Discontinued 0944 (Given - Provider: Fatemeh Torres RN)204 (Given [...] Tami Grijalva RN)1654 (Given - Provider: Tami Grijalav RN)2127 (Given - Provider: Prosper Castellanos RN) [...] - Provider: Tami Grijalva RN) nystatin (MYCOSTATIN) [id number] UNIT/GM topical powder Topical, BID PRN, Other, [...] Line - metoclopramide 1216 (Given - Provider: Taim Grijalva RN) sodium chloride (OCEAN) 0.65 % nasal solution 1 Ringling 1 Ringling, Both Nostrils, Q2H PRN, Dry Nose, Starting [...] metoclopramide documented in this encounter Care Teams Residential Door Installer Relationship Specialty Start Date End Date No Primary/Referring, Phy PCP - General 04/28/24 documented as of this encounter
--- OUTSIDE RECORDS SUMMARY | 2024-05-30 11:31 | XMS_ITS | Encounter Summary ---
Author Organization [employer] Address [address] [place] [address] Care Team Providers Care Packaging Inspector Name Role Phone No Primary/Referring, Phy [...] on filedocumented in this encounter Care Teams Packaging Inspector Relationship Specialty Start Date End Date No Primary/Referring, Phy PCP - General 04/28/24 documented as of this encounter
--- OUTSIDE RECORDS SUMMARY | 2024-05-30 11:32 | XMS_ITS | Clinical Summary ---
Author Organization [employer] [facility] Address [place], [place] [address] Care Team Providers Care Last Model Department Supervisor Name Role Phone Ayala Benites Primary Care Provider [phone] Allergies No known active allergies Medications Medication [...] and Rehabilitation Specilialist of the [facility] pain [facility]. See scanned images for further [...] Comments Blood Pressure 136/80 09/04/2019 1:45 PM CUSTOMER ENGINEER Pulse 102 09/04/2019 1:45 PM CUSTOMER ENGINEER Temperature 36.6 ??C (97.8 ??F) 08/09/2020 1:26 PM CD T Respiratory Rate 18 09/04/2019 1:45 PM CUSTOMER ENGINEER Oxygen Saturation 98% 08/09/2020 1:26 PM CDT [...] [employer] Implanted Type Area Capsule Machine Operator Device Identifier Shelf Expiration Date Model / Serial / Lot Seamguard Reinforcement [id number] - [id number] Implanted:Qty: 2 on 03/22/2013 by Sergio Early MD at [facility] N/A: Stomach [employer] 11/10/2015 [id number] # / / [id number] Seamguard Reinforcement Gec60 - [id number] Implanted:Qty: 1 on 03/22/2013 by Sergio Early MD at [facility] N/A: Stomach [employer] 11/10/2015 [id number] # / / [id number] [employer] [id number] [employer] - [id number] Implanted:Qty: 1 on 07/04/2014 by Lukas Mcadams DPM at [facility] Right: Foot [employer] [id number]# / / Description:Load #4-3 2013 [employer] [id number] [employer]nis [employer] - [id number] Implanted:Qty: 1 on 07/04/2014 by Lukas Mcadams DPM at [facility] Right: Foot [employer] [id number]# / / Description:Load #4-3 2013 Sling Pelvic Exact Retropubic Continence - [id number] Implanted:Qty: 1 on 02/04/2015 by Naveed Jimenes MD at [facility] N/A: Vagina [employer] 11/10/2015 [id number]# / / [id number] Sling Pelvic Lynx Suprapubic Continence - [id number] Implanted:Qty: 1 on 04/05/2017 by Cm Lucio MD at [facility] N/A: Vagina [facility] 02/05/2018 [id number]# / / [id number] Explanted Type Area Capsule Machine Operator Device Identifier Shelf Expiration Date Model / Serial / Lot Wire Kirs .[id number] Smooth6/Pk - [id number] Explanted:Qty: 1 on 07/04/2014 by Lukas Mcadams DPM at [facility] Right: Foot [employer] 0# / / Description:Load #2-6 K-Wire [id number] Strl Sgl Use - [id number] Explanted:Qty: 3 on 07/04/2014 by Lukas Mcadams DPM at [facility] Right: Foot [employer] [id number]# / / Description:load#4-3 014 Procedures Procedure Name Priority Date/Time Associated Diagnosis Comments SCAN-COLONOSCOPY 03/15/2024 1:30 PM CDT LIPID PANEL W REFLEX MEASURED LDL Routine 11/05/2016 2:35 PM CUSTOMER ENGINEER Gastric bypass status for obesity ANTI HIV 1/2 Routine 05/01/2016 11:48 AM CDT Screening for STD (sexually transmitted disease) ANTI HCV Routine 05/01/2016 11:48 AM CDT Screening for STD (sexually transmitted disease) from Last 3 Months or Most Recently Relevant to Health Maintenance Results * SCAN-COLONOSCOPY (03/15/2024 1:30 PM CDT) Narrative Procedure Note Patricia Maher MD - 03/15/2024 12:34 PM CDT [facility] [address], [address], [place] [address] Patient Name: Peggy Kendrick Gender: Female Exam Date: 03/15/2024 Visit Number: [id number] Age: 53 Years Date of : 1970 Attending MD: Patricia Maher MD Medical Record#: [id number] Procedure: Colonoscopy Indications: Screening after positive non-invasive stool test Referring MD: Ariana Hammonds HAT BLOCKING OPERATOR Primary MD: Ariana Hammonds HAT BLOCKING OPERATOR Medications: Admitting Medications: 0.9% Normal Saline at [facility] Ondansetron Hydrochloride (Zofran) given 4mg by IV [...] of the colorectum is defined by the [place] [employer] (ACG) as an adenoma that is 1 cm or more in size,contains an appreciable villous component, or has high grade dysplasia(Zia JH; Polyp Guideline: Diagnosis, Treatment, and Surveillance forPatients with Colorectal Polyps. Am J [id number];95(11):3566-8916). This polyp qualifies as such. Patients withadvanced adenomas are at increased risk for synchronous and metachronousadditional advanced adenomas. Appropriate follow-up is suggested. MICROSCOPIC A: Performed B: Performed C: Performed Electronically signed by: Linda Bustamante [place] [address] Orders Instruction(s)/Education: Instruction/Education Timeframe Assessment Colon Cancer [...] 03/15/2024 cc: Ariana Hammonds NP cc: Ariana Hamomnds NP Patricia Maher MD OTHER * (ABNORMAL) LIPID PANEL W REFLEX MEASURED LDL (11/05/2016 2:35 PM CUSTOMER ENGINEER) CHOLESTEROL,TOTAL 180 100 - 199 mg/dL 11/05/2016 3:07 PM [facility] TRIGLYCERIDES 191(H) <150 mg/dL 11/05/2016 3:07 PM CUSTOMER ENGINEER [facility] HDL CHOLESTEROL 47 >40 mg/dL 7 3:07 PM CUSTOMER ENGINEER [facility] NON-HDL CHOLESTEROL 133 <145 mg/dl 11/05/2016 3:07 PM CUSTOMER ENGINEER [facility] CHOL/HDL RATIO 3.83 <4.50 11/05/2016 3:07 PM CUSTOMER ENGINEER [facility] LDL CHOLESTEROL 95 <=130 mg/dL 11/05/2016 3:07 PM CUSTOMER ENGINEER [facility] PATIENT STATUS FASTING 11/05/2016 3:07 PM CUSTOMER ENGINEER [facility] Blood BLOOD SPECIMEN / Unknown Venipuncture / Unknown 11/05/2016 2:35 PM CUSTOMER ENGINEER 11/05/2016 2:48 PM CUSTOMER ENGINEER Alisha Gomez MD CHEMISTRY [facility] SENDOUT [place]NAL ZIP [address] [place] [id number] * ANTI HCV (05/01/2016 11:48 AM CDT) HEPATITIS C ANTIBODY Non-Reacti ve Non-Reacti ve 05/01/2016 8:49 PM CDT [facility] Blood BLOOD SPECIMEN / Unknown Venipuncture / Unknown 05/01/2016 11:48 AM CDT 05/01/2016 12:57 PM CDT Narrative [facility] - 05/01/2016 8:49 PM CDT Antibodies to HCV not detected; does not exclude the possibility of exposure to HCV. Janes ESCALANTEBS SEND OUTS [facility] [address] [place] [address], * ANTI HIV 1/2 (05/01/2016 11:48 AM CDT) HIV-1/HIV-2 ANTIBODY Non-Reacti ve Non-Reacti ve 05/01/2016 8:50 PM CDT [facility] Blood BLOOD SPECIMEN / Unknown Venipuncture / Unknown 05/01/2016 11:48 AM CDT 05/01/2016 11:50 AM CDT Narrative [facility] - 05/01/2016 8:50 PM CDT HIV-1 p24 and HIV-1/HIV-2 Ab not detected Janes MUÑOZ SEND OUTS [facility] [address] [place] [address], from Last 3 Months or Most Recently Relevant to Health Maintenance Nhung Kendricknda Rosana Personal/Family Self 1970 [address] [address] Nhung Kendricknda Rosana Workers Comp Self 1970 [address] [place] [address] MireilleNhung downsnda S Workers Comp Self 1970 [address] [place] [address] Mireille, Peggy S Workers Comp Self 1970 [address] [place] [address] Mireille, Peggy S Workers Comp Self 1970 [address] [place] [address] Mireille, Peggy S Workers Comp Self 1970 [address] [place] [address] Mireille, Peggy S Workers Comp Self 1970 [address] [place] [address] Nhung Kendricknda S Personal/Family Self 1970 [address] [place] [address] Mireille, Peggy S Personal/Family Self 1970 [address] [place] [phone] Advance Directives * Full Code (Latest Code [...] 10:21 AM 02/04/2015 11:13 AM Care Teams Last Model Department Supervisor Relationship Specialty Start Date End Date Ayala Benites DO [address] [place] [address] PCP - General Family Practice 06/27/20
== END 2024-05-30 11:28 | disposition home or self-care (01) ==
PROVIDERS: PCP Nurse Practitioner Family; Visit Provider Nurse Practitioner Family
DX: N28.9 Disorder of kidney and ureter, unspecified (principal); D72.829 Elevated white blood cell count, unspecified
CPT/HCPCS: 80048; 85025

== ENCOUNTER 2025-03-30 11:10 | Outpatient (CLI) | payer MEDICARE, SELFPAY | END 2025-03-30 11:11 | disposition home or self-care (01) | PROVIDERS: PCP Nurse Practitioner Family; Visit Provider Nurse Practitioner Family | DX: N39.0 Urinary tract infection, site not specified (principal); B96.20 Unspecified Escherichia coli [E. coli] as the cause of diseases classified elsewhere; R10.9 Unspecified abdominal pain; R11.0 Nausea | CPT/HCPCS: 80053; 81001; 82150; 83690; 85025; 87086 ==

== ENCOUNTER 2025-05-18 09:02 | Outpatient (CLI) | payer MEDICARE, SELFPAY | END 2025-05-18 09:03 | disposition home or self-care (01) | PROVIDERS: PCP Nurse Practitioner Family; Visit Provider Nurse Practitioner Family | DX: I10 Essential (primary) hypertension (principal); E61.1 Iron deficiency | CPT/HCPCS: 80053; 80061; 85025 ==

== ENCOUNTER 2025-07-13 12:39 | Outpatient (CLI) | payer MEDICARE, SELFPAY | END 2025-07-13 12:40 | disposition home or self-care (01) | LOC: NFLDREF 07-16 15:46 | PROVIDERS: PCP Nurse Practitioner Family; Referring Provider Nurse Practitioner Family; Visit Provider Nurse Practitioner Family | DX: R39.9 Unspecified symptoms and signs involving the genitourinary system (principal) | CPT/HCPCS: 81001; 87086 ==